=== PATIENT | female | born 1950 | race Caucasian/White ===

== ENCOUNTER 2023-09-30 16:32 | Inpatient (IN) ==
--- NOTE | 2023-09-30 16:43 | ED Triage Note ---
Date of Service September 30, 2023 Provider in Triage Author: Arthur Sidhu History of Present Illness This patient was briefly evaluated while in triage. An abbreviated physical exam was performed. This patient is a 72-year-old Female who presents to the ED for evaluation of abdominal pain and back pain x 4 hours, states believes is a kidney stone. Pt reports bilateral flank pain with radiation to abdomen, epigastric pain and cramping. Physical Exam CONSTITUTIONAL: in no acute pain or distress, resting comfortably SKIN: pink, warm, dry CARDIAC: regular rate and rhythm RESPIRATORY: in no respiratory distress, lungs clear to auscultation ABDOMEN: + epigastric TTP MSK: 5/5 strength throughout NEURO: no neuro deficits, alert and oriented x 3 Initial orders for labs and / or imaging were placed and patient was placed in the waiting area until a bed is available. Please see further documentation for the full ED course.
[2023-09-30 18:24] LABS: Hematocrit (blood only) 45.6 % (37.0-47.0); Hemoglobin 16.2 g/dl (12.0-16.0); Mean Corpuscular Hemoglobin 32.4 pg (25.0-34.0); Mean Corpuscular Hgb Conc 35.5 g/dL (32.0-36.0); Mean Corpuscular Volume 91.2 fL (80.0-100.0); Platelet Count 270 K/uL (130-400); RDW Coefficient of Variation 11.8 % (11.5-14.5); RDW Standard Deviation 39.5 fL (36.4-46.3)
[2023-09-30 18:48] LABS: Alanine Aminotransferase 243 U/L (7-52); Albumin Level 4.3 gm/dl (3.4-5.0); Alkaline Phosphatase 255 U/L (34-104); Anion Gap 14 (3-11); Aspartate Aminotransferase 166 U/L (13-39); BUN Creatinine Ratio 15.6 (10-20); Bilirubin,Total 4.8 mg/dl (0.2-1.0); Blood Urea Nitrogen 12 mg/dl (6-23); Calcium 10.2 mg/dl (8.6-10.3); Carbon Dioxide 24 mmol/L (21-32); Chloride 97 mmol/L (98-107); Est GFR (African American) 89.4 ml/min; Est GFR (Non-African American) 77.1 ml/min; Globulin 4.2 gm/dl (2.5-4.0); Glucose 345 mg/dl (70-99(Fasting)); Potassium 4.2 mmol/L (3.5-5.1); Sodium 135 mmol/L (136-145); Total Protein 8.5 gm/dl (6.0-8.3); Troponin I High Sensitivity 5.3 pg/ml (0-14)
[2023-09-30] MEDS ORDERED: SODIUM CHLORIDE 0.9% 1,000 ML IV ONE (18:48)
[2023-09-30 18:55] LABS: Basophils # (auto) 0.05 K/uL (0.00-0.20); Basophils % (auto) 0.3 %; Immature Granulocytes # (auto) 0.11 K/uL (0.01-0.20); Immature Granulocytes % (auto) 0.6 %; Lymphocytes # (auto) 0.36 K/uL (1.20-3.40); Lymphocytes % (auto) 2.1 %; Monocytes # (auto) 0.88 K/uL (0.11-0.59); Monocytes % (auto) 5.1 %; Neutrophils % (auto) 91.9 %
[2023-09-30 18:58] LABS: Lipase 8093 U/L (11-82)
--- NOTE | 2023-09-30 19:05 | Emergency Department Note ---
Impression & Plan Acute gallstone pancreatitis, Transaminitis, Abdominal pain ED Provider Note NAME: SHARI SUTTON AGE: 72 SEX: F : 1950 ARRIVES VIA: Ambulance INFORMANT: Patient ED PROVIDER(S): Arthur Sidhu DO CHIEF COMPLAINT: Abdominal pain HPI: Patient is a 72-year-old female who presents to the ER for epigastric abdominal pain which started earlier this morning. She notes over the weekend she did have some right sided back pain. She felt like that was consistent with her previous kidney stones. She denies any headache or change in vision. She does have some nausea and tried to vomit. No dysuria, urgency, or frequency. No other exacerbating or remitting factors. Denies any history of gallstones or cancer. ADDITIONAL HISTORY OBTAINED: Per HPI Chronic Medical/Social Conditions Affecting Care: Per HPI PAST MEDICAL HISTORY:See Below PAST SURGICAL HISTORY:See Below FAMILY HISTORY:See Below SOCIAL HISTORY:See Below HOME MEDICATIONS:See Below ALLERGIES:See Below VITALS:See Below PHYSICAL EXAMINATION: GENERAL: Sitting up in bed, alert, disheveled, mild distress EYE EXAM: normal conjunctiva. PERRL and EOM's grossly intact. OROPHARYNX: mucous membranes are moist NECK: supple, no nuchal rigidity, no adenopathy, non-tender LUNGS: Clear to auscultation. Normal chest wall mechanics HEART: no murmurs, S1 normal and S2 normal ABDOMEN: abdomen soft, non-tender, normo-active bowel sounds, no masses, no rebound or guarding. UPPER EXTREMITIES: upper extremities are grossly normal. LOWER EXTREMITIES: No pitting edema. NEURO EXAM: Normal sensorium, cranial nerves II-XII grossly intact, normal speech, no gross weakness of arms, no gross weakness of legs. MEDICAL DECISION MAKING: Patient is a 72-year-old female who presents ER for the above-stated complaint. IV was established blood work was obtained. Labs show leukocytosis 17,000. No significant anemia. BMP with a glucose of 340. Lactate was mildly elevated 2.4. Bilirubin was elevated at nearly 5 and and there was a transaminitis. Troponin was negative. Lipase elevated at 8000. There is a significant delay in care due to high volumes. UA was contaminated. CT abdomen pelvis shows gallstones and pancreatitis. Do favor this consistent with choledocholithiasis causing gallstone pancreatitis. Discussed with Dr. Lewis who agrees with admission here as GI can perform an ERCP. Patient was given IV fluids, morphine and Zosyn. Discussed with Dr. Ugalde approved for further evaluation management treatment. Consults/Care Managements Discussions: Per MDM Triage Nursing notes reviewed. Limited review of prior medical records performed Vital Signs: reviewed and remarkable for no significant abnormalities Differential diagnosis: Differential diagnoses includes but is not limited to gastritis, peptic ulcer disease, GERD, gallbladder disease, pancreatitis, small bowel obstruction, appendicitis, diverticulitis, hernia, urinary tract infection, torsion, perforation, trauma, infectious. ER treatment provided: See below Diagnostics interpreted by me include EKG and cardiac monitoring as listed below: -Cardiac Monitoring: An order was placed for continuous cardiac monitoring. The monitor shows a rate of 101 with sinus rhythm. -ECG: Sinus tachycardia rate of 122 Right bundle branch block T wave inversion in septal leads QTc 498 -Laboratory studies:Interpreted by me as stated above in MDM and shown below. Imaging studies: Xrays: As interpreted by me:none CTs show: CT abdomen pelvis per my preliminary interpretation shows dilated gallbladder with gallstones CT abdomen pelvis per radiology shows no acute pathology Procedures:none Critical Care: None Past Med/Surg History Social History Smoking Status: Never smoker Preferred Language: German Feels Safe at Home: Yes Allergies Allergies Allergy/AdvReac Type Severity Reaction Status Date / Time aspirin Allergy ringing Verified 09/30/23 22:08 ears,shakes,diarrhea,upset stomach Tetanus Vaccines and Toxoid Allergy convulsions Verified 09/30/23 22:09 coconut AdvReac Diarrhea Verified 09/30/23 22:13 diazepam [From Valium] AdvReac doesn't Verified 09/30/23 22:12 work procaine [From Novocain] 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 Allergy migraine Uncoded 09/30/23 22:10 headaches Home Meds Home Medications Medication Instructions Recorded Confirmed No Known Home Medications 09/30/23 09/30/23 Results & Data (ED) Vital Signs Vital Signs - 24 hr 09/30/23 16:41 09/30/23 21:29 09/30/23 21:33 Temperature 36.6 C Temperature Source Temporal Artery Scan Pulse Rate 101 H 120 H 107 H Pulse Rate [Apical] Respiratory Rate 18 22 Respiratory Effort / Characteristics Respiratory Depth Respiratory Pattern Blood Pressure 159/88 H Blood Pressure [Right Arm] Blood Pressure Mean 111 Blood Pressure Mean [Right Arm] Blood Pressure Position Sitting Pulse Oximetry 97 95 Oxygen Delivery Method Room Air Room Air Sepsis Recent Fever Within 48 Hours No Sepsis New/Unexplained Change in Mental Status N/A Sepsis Action Taken by Nursing No Action Required 09/30/23 22:17 09/30/23 23:49 Temperature Temperature Source Pulse Rate Pulse Rate [Apical] 92 H 84 Respiratory Rate 24 22 Respiratory Effort / Characteristics Non-Labored Spontaneous Non-Labored Spontaneous Respiratory Depth Normal Normal Respiratory Pattern Regular Regular Blood Pressure Blood Pressure [Right Arm] 143/74 H 129/64 Blood Pressure Mean Blood Pressure Mean [Right Arm] 97 85 Blood Pressure Position Pulse Oximetry 96 93 Oxygen Delivery Method Room Air Room Air Sepsis Recent Fever Within 48 Hours Sepsis New/Unexplained Change in Mental Status Sepsis Action Taken by Nursing Laboratory Data 09/30/23 18:05 09/30/23 18:05 Lab Results 09/30/23 09/30/23 09/30/23 Range/Units 18:05 19:04 20:17 WBC 17.20 H (4.8-10.8) K/ul RBC 5.00 (4.20-5.40) M/uL Hgb 16.2 H (12.0-16.0) g/dl Hct 45.6 (37.0-47.0) % MCV 91.2 (80.0-100.0) fL MCH 32.4 (25.0-34.0) pg MCHC 35.5 (32.0-36.0) g/dL RDW Std Deviation 39.5 (36.4-46.3) fL RDW Coeff of Laura 11.8 (11.5-14.5) % Plt Count 270 (130-400) K/uL MPV 10.0 (9.4-12.4) fL Immature Gran % (Auto) 0.6 % Neut % (Auto) 91.9 % Lymph % (Auto) 2.1 % Liberty % (Auto) 5.1 % Eos % (Auto) 0.0 % Baso % (Auto) 0.3 % Neut # (Auto) 15.80 H (1.40-6.50) K/uL Lymph # (Auto) 0.36 L (1.20-3.40) K/uL Liberty # (Auto) 0.88 H (0.11-0.59) K/uL Eos # (Auto) 0.00 (0.00-0.50) K/uL Baso # (Auto) 0.05 (0.00-0.20) K/uL Immature Gran # (Auto) 0.11 (0.01-0.20) K/uL Sodium 135 L (136-145) mmol/L Potassium 4.2 (3.5-5.1) mmol/L Chloride 97 L (98-107) mmol/L Carbon Dioxide 24 (21-32) mmol/L Anion Gap 14 H (3-11) BUN 12 (6-23) mg/dl Creatinine 0.77 (0.6-1.2) mg/dl Est Cr Clr Drug Dosing Not Reportable Est GFR ( Amer) 89.4 ml/min Est GFR (Non-Af Amer) 77.1 ml/min BUN/Creatinine Ratio 15.6 (10-20) Glucose 345 H* (70-99(Fasting)) mg/dl Lactate 2.4 H* (0.4-2.0) mmol/L Calcium 10.2 (8.6-10.3) mg/dl Total Bilirubin 4.8 H (0.2-1.0) mg/dl AST 166 H (13-39) U/L ALT 243 H (7-52) U/L Alkaline Phosphatase 255 H (34-104) U/L Troponin I High Sens 5.3 (0-14) pg/ml Total Protein 8.5 H (6.0-8.3) gm/dl Albumin 4.3 (3.4-5.0) gm/dl Globulin 4.2 H (2.5-4.0) gm/dl Albumin/Globulin Ratio 1.0 (0.9-2) Lipase 8093 H (11-82) U/L Urine Color Dark Yellow Urine Appearance Clear (Clear) Urine pH 5.0 (4.5-7.5) Ur Specific Hayti 1.029 (1.000-1.030) Urine Protein Trace H (Negative) Urine Glucose (UA) 3+ H (Negative) Urine Ketones 2+ H (Negative) Urine Blood Negative (Negative) Urine Nitrite Negative (Negative) Urine Bilirubin 1+ H (Negative) Urine Urobilinogen Negative (Negative) Ur Leukocyte Esterase Negative (Negative) Urine WBC (Auto) 5-10 H (0-5) /hpf Urine RBC (Auto) 0-4 (0-4) /hpf U Hyaline Cast (Auto) 1-5 (0-5) /lpf U Epithel Cells (Auto) >30 H (0-5) /lpf Urine Bacteria (Auto) 1+ H (Negative) 09/30/23 Range/Units 23:40 WBC (4.8-10.8) K/ul RBC (4.20-5.40) M/uL Hgb (12.0-16.0) g/dl Hct (37.0-47.0) % MCV (80.0-100.0) fL MCH (25.0-34.0) pg MCHC (32.0-36.0) g/dL RDW Std Deviation (36.4-46.3) fL RDW Coeff of Laura (11.5-14.5) % Plt Count (130-400) K/uL MPV (9.4-12.4) fL Immature Gran % (Auto) % Neut % (Auto) % Lymph % (Auto) % Liberty % (Auto) % Eos % (Auto) % Baso % (Auto) % Neut # (Auto) (1.40-6.50) K/uL Lymph # (Auto) (1.20-3.40) K/uL Liberty # (Auto) (0.11-0.59) K/uL Eos # (Auto) (0.00-0.50) K/uL Baso # (Auto) (0.00-0.20) K/uL Immature Gran # (Auto) (0.01-0.20) K/uL Sodium (136-145) mmol/L Potassium (3.5-5.1) mmol/L Chloride (98-107) mmol/L Carbon Dioxide (21-32) mmol/L Anion Gap (3-11) BUN (6-23) mg/dl Creatinine (0.6-1.2) mg/dl Est Cr Clr Drug Dosing Est GFR ( Amer) ml/min Est GFR (Non-Af Amer) ml/min BUN/Creatinine Ratio (10-20) Glucose (70-99(Fasting)) mg/dl Lactate 1.9 (0.4-2.0) mmol/L Calcium (8.6-10.3) mg/dl Total Bilirubin (0.2-1.0) mg/dl AST (13-39) U/L ALT (7-52) U/L Alkaline Phosphatase (34-104) U/L Troponin I High Sens (0-14) pg/ml Total Protein (6.0-8.3) gm/dl Albumin (3.4-5.0) gm/dl Globulin (2.5-4.0) gm/dl Albumin/Globulin Ratio (0.9-2) Lipase (11-82) U/L Urine Color Urine Appearance (Clear) Urine pH (4.5-7.5) Ur Specific Hayti (1.000-1.030) Urine Protein (Negative) Urine Glucose (UA) (Negative) Urine Ketones (Negative) Urine Blood (Negative) Urine Nitrite (Negative) Urine Bilirubin (Negative) Urine Urobilinogen (Negative) Ur Leukocyte Esterase (Negative) Urine WBC (Auto) (0-5) /hpf Urine RBC (Auto) (0-4) /hpf U Hyaline Cast (Auto) (0-5) /lpf U Epithel Cells (Auto) (0-5) /lpf Urine Bacteria (Auto) (Negative) Administered Medications Discontinued Medications Sodium Chloride (Nss) 1,000 mls @ 999 mls/hr IV .Q1H1M ONE Stop: 09/30/23 19:48 Last Infusion: 09/30/23 22:48 Dose: Infused Documented By: maintenance worker swimming pool: 09/30/23 21:10 Dose: 999 mls/hr Documented By: PRUDENCE Piperacillin Sod/Tazobactam Sod (Zosyn) 4.5 gm in 100 mls @ 200 mls/hr IV NOW ONE Stop: 09/30/23 21:13 Last Infusion: 09/30/23 22:48 Dose: Infused Documented By: maintenance worker swimming pool: 09/30/23 21:30 Dose: 200 mls/hr Documented By: PRUDENCE Insulin Human Regular (Novolin-R Insulin Per Unit Charge) 4 units IV NOW STA Stop: 09/30/23 23:13 Last Admin: 09/30/23 23:39 Dose: 4 units Documented By: MED Co-signed By: LEONELA Morphine Sulfate (Morphine Sulfate 10 Mg/Ml Carp/Vial) 6 mg IV NOW STA Stop: 09/30/23 20:45 Last Admin: 09/30/23 21:24 Dose: 6 mg Documented By: PRUDENCE Ondansetron HCl (Ondansetron Inj 2 Mg/Ml 2 Ml Vial) 4 mg IV NOW STA Stop: 09/30/23 20:45 Last Admin: 09/30/23 21:17 Dose: 4 mg Documented By: PRUDENEC Imaging Data Radiologist's Impression: Abdomen/Pelvis CT 09/30/23 16:43 Exam(s): CT ABDOMEN + PELVIS With Contrast IV Amt: 88ML OPTIRAY 320 EXAM: CT Abdomen and Pelvis With Intravenous Contrast CLINICAL HISTORY: Reason for exam: Epigastric/bilateral flank pain. TECHNIQUE: Axial computed tomography images of the abdomen and pelvis with intravenous contrast. CTDI is 25.04 mGy and DLP is 1134.28 mGy-cm. Automated exposure control was utilized for the study. A dose lowering technique was utilized adhering to the principles of ALARA. CONTRAST: Patient received 88ML OPTIRAY 320 of IV contrast COMPARISON: No relevant prior studies available. FINDINGS: Lung bases: Unremarkable. No mass. No consolidation. ABDOMEN: Liver: Hepatic steatosis. Gallbladder and bile ducts: Cholelithiasis. No ductal dilation. Pancreas: Unremarkable. No mass. No ductal dilation. Spleen: Unremarkable. No splenomegaly. Adrenals: Unremarkable. No mass. Kidneys and ureters: Unremarkable. No hydronephrosis or delayed nephrogram. Stomach and bowel: Unremarkable. No obstruction. No mucosal thickening. PELVIS: Appendix: No findings to suggest acute appendicitis. Bladder: Decompressed urinary bladder. Reproductive: Unremarkable as visualized. ABDOMEN and PELVIS: Intraperitoneal space: Unremarkable. No free air. No significant fluid collection. Bones/joints: No acute fracture. No dislocation. Soft tissues: Unremarkable. Vasculature: Unremarkable. No abdominal aortic aneurysm. Lymph nodes: Unremarkable. No enlarged lymph nodes. IMPRESSION: 1. No hydronephrosis or delayed nephrogram. 2. Hepatic steatosis. 3. Cholelithiasis. Electronically signed by: Tobias Metz MD 09/30/23 20:23 PM Gallbladder Ultrasound 09/30/23 21:31 Exam(s): US GALLBLADDER EXAM: US Abdomen Limited, Gallbladder CLINICAL HISTORY: Reason for exam: gallstones. TECHNIQUE: Real-time ultrasound of the right upper quadrant with image documentation. COMPARISON: No relevant prior studies available. FINDINGS: Gallbladder: Cholelithiasis. No gallbladder wall thickening. Negative Carson sign. Common bile duct: Unremarkable as visualized. No stones. No dilation. Normal, 5 mm common bile duct. Pancreas: Unremarkable as visualized. IMPRESSION: Cholelithiasis. No gallbladder wall thickening. Negative Carson sign. Electronically signed by: Tobias Metz MD 10/01/23 00:08 AM Discharge Plan Visit Data Chief Complaint: Kidney Stone Stated Complaint: ABDOMINAL/BACK PAIN, KIDNEY STONE ED Provider: Arthur Sidhu Discharge Problem: Acute gallstone pancreatitis, Transaminitis, Abdominal pain Forms Stand Alone Forms: Adlyfe Prescriptions Prescriptions: No Action No Known Home Medications Referrals Referrals: PCP,NO [Primary Care Provider] - Discharge Problem: Abdominal pain Qualifiers: Abdominal location: unspecified location Qualified Code(s): R10.9 - Unspecified abdominal pain
--- NOTE | 2023-09-30 20:23 | CT Scan Report ---
Exam(s): CT ABDOMEN + PELVIS With Contrast IV Amt: 88ML OPTIRAY 320 EXAM: CT Abdomen and Pelvis With Intravenous Contrast CLINICAL HISTORY: Reason for exam: Epigastric/bilateral flank pain. TECHNIQUE: Axial computed tomography images of the abdomen and pelvis with intravenous contrast. CTDI is 25.04 mGy and DLP is 1134.28 mGy-cm. Automated exposure control was utilized for the study. A dose lowering technique was utilized adhering to the principles of ALARA. CONTRAST: Patient received 88ML OPTIRAY 320 of IV contrast COMPARISON: No relevant prior studies available. FINDINGS: Lung bases: Unremarkable. No mass. No consolidation. ABDOMEN: Liver: Hepatic steatosis. Gallbladder and bile ducts: Cholelithiasis. No ductal dilation. Pancreas: Unremarkable. No mass. No ductal dilation. Spleen: Unremarkable. No splenomegaly. Adrenals: Unremarkable. No mass. Kidneys and ureters: Unremarkable. No hydronephrosis or delayed nephrogram. Stomach and bowel: Unremarkable. No obstruction. No mucosal thickening. PELVIS: Appendix: No findings to suggest acute appendicitis. Bladder: Decompressed urinary bladder. Reproductive: Unremarkable as visualized. ABDOMEN and PELVIS: Intraperitoneal space: Unremarkable. No free air. No significant fluid collection. Bones/joints: No acute fracture. No dislocation. Soft tissues: Unremarkable. Vasculature: Unremarkable. No abdominal aortic aneurysm. Lymph nodes: Unremarkable. No enlarged lymph nodes. IMPRESSION: 1. No hydronephrosis or delayed nephrogram. 2. Hepatic steatosis. 3. Cholelithiasis. Electronically signed by: Tobias Metz MD 09/30/23 20:23 PM
[2023-09-30] MEDS ORDERED: MoRPHine SULFATE 10 MG/ML CARP/VIAL IV STA (20:44)
[2023-09-30] MEDS ORDERED: PIPERACILLIN/TAZOBACTAM 4.5 GM/100 ML BAG IV ONE (20:44)
[2023-09-30] MEDS ORDERED: ONDANSETRON INJ 2 MG/ML 2 ML VIAL IV STA (20:44)
--- NOTE | 2023-09-30 21:30 | Surgery Consultation ---
Date of Consultation September 30, 2023 Assessment & Plan (1) Acute gallstone pancreatitis: I discussed with the treating emergency room physician and the patient is being admitted on the hospitalist service. We recommend proceeding as follows from a surgical perspective: It appears that the patient is suffering from gallstone pancreatitis Analgesics to be provided Antiemetics to be provided Patient was to be resuscitated aggressively with intravenous fluids N.p.o. status should be implemented Serial labs should be for May be beneficial to check a gallbladder ultrasound for further delineation of the patient's biliary anatomy I discussed with the treating emergency room physician and he has already discussed case with gastroenterology as I feel the patient will likely need an ERCP due to her elevated LFTs. We will leave the decision about ordering an MRCP to this service The patient may benefit from a cholecystectomy at some point to prevent recurrence of gallstone pancreatitis. I did discuss with the patient that prior to undergoing cholecystectomy she will need a gastroenterology evaluation to evaluate for the potential of choledocholithiasis and would also be preferable to have her pancreatitis resolved or improved prior to undergoing surgical intervention Will continue to follow along with the patient is hospitalized with further recommendations to follow Supervising Physician Co-Signing Physician Notes d/w HIRAL Novak, labs and imaging reviewed, agree with above. Cholelithiasis with pancreatitis and likely choledocholithiasis. Admission to medicine, iv abx, npo, GI consult for possible ERCP. Cholecystectomy at some point, either while inpatient or short interval follow up as outpatient. will follow. History of Present Illness Reason for Consultation: Gallstone pancreatitis History of Present Illness This is a 72-year-old female who presented to the emergency department secondary to development of bilateral flank pain at approximate 11:00 AM this morning. Patient does have a history of kidney stones and had pain similar to this when she was passing kidney stones and therefore thought that that was what the problem was. In addition to the bilateral flank pain she notes that the pain subsequently began to develop in the epigastric area. The patient self-induced vomiting as she thought that this would make her feel better but it provided no relief. She is otherwise not had any nausea or vomiting. She denies any other palliative or provocative factors and denies any other radiation to the pain. She denies any fevers, shakes, or chills. She has never had any prior surgical intervention before. She has never had either an upper or lower endoscopy before Since arrival to hospital the patient has had labs and imaging which independent reviewed. Patient had a CT scan of the abdomen and pelvis. This scan did not demonstrate any kidney stones or hydronephrosis. The patient was noted to have cholelithiasis. There is no biliary ductal dilatation. The pancreas was noted to be unremarkable on this study. Labs included a CBC were white blood cell count was elevated at 17.2. Her hemoglobin and hematocrit were 16.2 and 45.6. Platelet count was normal. Chemistry profile showed sodium was 135 with a normal potassium. Her BUN and creatinine were both normal. The patient was noted to have an elevated lactic acid level at 2.4. Her total bilirubin was elevated at 4.8. Her AST and ALT were both elevated at 166 and 243 r espectively. Her alkaline phosphatase was 255. The patient was noted to have an elevated lipase at 8093. At the time of my interview the patient was resting comfortably in bed and she was in no distress Concerning past medical history the patient only has a past medical history of kidney stones Concerning past surgical history she has never had surgery. Concerning allergies she is allergic to aspirin and tetanus shots. 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 Allergy migraine Uncoded 09/30/23 22:10 headaches Home Medications Medication Instructions Recorded Confirmed Type No Known Home Medications 09/30/23 09/30/23 History Patient History Social History Smoking Status: Never smoker Preferred Language: Swazi Feels Safe at Home: Yes Review of Systems Constitutional: no fever and no chills Eyes: + corrective lenses Ear, Nose, Mouth, Throat: no hearing loss Respiratory: no cough and no dyspnea Cardiovascular: no chest pain Gastrointestinal: as per Subjective / HPI Genitourinary: no dysuria Musculoskeletal: + back pain (Bilateral flank) Integumentary: no rash Neurologic: no localized weakness Physical Exam Constitutional: WD/WN, vitals as above Eyes: + anicteric sclerae ENMT: Ears: no hearing impairment and no external ear abnormality Sublingual jaundice is absent at the time of my Neck: trachea midline Respiratory: normal respiratory effort; no respiratory distress and no labored breathing Cardiovascular: Rate/Rhythm: regular rate and regular rhythm Gastrointestinal (Abdomen): Abdomen is soft and nondistended. Her abdomen is nonrigid. There is no rebound tenderness or guarding but patient had marked pain with palpation in the epigastric Musculoskeletal: No calf tenderness Skin: no rashes Neurologic: moves all extremities Psychiatric: A+Ox3, euthymic affect Results & Data Vital Signs (Past 12 Hours) Vital Signs Temp Pulse Resp BP Pulse Ox O2 Del Method 09/30/23 16:41 36.6 C 101 H 18 159/88 H 97 Room Air PG Care Time/CCT Total # of Minutes Spent Total Time Spent with Patient: Total time spent is greater than 50% in coordination of care (as documented) at patient's floor/unit and/or counseling patient: Coding Level of Care Code 96028 INT INP/OBS CARE 3/75MIN Diagnoses Acute gallstone pancreatitis K85.10
[2023-09-30 21:37] LABS: Appearance Urine Clear (Clear); Bacteria Urine Automated 1+ (Negative); Blood Urine Negative (Negative); Color Urine Dark Yellow; Epithelial Cell Urine Auto >30 /lpf (0-5); Glucose Urine UA 3+ (Negative); Ketones Urine 2+ (Negative); Leukocyte Esterase Urine Negative (Negative); Nitrite Urine Negative (Negative); Protein Urine Trace (Negative); RBC Urine Automated 0-4 /hpf (0-4); Specific Gravity Urine 1.029 (1.000-1.030); Urobilinogen Urine Negative (Negative)
[2023-09-30 21:43] LABS: Bilirubin Urine 1+ (Negative)
[2023-09-30] MEDS ORDERED: NovoLIN-R INSULIN PER UNIT CHARGE IV STA (23:12)
--- NOTE | 2023-09-30 23:22 | History & Physical Report ---
Date of Service September 30, 2023 Assessment & Plan (1) Acute gallstone pancreatitis: Plan: 72-year-old female with past med history significant for possible hiatal hernia and did not go to doctors for last 20 years comes because of abdominal pain radiating to the back started at 11 AM today. It was 8/10 in severity. Also with nausea. Denies any fevers. Had normal bowel movement today morning. Normal bladder movements. Denies any chest pain or shortness of breath. No cough. No headache. No runny nose or sore throat. Otherwise appetite is okay. Otherwise ambulating and climbing steps okay. Patient states last few months she is having on and off abdominal pain after eating food but it is to subside but today it was persistent so she came to the ER. Currently pain is 2/10 in severity. Resting comfortably. Acute gallstone pancreatitis Presents with abdominal pain Elevated lipase Elevated LFTs. Possible choledocholithiasis. Will follow gallbladder ultrasound and MRCP results Follow repeat LFTs Will check lipid profile Aggressive IV fluids, IV Dilaudid as needed, IV antiemetics as needed Consult GI and surgery Close monitor Possible cholecystitis/cholangitis Will follow gallbladder ultrasound and MRCP IV fluids and IV Zosyn GI and surgery consulted Close monitor. Hyperglycemia New onset diabetes Not been doctor for many years Will place on Lantus insulin sliding scale Follow blood sugars and HbA1c levels DVT prophylaxis SCDs for now Disposition Med/tele Full code History of Present Illness Chief Complaint: Abdominal pain Primary Care Provider: NO PCP 72-year-old female with past med history significant for possible hiatal hernia and did not go to doctors for last 20 years comes because of abdominal pain radiating to the back started at 11 AM today. It was 8/10 in severity. Also with nausea. Denies any fevers. Had normal bowel movement today morning. Normal bladder movements. Denies any chest pain or shortness of breath. No cough. No headache. No runny nose or sore throat. Otherwise appetite is okay. Otherwise ambulating and climbing steps okay. Patient states last few months she is having on and off abdominal pain after eating food but it is to subside but today it was persistent so she came to the ER. Currently pain is 2/10 in severity. Resting comfortably. Past medical history. As mentioned above Past surgical history. Denies any surgeries Social history. Social smoking. Alcohol occasional. No drug use. Family history. Mother had skin cancer. Brother had skin cancer. Allergies Allergy/AdvReac Type Severity Reaction Status Date / Time aspirin Allergy ringing Verified 09/30/23 22:08 ears,shakes,diarrhea,upset stomach Tetanus Vaccines and Toxoid Allergy convulsions Verified 09/30/23 22:09 coconut AdvReac Diarrhea Verified 09/30/23 22:13 diazepam [From Valium] AdvReac doesn't Verified 09/30/23 22:12 work procaine [From Novocain] AdvReac 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 Allergy migraine Uncoded 09/30/23 22:10 headaches Home Medications Medication Instructions Recorded Confirmed Type No Known Home Medications 09/30/23 09/30/23 History Past Med/Surg History Social History Smoking Status: Never smoker Hx Alcohol Use: Yes Hx Substance Use: No Preferred Language: Bahamian Beliefs That Will Affect Care: None Current Living Situation: Alone Other Information That Helps Us Care for You: No Feels Safe at Home: Yes Safety Concerns: Feels Safe At This Time Assistive Devices: Glasses Review of Systems Review of Systems: All systems reviewed & are unremarkable except as noted in HPI & below Physical Exam Physical Exam: General-Not in distress Head- atraumatic Eyes- PERRL. ENT- oropharynx clear Neck- supple, no JVD. Lungs- clear to auscultation no wheezing or crackles. Heart- regular rhythm; no murmur, no gallop. Abdomen- normal bowel sounds, soft, mild tenderness in RUQ and epigastric region Extremities- Trace pretibial edema, no erythema seen. Neuro- alert, oriented x 3; PERRL,; no facial palsy; no dysarthria; moves extremities. Skin- warm & dry Results & Data Results & Data Vital Signs (Past 12 Hours) Vital Signs Temp Pulse Pulse Resp BP BP Pulse Ox 09/30/23 22:17 92 H 24 143/74 H 96 09/30/23 21:33 107 H 22 95 09/30/23 21:29 120 H 09/30/23 16:41 36.6 C 101 H 18 159/88 H 97 O2 Del Method 09/30/23 22:17 Room Air 09/30/23 21:33 Room Air 09/30/23 21:29 09/30/23 16:41 Room Air Diagnostic Findings Laboratory Results WBC 17.20 K/ul (4.8-10.8) H 09/30/23 18:05 RBC 5.00 M/uL (4.20-5.40) 09/30/23 18:05 Hgb 16.2 g/dl (12.0-16.0) H 09/30/23 18:05 Hct 45.6 % (37.0-47.0) 09/30/23 18:05 MCV 91.2 fL (80.0-100.0) 09/30/23 18:05 MCH 32.4 pg (25.0-34.0) 09/30/23 18:05 MCHC 35.5 g/dL (32.0-36.0) 09/30/23 18:05 RDW Std Deviation 39.5 fL (36.4-46.3) 09/30/23 18:05 RDW Coeff of Laura 11.8 % (11.5-14.5) 09/30/23 18:05 Plt Count 270 K/uL (130-400) 09/30/23 18:05 MPV 10.0 fL (9.4-12.4) 09/30/23 18:05 Immature Gran % (Auto) 0.6 % 09/30/23 18:05 Neut % (Auto) 91.9 % 09/30/23 18:05 Lymph % (Auto) 2.1 % 09/30/23 18:05 [place] % (Auto) 5.1 % 09/30/23 18:05 Eos % (Auto) 0.0 % 09/30/23 18:05 Baso % (Auto) 0.3 % 09/30/23 18:05 Neut # (Auto) 15.80 K/uL (1.40-6.50) H 09/30/23 18:05 Lymph # (Auto) 0.36 K/uL (1.20-3.40) L 09/30/23 18:05 [place] # (Auto) 0.88 K/uL (0.11-0.59) H 09/30/23 18:05 Eos # (Auto) 0.00 K/uL (0.00-0.50) 09/30/23 18:05 Baso # (Auto) 0.05 K/uL (0.00-0.20) 09/30/23 18:05 Immature Gran # (Auto) 0.11 K/uL (0.01-0.20) 09/30/23 18:05 Sodium 135 mmol/L (136-145) L 09/30/23 18:05 Potassium 4.2 mmol/L (3.5-5.1) 09/30/23 18:05 Chloride 97 mmol/L (98-107) L 09/30/23 18:05 Carbon Dioxide 24 mmol/L (21-32) 09/30/23 18:05 Anion Gap 14 (3-11) H 09/30/23 18:05 BUN 12 mg/dl (6-23) 09/30/23 18:05 Creatinine 0.77 mg/dl (0.6-1.2) 09/30/23 18:05 Est Cr Clr Drug Dosing Not Reportable 09/30/23 18:05 Est GFR ( Amer) 89.4 ml/min 09/30/23 18:05 Est GFR (Non-Af Amer) 77.1 ml/min 09/30/23 18:05 BUN/Creatinine Ratio 15.6 (10-20) 09/30/23 18:05 Glucose 345 mg/dl (70-99(Fasting)) H* 09/30/23 18:05 Lactate 2.4 mmol/L (0.4-2.0) H* 09/30/23 20:17 Calcium 10.2 mg/dl (8.6-10.3) 09/30/23 18:05 Total Bilirubin 4.8 mg/dl (0.2-1.0) H 09/30/23 18:05 AST 166 U/L (13-39) H 09/30/23 18:05 ALT 243 U/L (7-52) H 09/30/23 18:05 Alkaline Phosphatase 255 U/L (34-104) H 09/30/23 18:05 Troponin I High Sens 5.3 pg/ml (0-14) 09/30/23 18:05 Total Protein 8.5 gm/dl (6.0-8.3) H 09/30/23 18:05 Albumin 4.3 gm/dl (3.4-5.0) 09/30/23 18:05 Globulin 4.2 gm/dl (2.5-4.0) H 09/30/23 18:05 Albumin/Globulin Ratio 1.0 (0.9-2) 09/30/23 18:05 Lipase 8093 U/L (11-82) H 09/30/23 18:05 Urine Color Dark Yellow 09/30/23 19:04 Urine Appearance Clear (Clear) 09/30/23 19:04 Urine pH 5.0 (4.5-7.5) 09/30/23 19:04 Ur Specific [place] 1.029 (1.000-1.030) 09/30/23 19:04 Urine Protein Trace (Negative) H 09/30/23 19:04 Urine Glucose (UA) 3+ (Negative) H 09/30/23 19:04 Urine Ketones 2+ (Negative) H 09/30/23 19:04 Urine Blood Negative (Negative) 09/30/23 19:04 Urine Nitrite Negative (Negative) 09/30/23 19:04 Urine Bilirubin 1+ (Negative) H 09/30/23 19:04 Urine Urobilinogen Negative (Negative) 09/30/23 19:04 Ur Leukocyte Esterase Negative (Negative) 09/30/23 19:04 Urine WBC (Auto) 5-10 /hpf (0-5) H 09/30/23 19:04 Urine RBC (Auto) 0-4 /hpf (0-4) 09/30/23 19:04 U Hyaline Cast (Auto) 1-5 /lpf (0-5) 09/30/23 19:04 U Epithel Cells (Auto) >30 /lpf (0-5) H 09/30/23 19:04 Urine Bacteria (Auto) 1+ (Negative) H 09/30/23 19:04 Impressions Abdomen/Pelvis CT 09/30/23 16:43 Exam(s): CT ABDOMEN + PELVIS With Contrast IV Amt: 88ML OPTIRAY 320 EXAM: CT Abdomen and Pelvis With Intravenous Contrast CLINICAL HISTORY: Reason for exam: Epigastric/bilateral flank pain. TECHNIQUE: Axial computed tomography images of the abdomen and pelvis with intravenous contrast. CTDI is 25.04 mGy and DLP is 1134.28 mGy-cm. Automated exposure control was utilized for the study. A dose lowering technique was utilized adhering to the principles of ALARA. CONTRAST: Patient received 88ML OPTIRAY 320 of IV contrast COMPARISON: No relevant prior studies available. FINDINGS: Lung bases: Unremarkable. No mass. No consolidation. ABDOMEN: Liver: Hepatic steatosis. Gallbladder and bile ducts: Cholelithiasis. No ductal dilation. Pancreas: Unremarkable. No mass. No ductal dilation. Spleen: Unremarkable. No splenomegaly. Adrenals: Unremarkable. No mass. Kidneys and ureters: Unremarkable. No hydronephrosis or delayed nephrogram. Stomach and bowel: Unremarkable. No obstruction. No mucosal thickening. PELVIS: Appendix: No findings to suggest acute appendicitis. Bladder: Decompressed urinary bladder. Reproductive: Unremarkable as visualized. ABDOMEN and PELVIS: Intraperitoneal space: Unremarkable. No free air. No significant fluid collection. Bones/joints: No acute fracture. No dislocation. Soft tissues: Unremarkable. Vasculature: Unremarkable. No abdominal aortic aneurysm. Lymph nodes: Unremarkable. No enlarged lymph nodes. IMPRESSION: 1. No hydronephrosis or delayed nephrogram. 2. Hepatic steatosis. 3. Cholelithiasis. Electronically signed by: Tobias Metz MD 09/30/23 20:23 PM ECG Additional Comments: ECG. Sinus tachycardia rate of PACs rate of 122. Possible left atrial enlargement. Incomplete right bundle branch block. Code Status & VTE Plan VTE Prophylaxis Plan VTE Prophylaxis will be ordered: Yes
--- NOTE | 2023-10-01 00:09 | Ultrasound Report ---
Exam(s): US GALLBLADDER EXAM: US Abdomen Limited, Gallbladder CLINICAL HISTORY: Reason for exam: gallstones. TECHNIQUE: Real-time ultrasound of the right upper quadrant with image documentation. COMPARISON: No relevant prior studies available. FINDINGS: Gallbladder: Cholelithiasis. No gallbladder wall thickening. Negative Carson sign. Common bile duct: Unremarkable as visualized. No stones. No dilation. Normal, 5 mm common bile duct. Pancreas: Unremarkable as visualized. IMPRESSION: Cholelithiasis. No gallbladder wall thickening. Negative Carson sign. Electronically signed by: Tobias Metz MD 10/01/23 00:08 AM
[2023-10-01] MEDS ORDERED: DEXTROSE 50% 50 ML SYRINGE IV PRN (01:01)
[2023-10-01] MEDS ORDERED: LANTUS PER UNIT CHARGE SQ SCH (01:01)
[2023-10-01] MEDS ORDERED: GLUCAGON FOR INJ 1 MG VIAL SQ PRN (01:01)
[2023-10-01] MEDS ORDERED: NITROGLYCERIN SL 0.4 MG/TAB TAB SL PRN (01:01)
[2023-10-01] MEDS ORDERED: CARBOHYDRATES FOR HYPOGLYCEMIA PO PRN (01:01)
[2023-10-01] MEDS ORDERED: PHARMACY GLYCEMIC MGMT CONSULT PRN (01:01)
[2023-10-01] MEDS ORDERED: GLUCOSE 10 TAB/TUBE PO PRN (01:01)
[2023-10-01] MEDS ORDERED: GLUCOSE 40% GEL 15 GM TUBE PO PRN (01:01)
[2023-10-01] MEDS ORDERED: ONDANSETRON INJ 2 MG/ML 2 ML VIAL IV PRN ×2 (01:01→10:56)
[2023-10-01] MEDS ORDERED: Patient's HEIGHT &/or WEIGHT Needed STA (01:11)
[2023-10-01] MEDS: LACTATED RINGER'S 1,000 ML IV SCH ×4 (01:25→16:14)
--- NOTE | 2023-10-01 03:03 | Magnetic Resonance Report ---
Exam(s): MRI MRCP EXAM: MR Abdomen Without Intravenous Contrast, MRCP Protocol CLINICAL HISTORY: Reason for exam: chledocholithiasis? elevated lft, abdominal pain. TECHNIQUE: Multiplanar magnetic resonance images of the abdomen without intravenous contrast using MRCP protocol. COMPARISON: CT abdomen and pelvis 09/30/2023. FINDINGS: Lower thorax: Mild to moderate hiatal hernia. Bile ducts: Unremarkable. Normal size of the common bile duct with no evidence of bile duct stones. There is smooth tapering of the common bile duct at the sphincter of [place]. Gallbladder: Multiple tiny gallstones along the dependent portion of the gallbladder neck. Liver: Unremarkable. Pancreas: Unremarkable. No ductal dilation. Spleen: Unremarkable. No splenomegaly. Adrenals: Unremarkable. No mass. Kidneys and ureters: Mild bilateral perinephric stranding, otherwise normal bilateral kidneys. No hydronephrosis. Stomach and bowel: Unremarkable. No obstruction. IMPRESSION: 1. Multiple tiny gallstones otherwise unremarkable gallbladder with no signs of acute cholecystitis. 2. No biliary distention or biliary duct stone seen. Electronically signed by: Savita Gardner MD 10/01/23 03:02 AM
[2023-10-01] MEDS: PIPERACILLIN/TAZOBACTAM 4.5 GM in DEXTROSE 5% MINI-B 100 ML IV SCH ×3 (03:48→21:02)
[2023-10-01] MEDS: INSULIN ASPART PER UNIT CHARGE SC SCH ×4 (03:57→17:42)
[2023-10-01 05:11] LABS: Basophils # (auto) 0.02 K/uL (0.00-0.20); Basophils % (auto) 0.2 %; Hematocrit (blood only) 40.7 % (37.0-47.0); Hemoglobin 13.6 g/dl (12.0-16.0); Immature Granulocytes # (auto) 0.07 K/uL (0.01-0.20); Immature Granulocytes % (auto) 0.6 %; Lymphocytes # (auto) 0.83 K/uL (1.20-3.40); Lymphocytes % (auto) 7.3 %; Mean Corpuscular Hemoglobin 31.5 pg (25.0-34.0); Mean Corpuscular Hgb Conc 33.4 g/dL (32.0-36.0); Mean Corpuscular Volume 94.2 fL (80.0-100.0); Mean Platelet Volume 9.8 fL (9.4-12.4); Monocytes # (auto) 0.34 K/uL (0.11-0.59); Neutrophils # (auto) 10.09 K/uL (1.40-6.50); Neutrophils % (auto) 88.9 %; Platelet Count 226 K/uL (130-400); RDW Coefficient of Variation 11.9 % (11.5-14.5); RDW Standard Deviation 41.6 fL (36.4-46.3); Red Blood Count 4.32 M/uL (4.20-5.40); White Blood Count 11.35 K/ul (4.8-10.8)
[2023-10-01 06:54] LABS: Albumin Level 3.6 gm/dl (3.4-5.0); BUN Creatinine Ratio 16.3 (10-20); Bilirubin Direct 4.1 mg/dl (0-0.2); Bilirubin,Total 6.2 mg/dl (0.2-1.0); Calcium 9.1 mg/dl (8.6-10.3); Chol HDL Ratio 7.1 (0-5); Creatinine Clr Calc Pharmacy 64.4 ml/min; Est GFR (African American) 85.4 ml/min; Est GFR (Non-African American) 73.7 ml/min; Magnesium 1.9 mg/dl (1.7-2.4); Potassium 4.3 mmol/L (3.5-5.1)
[2023-10-01 07:47] LABS: Estimated Average Glucose 229 mg/dl; Hemoglobin A1C 9.6 % (4.5-5.6)
[2023-10-01] MEDS ORDERED: LANTUS PER UNIT CHARGE SC SCH ×2 (08:00→09:00)
--- NOTE | 2023-10-01 08:15 | Hospitalist Progress Note ---
Date of Service October 01, 2023 Assessment & Plan (1) Acute gallstone pancreatitis: Plan: 72-year-old female with past med history significant for possible hiatal hernia and did not go to doctors for last 20 years comes because of abdominal pain radiating to the back started at 11 AM today. It was 8/10 in severity. Also with nausea. Denies any fevers. Had normal bowel movement today morning. Normal bladder movements. Denies any chest pain or shortness of breath. No cough. No headache. No runny nose or sore throat. Otherwise appetite is okay. Otherwise ambulating and climbing steps okay. Patient states last few months she is having on and off abdominal pain after eating food but it is to subside but today it was persistent so she came to the ER. Acute gallstone pancreatitis Choledocholithiasis. Presents with abdominal pain Elevated lipase Elevated LFTs. Gallbladder ultrasound and MRCP obtained - no acute cholecystitis, + cholelithiasis GI and gen. surgery consulted - no plan for surgery at this time GI - pt is s/p ERCP - + choledocholithiasis, stone removed and stent placed, placed to repeat ERCP in 3 months and remove the stone monitor LFTs checked lipid profile Aggressive IV fluids, IV Dilaudid as needed, IV antiemetics as needed Closely monitor Possible cholecystitis/cholangitis gallbladder ultrasound and MRCP obtained - no acute cholecystitis, + cholelithiasis IV fluids and IV Zosyn GI and surgery consulted - no plan for surgery at this time, underwent ERCP as above Closely monitor. Hyperglycemia New onset diabetes Not been doctor for many years HbA1c level 9.6% placed on Lantus insulin sliding scale Follow blood sugars glycemic pharmacy consulted hospital educator DVT prophylaxis SCDs for now Disposition Med/tele Full code Admission and Anticipated Discharge Date Admission Date: September 30, 2023 Subjective Pt seen in follow up of gallstone pancreatitis, choledocholithiasis Underwent ERCP earlier today Currently sitting up in bed in NAD, reports abd. pain has improved by a lot since she had the procedure No fever, chills, chest pain, shortness of breath, n/v Review of Systems Review of Systems: All systems reviewed & are unremarkable except as noted in Subjective Physical Exam Physical Exam: General- WD/WN F in NAD Head- atraumatic Eyes- PERRL. ENT- oropharynx clear Neck- supple, no JVD. Lungs- clear to auscultation no wheezing or crackles. Heart- regular rhythm; no murmur, no gallop. Abdomen- normal bowel sounds, soft, mild tenderness in RUQ and epigastric region Extremities- Trace pretibial edema, no erythema seen. Neuro- alert, oriented x 3; PERRL,; no facial palsy; no dysarthria; moves extremities. Skin- warm & dry Results & Data Results & Data Vital Signs (Past 12 Hours) Vital Signs Pulse Pulse Resp BP Pulse Ox Pulse Ox O2 Del Method 10/01/23 04:29 73 18 140/77 94 Room Air 10/01/23 02:52 94 10/01/23 02:18 77 10/01/23 01:19 85 22 147/79 H 95 Room Air 10/01/23 01:09 84 23 141/76 H 94 Room Air 10/01/23 00:59 84 20 141/76 H 93 Room Air 09/30/23 23:49 84 22 129/64 93 Room Air 09/30/23 22:17 92 H 24 143/74 H 96 Room Air 09/30/23 21:33 107 H 22 95 Room Air 09/30/23 21:29 120 H O2 Del Method 10/01/23 04:29 10/01/23 02:52 Room Air 10/01/23 02:18 10/01/23 01:19 10/01/23 01:09 10/01/23 00:59 09/30/23 23:49 09/30/23 22:17 09/30/23 21:33 09/30/23 21:29 Laboratory Results 10/01/23 10/01/23 10/01/23 Range/Units 07:58 04:45 03:46 WBC 11.35 H (4.8-10.8) K/ul RBC 4.32 (4.20-5.40) M/uL Hgb 13.6 (12.0-16.0) g/dl Hct 40.7 (37.0-47.0) % MCV 94.2 (80.0-100.0) fL MCH 31.5 (25.0-34.0) pg MCHC 33.4 (32.0-36.0) g/dL RDW Std Deviation 41.6 (36.4-46.3) fL RDW Coeff of Laura 11.9 (11.5-14.5) % Plt Count 226 (130-400) K/uL MPV 9.8 (9.4-12.4) fL Immature Gran % (Auto) 0.6 % Neut % (Auto) 88.9 % Lymph % (Auto) 7.3 % [place] % (Auto) 3.0 % Eos % (Auto) 0.0 % Baso % (Auto) 0.2 % Neut # (Auto) 10.09 H (1.40-6.50) K/uL Lymph # (Auto) 0.83 L (1.20-3.40) K/uL [place] # (Auto) 0.34 (0.11-0.59) K/uL Eos # (Auto) 0.00 (0.00-0.50) K/uL Baso # (Auto) 0.02 (0.00-0.20) K/uL Immature Gran # (Auto) 0.07 (0.01-0.20) K/uL Sodium 136 (136-145) mmol/L Potassium 4.3 (3.5-5.1) mmol/L Chloride 102 (98-107) mmol/L Carbon Dioxide 26 (21-32) mmol/L Anion Gap 8 (3-11) BUN 13 (6-23) mg/dl Creatinine 0.80 (0.6-1.2) mg/dl Est Cr Clr Drug Dosing 64.4 Est GFR ( Amer) 85.4 ml/min Est GFR (Non-Af Amer) 73.7 ml/min BUN/Creatinine Ratio 16.3 (10-20) Glucose 334 H* (70-99(Fasting)) mg/dl POC Glucose 246 H 341 H* (70-99) mg/dl Estimat Average Glucose 229 mg/dl Hemoglobin A1c 9.6 H (4.5-5.6) % Lactate (0.4-2.0) mmol/L Calcium 9.1 (8.6-10.3) mg/dl Magnesium 1.9 (1.7-2.4) mg/dl Total Bilirubin 6.2 H (0.2-1.0) mg/dl Direct Bilirubin 4.1 H (0-0.2) mg/dl AST 143 H (13-39) U/L ALT 201 H (7-52) U/L Alkaline Phosphatase 207 H (34-104) U/L Troponin I High Sens (0-14) pg/ml Total Protein 7.0 (6.0-8.3) gm/dl Albumin 3.6 (3.4-5.0) gm/dl Globulin (2.5-4.0) gm/dl Albumin/Globulin Ratio (0.9-2) Triglycerides 172 H (0-150) mg/dl Cholesterol 192 (0-200) mg/dl LDL Cholesterol, Calc 131 mg/dl VLDL Cholesterol, Calc 34 H (0-30) mg/dl HDL Cholesterol 27 mg/dl Cholesterol/HDL Ratio 7.1 H (0-5) Lipase (11-82) U/L Urine Color Urine Appearance (Clear) Urine pH (4.5-7.5) Ur Specific [place] (1.000-1.030) Urine Protein (Negative) Urine Glucose (UA) (Negative) Urine Ketones (Negative) Urine Blood (Negative) Urine Nitrite (Negative) Urine Bilirubin (Negative) Urine Urobilinogen (Negative) Ur Leukocyte Esterase (Negative) Urine WBC (Auto) (0-5) /hpf Urine RBC (Auto) (0-4) /hpf U Hyaline Cast (Auto) (0-5) /lpf U Epithel Cells (Auto) (0-5) /lpf Urine Bacteria (Auto) (Negative) 10/01/23 09/30/23 09/30/23 Range/Units 01:07 23:40 20:17 WBC (4.8-10.8) K/ul RBC (4.20-5.40) M/uL Hgb (12.0-16.0) g/dl Hct (37.0-47.0) % MCV (80.0-100.0) fL MCH (25.0-34.0) pg MCHC (32.0-36.0) g/dL RDW Std Deviation (36.4-46.3) fL RDW Coeff of Laura (11.5-14.5) % Plt Count (130-400) K/uL MPV (9.4-12.4) fL Immature Gran % (Auto) % Neut % (Auto) % Lymph % (Auto) % [place] % (Auto) % Eos % (Auto) % Baso % (Auto) % Neut # (Auto) (1.40-6.50) K/uL Lymph # (Auto) (1.20-3.40) K/uL [place] # (Auto) (0.11-0.59) K/uL Eos # (Auto) (0.00-0.50) K/uL Baso # (Auto) (0.00-0.20) K/uL Immature Gran # (Auto) (0.01-0.20) K/uL Sodium (136-145) mmol/L Potassium (3.5-5.1) mmol/L Chloride (98-107) mmol/L Carbon Dioxide (21-32) mmol/L Anion Gap (3-11) BUN (6-23) mg/dl Creatinine (0.6-1.2) mg/dl Est Cr Clr Drug Dosing Est GFR ( Amer) ml/min Est GFR (Non-Af Amer) ml/min BUN/Creatinine Ratio (10-20) Glucose (70-99(Fasting)) mg/dl POC Glucose 355 H* (70-99) mg/dl Estimat Average Glucose mg/dl Hemoglobin A1c (4.5-5.6) % Lactate 1.9 2.4 H* (0.4-2.0) mmol/L Calcium (8.6-10.3) mg/dl Magnesium (1.7-2.4) mg/dl Total Bilirubin (0.2-1.0) mg/dl Direct Bilirubin (0-0.2) mg/dl AST (13-39) U/L ALT (7-52) U/L Alkaline Phosphatase (34-104) U/L Troponin I High Sens (0-14) pg/ml Total Protein (6.0-8.3) gm/dl Albumin (3.4-5.0) gm/dl Globulin (2.5-4.0) gm/dl Albumin/Globulin Ratio (0.9-2) Triglycerides (0-150) mg/dl Cholesterol (0-200) mg/dl LDL Cholesterol, Calc mg/dl VLDL Cholesterol, Calc (0-30) mg/dl HDL Cholesterol mg/dl Cholesterol/HDL Ratio (0-5) Lipase (11-82) U/L Urine Color Urine Appearance (Clear) Urine pH (4.5-7.5) Ur Specific [place] (1.000-1.030) Urine Protein (Negative) Urine Glucose (UA) (Negative) Urine Ketones (Negative) Urine Blood (Negative) Urine Nitrite (Negative) Urine Bilirubin (Negative) Urine Urobilinogen (Negative) Ur Leukocyte Esterase (Negative) Urine WBC (Auto) (0-5) /hpf Urine RBC (Auto) (0-4) /hpf U Hyaline Cast (Auto) (0-5) /lpf U Epithel Cells (Auto) (0-5) /lpf Urine Bacteria (Auto) (Negative) 09/30/23 09/30/23 Range/Units 19:04 18:05 WBC 17.20 H (4.8-10.8) K/ul RBC 5.00 (4.20-5.40) M/uL Hgb 16.2 H (12.0-16.0) g/dl Hct 45.6 (37.0-47.0) % MCV 91.2 (80.0-100.0) fL MCH 32.4 (25.0-34.0) pg MCHC 35.5 (32.0-36.0) g/dL RDW Std Deviation 39.5 (36.4-46.3) fL RDW Coeff of Laura 11.8 (11.5-14.5) % Plt Count 270 (130-400) K/uL MPV 10.0 (9.4-12.4) fL Immature Gran % (Auto) 0.6 % Neut % (Auto) 91.9 % Lymph % (Auto) 2.1 % [place] % (Auto) 5.1 % Eos % (Auto) 0.0 % Baso % (Auto) 0.3 % Neut # (Auto) 15.80 H (1.40-6.50) K/uL Lymph # (Auto) 0.36 L (1.20-3.40) K/uL [place] # (Auto) 0.88 H (0.11-0.59) K/uL Eos # (Auto) 0.00 (0.00-0.50) K/uL Baso # (Auto) 0.05 (0.00-0.20) K/uL Immature Gran # (Auto) 0.11 (0.01-0.20) K/uL Sodium 135 L (136-145) mmol/L Potassium 4.2 (3.5-5.1) mmol/L Chloride 97 L (98-107) mmol/L Carbon Dioxide 24 (21-32) mmol/L Anion Gap 14 H (3-11) BUN 12 (6-23) mg/dl Creatinine 0.77 (0.6-1.2) mg/dl Est Cr Clr Drug Dosing Not Reportable Est GFR ( Amer) 89.4 ml/min Est GFR (Non-Af Amer) 77.1 ml/min BUN/Creatinine Ratio 15.6 (10-20) Glucose 345 H* (70-99(Fasting)) mg/dl POC Glucose (70-99) mg/dl Estimat Average Glucose mg/dl Hemoglobin A1c (4.5-5.6) % Lactate (0.4-2.0) mmol/L Calcium 10.2 (8.6-10.3) mg/dl Magnesium (1.7-2.4) mg/dl Total Bilirubin 4.8 H (0.2-1.0) mg/dl Direct Bilirubin (0-0.2) mg/dl AST 166 H (13-39) U/L ALT 243 H (7-52) U/L Alkaline Phosphatase 255 H (34-104) U/L Troponin I High Sens 5.3 (0-14) pg/ml Total Protein 8.5 H (6.0-8.3) gm/dl Albumin 4.3 (3.4-5.0) gm/dl Globulin 4.2 H (2.5-4.0) gm/dl Albumin/Globulin Ratio 1.0 (0.9-2) Triglycerides (0-150) mg/dl Cholesterol (0-200) mg/dl LDL Cholesterol, Calc mg/dl VLDL Cholesterol, Calc (0-30) mg/dl HDL Cholesterol mg/dl Cholesterol/HDL Ratio (0-5) Lipase 8093 H (11-82) U/L Urine Color Dark Yellow Urine Appearance Clear (Clear) Urine pH 5.0 (4.5-7.5) Ur Specific [place] 1.029 (1.000-1.030) Urine Protein Trace H (Negative) Urine Glucose (UA) 3+ H (Negative) Urine Ketones 2+ H (Negative) Urine Blood Negative (Negative) Urine Nitrite Negative (Negative) Urine Bilirubin 1+ H (Negative) Urine Urobilinogen Negative (Negative) Ur Leukocyte Esterase Negative (Negative) Urine WBC (Auto) 5-10 H (0-5) /hpf Urine RBC (Auto) 0-4 (0-4) /hpf U Hyaline Cast (Auto) 1-5 (0-5) /lpf U Epithel Cells (Auto) >30 H (0-5) /lpf Urine Bacteria (Auto) 1+ H (Negative) Medications Administered Current Inpatient Medications Dextrose (Dextrose 50% 50 Ml Syringe) 25 - 50 ml IV UD PRN; Protocol PRN Reason: Hypoglycemia Protocol Stop: 10/31/23 01:00 Glucagon (Glucagon For Inj 1 Mg Vial) 1 mg SQ UD PRN; Protocol PRN Reason: Hypoglycemia Protocol Stop: 10/31/23 01:00 Glucose (Glucose 10 Tab/Tube) 4 - 8 tab PO UD PRN; Protocol PRN Reason: Hypoglycemia Treatment Stop: 10/31/23 01:00 Glucose (Glucose 40% Gel 15 Gm Tube) 15 - 30 gm PO UD PRN; Protocol PRN Reason: Hypoglycemia Protocol Stop: 10/31/23 01:00 Hydromorphone HCl (Hydromorphone Inj 0.5 Mg/0.5 Ml Syr) 0.5 mg IV Q3H PRN PRN Reason: Pain Stop: 10/15/23 01:00 Lactated Ringer's (Lr) 1,000 mls @ 200 mls/hr IV .Q5H [facility] Stop: 10/31/23 01:00 Last Infusion: 10/01/23 04:05 Dose: 0 mls/hr Piperacillin Sod/Tazobactam (Sod 4.5 gm/ Dextrose) 100 mls @ 25 mls/hr IV Q8H [facility]; Protocol Stop: 10/11/23 03:59 Last Admin: 10/01/23 03:48 Dose: 25 mls/hr Insulin Aspart (Insulin Aspart Per Unit Charge) 0 units SC Q6 [facility] Stop: 10/31/23 03:29 Last Admin: 10/01/23 03:57 Dose: 11 units Insulin Glargine (Lantus Per Unit Charge) 18 units SC 0800 [facility] Stop: 10/01/23 10:00 Miscellaneous (Carbohydrates For Hypoglycemia ) 15 - 30 gm PO UD PRN PRN Reason: Hypoglycemia Protocol Stop: 10/31/23 01:00 Miscellaneous Information (Pharmacy Glycemic Mgmt Consult) 1 each N/A UD PRN PRN Reason: Consult Stop: 10/31/23 01:00 Nitroglycerin (Nitroglycerin Sl 0.4 Mg/Tab Tab) 0.4 mg SL Q5M PRN PRN Reason: Chest Pain Stop: 10/31/23 01:00 Ondansetron HCl (Ondansetron Inj 2 Mg/Ml 2 Ml Vial) 4 mg IV Q6H PRN PRN Reason: Nausea Stop: 10/31/23 01:00
--- NOTE | 2023-10-01 08:30 | Gastrointestinal Consultation ---
Date of Consultation October 01, 2023 Assessment & Plan (1) Transaminitis: Plan 72 year old female presenting with RUQ abd pain, nausea admitted w/ elevated lipase, elevated LFTs and imaging with gallstones, concerning for CBD obstruction NPO Plan EUS/ERCP Antiemetics PRN Analgesia PRN Treat the pancreatitis w/ bowel rest, LR and antiemetics We appreciate assistance in the management of any serological abnormality and corrections to include: hemoglobin >7, INR <2, platelets >50,000, potassium levels >3.5 but <5.3, and sodium levels within 5 points of the reference range prior to endoscopic evaluation. Thank you for allowing us to participate in the care of this patient. Please call with any acute changes, questions or concerns. Please see addendum below with additional recommendation from my supervising physician. Supervising Physician Co-Signing Physician Notes I performed a history and physical examination of the patient today, including specifically on physical exam - soft abdomen. I have discussed the patient's management with the advanced practitioner. Please refer to the nurse practitioner's note for the documented findings and plan of care. Likely has choledocholithiasis. Plan for EUS/ERCP today History of Present Illness Reason for Consultation: ERCP Requesting Physician: Nancy Attending Physician: Tim Cruz MD History of Present Illness 72 year old female who presents with epigastric abd pain, nausea - GI asked to evaluate for elevated LFTs in the setting of suspected gallstone pancreatitis. Pt was seen and evaluated, chart reviewed. Notes she is slightly more comfortable today. No vomiting. No fever, chills, CP, SOB. Denies ETOH Denies blood thinners WBC 17 --> 11 Tbili 6.2 AST 143 ALT 201 ALKP 207 Lipase 8093 MRI 2022: Bile ducts: Unremarkable. Normal size of the common bile duct with no evidence of bile duct stones. There is smooth tapering of the common bile duct at the sphincter of [place]. Gallbladder: Multiple tiny gallstones along the dependent portion of the gallbladder neck. Liver: Unremarkable. Pancreas: Unremarkable. No ductal dilation. ABD US 2022: Cholelithiasis. No gallbladder wall thickening. Negative Carson sign. CTAP 2022: . No hydronephrosis or delayed nephrogram. Hepatic steatosis. Cholelithiasis. Allergies Allergy/AdvReac Type Severity Reaction Status Date / Time aspirin Allergy ringing Verified 09/30/23 22:08 ears,shakes,diarrhea,upset stomach Tetanus Vaccines and Toxoid Allergy convulsions Verified 09/30/23 22:09 acesulfame AdvReac Migraine Verified 10/01/23 09:59 aspartame AdvReac Migraine Verified 10/01/23 09:59 coconut AdvReac Diarrhea Verified 09/30/23 22:13 diazepam [From Valium] AdvReac doesn't Verified 09/30/23 22:12 work Neotame AdvReac Migraine Verified 10/01/23 09:59 procaine [From Novocain] AdvReac lucero't Verified 09/30/23 22:12 work saccharin AdvReac Migraine Verified 10/01/23 09:59 sucralose AdvReac Migraine Verified 10/01/23 09:59 Home Medications Medication Instructions Recorded Confirmed Type No Known Home Medications 09/30/23 09/30/23 History Patient History Social History Smoking Status: Never smoker Hx Alcohol Use: Yes Hx Substance Use: No Preferred Language: Urdu Beliefs That Will Affect Care: None Current Living Situation: Alone Other Information That Helps Us Care for You: No Feels Safe at Home: Yes Safety Concerns: Feels Safe At This Time Assistive Devices: Glasses Review of Systems Review of Systems: All systems reviewed & are unremarkable except as noted in HPI & below Physical Exam Constitutional: WD/WN, vitals as above Respiratory: normal respiratory effort Cardiovascular: Rate/Rhythm: regular rate Gastrointestinal (Abdomen): Percussion/Palpation: + abdomen tender and abdomen soft; no guarding, abdomen not rigid and no ascites Skin: no rashes, warm and dry Results & Data Vital Signs (Past 12 Hours) Vital Signs Pulse Pulse Resp BP Pulse Ox Pulse Ox O2 Del Method 10/01/23 08:24 110 H 10/01/23 04:29 73 18 140/77 94 Room Air 10/01/23 02:52 94 10/01/23 02:18 77 10/01/23 01:19 85 22 147/79 H 95 Room Air 10/01/23 01:09 84 23 141/76 H 94 Room Air 10/01/23 00:59 84 20 141/76 H 93 Room Air 09/30/23 23:49 84 22 129/64 93 Room Air 09/30/23 22:17 92 H 24 143/74 H 96 Room Air 09/30/23 21:33 107 H 22 95 Room Air 09/30/23 21:29 120 H O2 Del Method 10/01/23 08:24 10/01/23 04:29 10/01/23 02:52 Room Air 10/01/23 02:18 10/01/23 01:19 10/01/23 01:09 10/01/23 00:59 09/30/23 23:49 09/30/23 22:17 09/30/23 21:33 09/30/23 21:29 Laboratory Results 10/01/23 10/01/23 10/01/23 Range/Units 07:58 04:45 03:46 WBC 11.35 H (4.8-10.8) K/ul RBC 4.32 (4.20-5.40) M/uL Hgb 13.6 (12.0-16.0) g/dl Hct 40.7 (37.0-47.0) % MCV 94.2 (80.0-100.0) fL MCH 31.5 (25.0-34.0) pg MCHC 33.4 (32.0-36.0) g/dL RDW Std Deviation 41.6 (36.4-46.3) fL RDW Coeff of Laura 11.9 (11.5-14.5) % Plt Count 226 (130-400) K/uL MPV 9.8 (9.4-12.4) fL Immature Gran % (Auto) 0.6 % Neut % (Auto) 88.9 % Lymph % (Auto) 7.3 % [place] % (Auto) 3.0 % Eos % (Auto) 0.0 % Baso % (Auto) 0.2 % Neut # (Auto) 10.09 H (1.40-6.50) K/uL Lymph # (Auto) 0.83 L (1.20-3.40) K/uL [place] # (Auto) 0.34 (0.11-0.59) K/uL Eos # (Auto) 0.00 (0.00-0.50) K/uL Baso # (Auto) 0.02 (0.00-0.20) K/uL Immature Gran # (Auto) 0.07 (0.01-0.20) K/uL Sodium 136 (136-145) mmol/L Potassium 4.3 (3.5-5.1) mmol/L Chloride 102 (98-107) mmol/L Carbon Dioxide 26 (21-32) mmol/L Anion Gap 8 (3-11) BUN 13 (6-23) mg/dl Creatinine 0.80 (0.6-1.2) mg/dl Est Cr Clr Drug Dosing 64.4 Est GFR ( Amer) 85.4 ml/min Est GFR (Non-Af Amer) 73.7 ml/min BUN/Creatinine Ratio 16.3 (10-20) Glucose 334 H* (70-99(Fasting)) mg/dl POC Glucose 246 H 341 H* (70-99) mg/dl Estimat Average Glucose 229 mg/dl Hemoglobin A1c 9.6 H (4.5-5.6) % Lactate (0.4-2.0) mmol/L Calcium 9.1 (8.6-10.3) mg/dl Magnesium 1.9 (1.7-2.4) mg/dl Total Bilirubin 6.2 H (0.2-1.0) mg/dl Direct Bilirubin 4.1 H (0-0.2) mg/dl AST 143 H (13-39) U/L ALT 201 H (7-52) U/L Alkaline Phosphatase 207 H (34-104) U/L Troponin I High Sens (0-14) pg/ml Total Protein 7.0 (6.0-8.3) gm/dl Albumin 3.6 (3.4-5.0) gm/dl Globulin (2.5-4.0) gm/dl Albumin/Globulin Ratio (0.9-2) Triglycerides 172 H (0-150) mg/dl Cholesterol 192 (0-200) mg/dl LDL Cholesterol, Calc 131 mg/dl VLDL Cholesterol, Calc 34 H (0-30) mg/dl HDL Cholesterol 27 mg/dl Cholesterol/HDL Ratio 7.1 H (0-5) Lipase (11-82) U/L Urine Color Urine Appearance (Clear) Urine pH (4.5-7.5) Ur Specific [place] (1.000-1.030) Urine Protein (Negative) Urine Glucose (UA) (Negative) Urine Ketones (Negative) Urine Blood (Negative) Urine Nitrite (Negative) Urine Bilirubin (Negative) Urine Urobilinogen (Negative) Ur Leukocyte Esterase (Negative) Urine WBC (Auto) (0-5) /hpf Urine RBC (Auto) (0-4) /hpf U Hyaline Cast (Auto) (0-5) /lpf U Epithel Cells (Auto) (0-5) /lpf Urine Bacteria (Auto) (Negative) 10/01/23 09/30/23 09/30/23 Range/Units 01:07 23:40 20:17 WBC (4.8-10.8) K/ul RBC (4.20-5.40) M/uL Hgb (12.0-16.0) g/dl Hct (37.0-47.0) % MCV (80.0-100.0) fL MCH (25.0-34.0) pg MCHC (32.0-36.0) g/dL RDW Std Deviation (36.4-46.3) fL RDW Coeff of Laura (11.5-14.5) % Plt Count (130-400) K/uL MPV (9.4-12.4) fL Immature Gran % (Auto) % Neut % (Auto) % Lymph % (Auto) % [place] % (Auto) % Eos % (Auto) % Baso % (Auto) % Neut # (Auto) (1.40-6.50) K/uL Lymph # (Auto) (1.20-3.40) K/uL [place] # (Auto) (0.11-0.59) K/uL Eos # (Auto) (0.00-0.50) K/uL Baso # (Auto) (0.00-0.20) K/uL Immature Gran # (Auto) (0.01-0.20) K/uL Sodium (136-145) mmol/L Potassium (3.5-5.1) mmol/L Chloride (98-107) mmol/L Carbon Dioxide (21-32) mmol/L Anion Gap (3-11) BUN (6-23) mg/dl Creatinine (0.6-1.2) mg/dl Est Cr Clr Drug Dosing Est GFR ( Amer) ml/min Est GFR (Non-Af Amer) ml/min BUN/Creatinine Ratio (10-20) Glucose (70-99(Fasting)) mg/dl POC Glucose 355 H* (70-99) mg/dl Estimat Average Glucose mg/dl Hemoglobin A1c (4.5-5.6) % Lactate 1.9 2.4 H* (0.4-2.0) mmol/L Calcium (8.6-10.3) mg/dl Magnesium (1.7-2.4) mg/dl Total Bilirubin (0.2-1.0) mg/dl Direct Bilirubin (0-0.2) mg/dl AST (13-39) U/L ALT (7-52) U/L Alkaline Phosphatase (34-104) U/L Troponin I High Sens (0-14) pg/ml Total Protein (6.0-8.3) gm/dl Albumin (3.4-5.0) gm/dl Globulin (2.5-4.0) gm/dl Albumin/Globulin Ratio (0.9-2) Triglycerides (0-150) mg/dl Cholesterol (0-200) mg/dl LDL Cholesterol, Calc mg/dl VLDL Cholesterol, Calc (0-30) mg/dl HDL Cholesterol mg/dl Cholesterol/HDL Ratio (0-5) Lipase (11-82) U/L Urine Color Urine Appearance (Clear) Urine pH (4.5-7.5) Ur Specific [place] (1.000-1.030) Urine Protein (Negative) Urine Glucose (UA) (Negative) Urine Ketones (Negative) Urine Blood (Negative) Urine Nitrite (Negative) Urine Bilirubin (Negative) Urine Urobilinogen (Negative) Ur Leukocyte Esterase (Negative) Urine WBC (Auto) (0-5) /hpf Urine RBC (Auto) (0-4) /hpf U Hyaline Cast (Auto) (0-5) /lpf U Epithel Cells (Auto) (0-5) /lpf Urine Bacteria (Auto) (Negative) 09/30/23 09/30/23 Range/Units 19:04 18:05 WBC 17.20 H (4.8-10.8) K/ul RBC 5.00 (4.20-5.40) M/uL Hgb 16.2 H (12.0-16.0) g/dl Hct 45.6 (37.0-47.0) % MCV 91.2 (80.0-100.0) fL MCH 32.4 (25.0-34.0) pg MCHC 35.5 (32.0-36.0) g/dL RDW Std Deviation 39.5 (36.4-46.3) fL RDW Coeff of Laura 11.8 (11.5-14.5) % Plt Count 270 (130-400) K/uL MPV 10.0 (9.4-12.4) fL Immature Gran % (Auto) 0.6 % Neut % (Auto) 91.9 % Lymph % (Auto) 2.1 % [place] % (Auto) 5.1 % Eos % (Auto) 0.0 % Baso % (Auto) 0.3 % Neut # (Auto) 15.80 H (1.40-6.50) K/uL Lymph # (Auto) 0.36 L (1.20-3.40) K/uL [place] # (Auto) 0.88 H (0.11-0.59) K/uL Eos # (Auto) 0.00 (0.00-0.50) K/uL Baso # (Auto) 0.05 (0.00-0.20) K/uL Immature Gran # (Auto) 0.11 (0.01-0.20) K/uL Sodium 135 L (136-145) mmol/L Potassium 4.2 (3.5-5.1) mmol/L Chloride 97 L (98-107) mmol/L Carbon Dioxide 24 (21-32) mmol/L Anion Gap 14 H (3-11) BUN 12 (6-23) mg/dl Creatinine 0.77 (0.6-1.2) mg/dl Est Cr Clr Drug Dosing Not Reportable Est GFR ( Amer) 89.4 ml/min Est GFR (Non-Af Amer) 77.1 ml/min BUN/Creatinine Ratio 15.6 (10-20) Glucose 345 H* (70-99(Fasting)) mg/dl POC Glucose (70-99) mg/dl Estimat Average Glucose mg/dl Hemoglobin A1c (4.5-5.6) % Lactate (0.4-2.0) mmol/L Calcium 10.2 (8.6-10.3) mg/dl Magnesium (1.7-2.4) mg/dl Total Bilirubin 4.8 H (0.2-1.0) mg/dl Direct Bilirubin (0-0.2) mg/dl AST 166 H (13-39) U/L ALT 243 H (7-52) U/L Alkaline Phosphatase 255 H (34-104) U/L Troponin I High Sens 5.3 (0-14) pg/ml Total Protein 8.5 H (6.0-8.3) gm/dl Albumin 4.3 (3.4-5.0) gm/dl Globulin 4.2 H (2.5-4.0) gm/dl Albumin/Globulin Ratio 1.0 (0.9-2) Triglycerides (0-150) mg/dl Cholesterol (0-200) mg/dl LDL Cholesterol, Calc mg/dl VLDL Cholesterol, Calc (0-30) mg/dl HDL Cholesterol mg/dl Cholesterol/HDL Ratio (0-5) Lipase 8093 H (11-82) U/L Urine Color Dark Yellow Urine Appearance Clear (Clear) Urine pH 5.0 (4.5-7.5) Ur Specific [place] 1.029 (1.000-1.030) Urine Protein Trace H (Negative) Urine Glucose (UA) 3+ H (Negative) Urine Ketones 2+ H (Negative) Urine Blood Negative (Negative) Urine Nitrite Negative (Negative) Urine Bilirubin 1+ H (Negative) Urine Urobilinogen Negative (Negative) Ur Leukocyte Esterase Negative (Negative) Urine WBC (Auto) 5-10 H (0-5) /hpf Urine RBC (Auto) 0-4 (0-4) /hpf U Hyaline Cast (Auto) 1-5 (0-5) /lpf U Epithel Cells (Auto) >30 H (0-5) /lpf Urine Bacteria (Auto) 1+ H (Negative)
[2023-10-01] MEDS ORDERED: LACTATED RINGER'S 1,000 ML IV SCH (10:15)
--- NOTE | 2023-10-01 10:31 | Surgery Progress Note ---
Date of Service October 01, 2023 Assessment & Plan (1) Acute gallstone pancreatitis: Plan: patient up walking in ER room reports epigastric abdominal pain Patient scheduled for a EUS/ERCP this AM Wishes to wait a week after GI procedure to proceed with a Lap [place] so she can have some family at her house, Will continue to follow Admission and Anticipated Discharge Date Admission Date: September 30, 2023 Subjective patient up walking in ER room reports epigastric abdominal pain Review of Systems Constitutional: no fever and no chills Respiratory: no dyspnea Cardiovascular: no chest pain Gastrointestinal: + abdominal pain Genitourinary: no problem reported Musculoskeletal: no muscle weakness Integumentary: no problem reported Psychiatric: no problem reported Physical Exam Physical Exam: alert oriented pleasant Constitutional: well developed, well nourished, cooperative and comfortable; no acute distress Eyes: PERRL, conjunctivae normal, anicteric sclerae ENMT: external ear and nose normal, oropharynx normal Respiratory: normal respiratory effort and able to speak in complete sentences; no respiratory distress Cardiovascular: Rate/Rhythm: + tachycardic (110) Gastrointestinal (Abdomen): Percussion/Palpation: + abdomen tender Musculoskeletal: no cyanosis or clubbing, extremities motor strength 5/5 Psychiatric: A+Ox3, euthymic affect Results & Data Vital Signs (Past 12 Hours) Vital Signs Pulse Pulse Resp BP Pulse Ox Pulse Ox O2 Del Method 10/01/23 08:24 110 H 10/01/23 04:29 73 18 140/77 94 Room Air 10/01/23 02:52 94 10/01/23 02:18 77 10/01/23 01:19 85 22 147/79 H 95 Room Air 10/01/23 01:09 84 23 141/76 H 94 Room Air 10/01/23 00:59 84 20 141/76 H 93 Room Air 09/30/23 23:49 84 22 129/64 93 Room Air O2 Del Method 10/01/23 08:24 10/01/23 04:29 10/01/23 02:52 Room Air 10/01/23 02:18 10/01/23 01:19 10/01/23 01:09 10/01/23 00:59 09/30/23 23:49 PG Care Time/CCT Total # of Minutes Spent Total Time Spent with Patient: Total time spent is greater than 50% in coordination of care (as documented) at patient's floor/unit and/or counseling patient: Coding Diagnoses Acute gallstone pancreatitis K85.10
[2023-10-01] MEDS ORDERED: PROPOFOL IV EMULSION 10 MG/ML 20 ML VIAL IV ONE ×2 (10:33→10:34)
[2023-10-01] MEDS ORDERED: LIDOCAINE 2% 2 ML VIAL/AMP(20MG/ML) INFIL ONE (10:33)
[2023-10-01] MEDS ORDERED: MIDAZOLAM HCL 1 MG/ML 2ML VIAL ONE (10:34)
[2023-10-01] MEDS ORDERED: fentaNYL citrate PF 100 MCG/2 ML VIAL ONE ×2 (10:34→11:38)
--- NOTE | 2023-10-01 10:47 | Anesthesiology Consultation ---
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 initiated History Surgery Operation Date: 10/01/23 08:50 Proposed Procedures p Endoscopic Ultrasonography Upper - Juan Craig MD s Endoscopic Retrograde Cholangiopancreatogram - Juan Craig MD Height/Weight Height: 5 ft 6 in Weight: 71.5 kg Allergies Allergy/AdvReac Type Severity Reaction Status Date / Time aspirin Allergy ringing Verified 09/30/23 22:08 ears,shakes,diarrhea,upset stomach Tetanus Vaccines and Toxoid Allergy convulsions Verified 09/30/23 22:09 acesulfame AdvReac Migraine Verified 10/01/23 09:59 aspartame AdvReac Migraine Verified 10/01/23 09:59 coconut AdvReac Diarrhea Verified 09/30/23 22:13 diazepam [From Valium] AdvReac doesn't Verified 09/30/23 22:12 work Neotame AdvReac Migraine Verified 10/01/23 09:59 procaine [From Novocain] AdvReac lucero't Verified 09/30/23 22:12 work saccharin AdvReac Migraine Verified 10/01/23 09:59 sucralose AdvReac Migraine Verified 10/01/23 09:59 Medications Home Medications Medication Instructions Recorded Confirmed Last Taken No Known Home Medications 09/30/23 09/30/23 Unknown Active Medications Generic Name Dose Route Start Last Admin Trade Name Freq PRN Reason Stop Dose Admin Lactated Ringer's 1,000 mls @ 200 mls/hr 10/01/23 01:01 10/01/23 08:59 Lr IV 10/31/23 01:00 200 mls/hr .Q5H BJORN Administration Piperacillin Sod/Tazobactam 100 mls @ 25 mls/hr 10/01/23 04:00 10/01/23 03:48 Sod 4.5 gm/ Dextrose IV 10/11/23 03:59 25 mls/hr Q8H BJORN Administration Protocol Lactated Ringer's 1,000 mls @ 15 mls/hr 10/01/23 10:15 10/01/23 10:34 Lr IV 10/31/23 10:14 15 mls/hr .Q24H BJORN Administration Insulin Aspart 0 units 10/01/23 03:30 10/01/23 09:00 Insulin Aspart Per Unit Charge SC 10/31/23 03:29 8 units Q6 BJORN Administration NPO Date Last Intake of Fluids: 09/30/23 Time Last Intake of Fluids: 08:00 Date Last Intake of Solids: 09/30/23 Time Last Intake of Solids: 08:00 Social History Smoking Status: Never smoker Hx Alcohol Use: Yes alcohol intake frequency: a few times a month Hx Substance Use: No Physical Exam Vital Signs Last Vital Signs Temp 98.8 F 10/01/23 10:28 Pulse 117 H 10/01/23 10:28 Resp 20 10/01/23 10:28 BP 168/101 H 10/01/23 10:28 Pulse Ox 94 10/01/23 10:28 O2 Del Method Room Air 10/01/23 10:28 Testing Laboratory Results 10/01/23 04:45 10/01/23 04:45 Hemoglobin A1c 9.6 % (4.5-5.6) H 10/01/23 04:45 Urine Color Dark Yellow 09/30/23 19:04 Urine Appearance Clear (Clear) 09/30/23 19:04 Urine pH 5.0 (4.5-7.5) 09/30/23 19:04 Ur Specific [place] 1.029 (1.000-1.030) 09/30/23 19:04 Urine Protein Trace (Negative) H 09/30/23 19:04 Urine Glucose (UA) 3+ (Negative) H 09/30/23 19:04 Urine Ketones 2+ (Negative) H 09/30/23 19:04 Urine Nitrite Negative (Negative) 09/30/23 19:04 Ur Leukocyte Esterase Negative (Negative) 09/30/23 19:04 Urine WBC (Auto) 5-10 /hpf (0-5) H 09/30/23 19:04 Urine RBC (Auto) 0-4 /hpf (0-4) 09/30/23 19:04 U Hyaline Cast (Auto) 1-5 /lpf (0-5) 09/30/23 19:04 U Epithel Cells (Auto) >30 /lpf (0-5) H 09/30/23 19:04 Urine Bacteria (Auto) 1+ (Negative) H 09/30/23 19:04 10/01/23 10/01/23 10/01/23 10:26 07:58 03:46 POC Glucose 183 H 246 H 341 H* 10/01/23 01:07 POC Glucose 355 H* Electrocardiogram Date: 09/30/23 Sinus tachycardia with Premature atrial complexes, rate 122 bpm Possible Left atrial enlargement Incomplete right bundle branch block T wave abnormality, consider anterior ischemia Abnormal ECG No previous ECGs available
[2023-10-01] MEDS ORDERED: ePHEDrine sulfate 50 MG/ML AMP IV PRN (10:56)
[2023-10-01] MEDS ORDERED: ATROPINE SULFATE 0.1 MG/ML 10ML SYR IV PRN (10:56)
--- NOTE | 2023-10-01 11:20 | Surgery Progress Note ---
Date of Service October 01, 2023 Assessment & Plan (1) Choledocholithiasis: Plan: suspected choledocholithiasis despite neg MRCP, gallstone pancreatitis. ERCP today. Doesn't want cholecystectomy until she can coordinate help ERCP today close interval follow up for outpatient robotic cholecystectomy surgery will follow, call w/ questions or concerns (2) Acute gallstone pancreatitis: (3) Cholelithiasis: Admission and Anticipated Discharge Date Admission Date: September 30, 2023 Subjective choledocholithiasis and gallstone pancreatitis, still with some epigastric pain but improving. Physical Exam Constitutional: WD/WN, vitals as above Gastrointestinal (Abdomen): Percussion/Palpation: + abdomen tender (mild epigastric ttp); no guarding and abdomen not rigid Results & Data Vital Signs (Past 12 Hours) Vital Signs Temp Pulse Pulse Resp BP Pulse Ox Pulse Ox 10/01/23 10:28 37.1 C 117 H 20 168/101 H 94 10/01/23 08:24 110 H 10/01/23 04:29 73 18 140/77 94 10/01/23 02:52 94 10/01/23 02:18 77 10/01/23 01:19 85 22 147/79 H 95 10/01/23 01:09 84 23 141/76 H 94 10/01/23 00:59 84 20 141/76 H 93 09/30/23 23:49 84 22 129/64 93 O2 Del Method O2 Del Method 10/01/23 10:28 Room Air 10/01/23 08:24 10/01/23 04:29 Room Air 10/01/23 02:52 Room Air 10/01/23 02:18 10/01/23 01:19 Room Air 10/01/23 01:09 Room Air 10/01/23 00:59 Room Air 09/30/23 23:49 Room Air Laboratory Results Laboratory Results - last 24 hr 09/30/23 09/30/23 09/30/23 18:05 19:04 20:17 WBC 17.20 H RBC 5.00 Hgb 16.2 H Hct 45.6 MCV 91.2 MCH 32.4 MCHC 35.5 RDW Std Deviation 39.5 RDW Coeff of [place] 11.8 Plt Count 270 MPV 10.0 Immature Gran % (Auto) 0.6 Neut % (Auto) 91.9 Lymph % (Auto) 2.1 [place] % (Auto) 5.1 Eos % (Auto) 0.0 Baso % (Auto) 0.3 Neut # (Auto) 15.80 H Lymph # (Auto) 0.36 L [place] # (Auto) 0.88 H Eos # (Auto) 0.00 Baso # (Auto) 0.05 Immature Gran # (Auto) 0.11 Sodium 135 L Potassium 4.2 Chloride 97 L Carbon Dioxide 24 Anion Gap 14 H BUN 12 Creatinine 0.77 Est Cr Clr Drug Dosing Not Reportable Est GFR ( Amer) 89.4 Est GFR (Non-Af Amer) 77.1 BUN/Creatinine Ratio 15.6 Glucose 345 H* POC Glucose Estimat Average Glucose Hemoglobin A1c Lactate 2.4 H* Calcium 10.2 Magnesium Total Bilirubin 4.8 H Direct Bilirubin AST 166 H ALT 243 H Alkaline Phosphatase 255 H Troponin I High Sens 5.3 Total Protein 8.5 H Albumin 4.3 Globulin 4.2 H Albumin/Globulin Ratio 1.0 Triglycerides Cholesterol LDL Cholesterol, Calc VLDL Cholesterol, Calc HDL Cholesterol Cholesterol/HDL Ratio Lipase 8093 H Urine Color Dark Yellow Urine Appearance Clear Urine pH 5.0 Ur Specific [place] 1.029 Urine Protein Trace H Urine Glucose (UA) 3+ H Urine Ketones 2+ H Urine Blood Negative Urine Nitrite Negative Urine Bilirubin 1+ H Urine Urobilinogen Negative Ur Leukocyte Esterase Negative Urine WBC (Auto) 5-10 H Urine RBC (Auto) 0-4 U Hyaline Cast (Auto) 1-5 U Epithel Cells (Auto) >30 H Urine Bacteria (Auto) 1+ H 09/30/23 10/01/23 10/01/23 23:40 01:07 03:46 WBC RBC Hgb Hct MCV MCH MCHC RDW Std Deviation RDW Coeff of [place] Plt Count MPV Immature Gran % (Auto) Neut % (Auto) Lymph % (Auto) [place] % (Auto) Eos % (Auto) Baso % (Auto) Neut # (Auto) Lymph # (Auto) [place] # (Auto) Eos # (Auto) Baso # (Auto) Immature Gran # (Auto) Sodium Potassium Chloride Carbon Dioxide Anion Gap BUN Creatinine Est Cr Clr Drug Dosing Est GFR ( Amer) Est GFR (Non-Af Amer) BUN/Creatinine Ratio Glucose POC Glucose 355 H* 341 H* Estimat Average Glucose Hemoglobin A1c Lactate 1.9 Calcium Magnesium Total Bilirubin Direct Bilirubin AST ALT Alkaline Phosphatase Troponin I High Sens Total Protein Albumin Globulin Albumin/Globulin Ratio Triglycerides Cholesterol LDL Cholesterol, Calc VLDL Cholesterol, Calc HDL Cholesterol Cholesterol/HDL Ratio Lipase Urine Color Urine Appearance Urine pH Ur Specific [place] Urine Protein Urine Glucose (UA) Urine Ketones Urine Blood Urine Nitrite Urine Bilirubin Urine Urobilinogen Ur Leukocyte Esterase Urine WBC (Auto) Urine RBC (Auto) U Hyaline Cast (Auto) U Epithel Cells (Auto) Urine Bacteria (Auto) 10/01/23 10/01/23 10/01/23 04:45 07:58 10:26 WBC 11.35 H RBC 4.32 Hgb 13.6 Hct 40.7 MCV 94.2 MCH 31.5 MCHC 33.4 RDW Std Deviation 41.6 RDW Coeff of [place] 11.9 Plt Count 226 MPV 9.8 Immature Gran % (Auto) 0.6 Neut % (Auto) 88.9 Lymph % (Auto) 7.3 [place] % (Auto) 3.0 Eos % (Auto) 0.0 Baso % (Auto) 0.2 Neut # (Auto) 10.09 H Lymph # (Auto) 0.83 L [place] # (Auto) 0.34 Eos # (Auto) 0.00 Baso # (Auto) 0.02 Immature Gran # (Auto) 0.07 Sodium 136 Potassium 4.3 Chloride 102 Carbon Dioxide 26 Anion Gap 8 BUN 13 Creatinine 0.80 Est Cr Clr Drug Dosing 64.4 Est GFR ( Amer) 85.4 Est GFR (Non-Af Amer) 73.7 BUN/Creatinine Ratio 16.3 Glucose 334 H* POC Glucose 246 H 183 H Estimat Average Glucose 229 Hemoglobin A1c 9.6 H Lactate Calcium 9.1 Magnesium 1.9 Total Bilirubin 6.2 H Direct Bilirubin 4.1 H AST 143 H ALT 201 H Alkaline Phosphatase 207 H Troponin I High Sens Total Protein 7.0 Albumin 3.6 Globulin Albumin/Globulin Ratio Triglycerides 172 H Cholesterol 192 LDL Cholesterol, Calc 131 VLDL Cholesterol, Calc 34 H HDL Cholesterol 27 Cholesterol/HDL Ratio 7.1 H Lipase Urine Color Urine Appearance Urine pH Ur Specific [place] Urine Protein Urine Glucose (UA) Urine Ketones Urine Blood Urine Nitrite Urine Bilirubin Urine Urobilinogen Ur Leukocyte Esterase Urine WBC (Auto) Urine RBC (Auto) U Hyaline Cast (Auto) U Epithel Cells (Auto) Urine Bacteria (Auto) Diagnostic Findings mrcp negative for choledocholithiasis, but CT reviewed and showed CBD ductal dilatation PG Care Time/CCT Total # of Minutes Spent Total Time Spent with Patient: Total time spent is greater than 50% in coordination of care (as documented) at patient's floor/unit and/or counseling patient: Coding Level of Care Code 03938 SUB INP/OBS CARE 2/35MIN Diagnoses Choledocholithiasis K80.50 Acute gallstone pancreatitis K85.10 Cholelithiasis K80.20
[2023-10-01] MEDS ORDERED: ROCURONIUM BROMIDE 10 MG/ML 5 ML VIAL IV ONE (11:37)
--- NOTE | 2023-10-01 11:52 | Operative Report ---
Post Operative Report Pre & Post Diagnosis Operation Date: 10/01/23 08:50 Pre-Op Diagnosis: ABDOMINAL PAIN,CHOLECYSTITIS,ELEVATED LFT,SEPSIS Post-Op Diagnosis: EGD: esophagitis EUS: Gallstone ERCP: Gallstone I identified the patient and participated in the time-out.: Yes Procedure Operation Date: 10/01/23 08:50 Actual Procedures p Esophagogastroduodenoscopy - Juan Craig MD s Endoscopic Ultrasonography Lower - Juan Craig MD Surgeon Juan Craig MD Park Guide None Estimated Blood Loss 0 Findings See Below (CBD stone removed, stent placed) Specimens None Description of Procedure EUS/ERCP I attest to the content of the Intraoperative Record and any orders documented therein. Any exceptions are noted below.
[2023-10-01] MEDS ORDERED: SUGAMMADEX SODIUM 200 MG/2 ML VIAL IV ONE (11:53)
[2023-10-01] MEDS ORDERED: ONDANSETRON INJ 2 MG/ML 2 ML VIAL ONE (11:57)
--- NOTE | 2023-10-01 11:57 | GI REPORT ---
Patient Name: Tricia Rodriguez Procedure Date: 10/01/2023 11:10 AM Date of : 1950 Admit Type: Inpatient Age: 72 Gender: Female Attending MD: Juan Craig MD, Procedure: Upper GI endoscopy Providers: Juan Craig MD Referring MD: Tim Cruz Md Indications: Abdominal pain Medicines: General Anesthesia Complications: No immediate complications. Estimated Blood Loss: Estimated blood loss: none. Procedure: Pre-Anesthesia Assessment: - Prior to the procedure, a History and Physical was performed, and patient medications, allergies and sensitivities were reviewed. The patient's tolerance of previous anesthesia was reviewed. - The risks and benefits of the procedure and the sedation options and risks were discussed with the patient. All questions were answered and informed consent was obtained. - Patient identification and proposed procedure were verified prior to the procedure by the physician and the nurse. The procedure was verified in the procedure room. - Pre-procedure physical examination revealed no contraindications to sedation. After obtaining informed consent, the endoscope was passed under direct vision. Throughout the procedure, the patient's blood pressure, pulse, and oxygen saturations were monitored continuously. The Endoscope was introduced through the mouth, and advanced to the second part of duodenum. The upper GI endoscopy was accomplished without difficulty. The patient tolerated the procedure well. Findings: Esophagitis with no bleeding was found in the lower third of the esophagus. The entire examined stomach was normal. The duodenal bulb and second portion of the duodenum were normal. Impression: - Reflux esophagitis. - Normal stomach. - Normal duodenal bulb and second portion of the duodenum. - No specimens collected. Recommendation: - Perform an upper endoscopic ultrasound (UEUS) today. - PO PPI for 3 months. Juan Craig MD 10/01/2023 11:57:20 AM This report has been signed electronically. Note Initiated On: 10/01/2023 11:10 AM Number of Addenda: 0 I attest to the content of the Intraoperative Record and orders documented therein, exceptions below {[id number]}
--- NOTE | 2023-10-01 12:06 | GI REPORT ---
Patient Name: Tricia Rodriguez Procedure Date: 10/01/2023 11:09 AM Date of : 1950 Admit Type: Inpatient Age: 72 Gender: Female Attending MD: Juan Craig MD, Procedure: Upper EUS Providers: Juan Craig MD Referring MD: Tim Cruz Md Indications: Elevated liver enzymes Medicines: General Anesthesia Complications: No immediate complications. Estimated Blood Loss: Estimated blood loss: none. Procedure: Pre-Anesthesia Assessment: - Prior to the procedure, a History and Physical was performed, and patient medications, allergies and sensitivities were reviewed. The patient's tolerance of previous anesthesia was reviewed. - The risks and benefits of the procedure and the sedation options and risks were discussed with the patient. All questions were answered and informed consent was obtained. - Patient identification and proposed procedure were verified prior to the procedure by the physician and the nurse. The procedure was verified in the procedure room. - Pre-procedure physical examination revealed no contraindications to sedation. After obtaining informed consent, the endoscope was passed under direct vision. Throughout the procedure, the patient's blood pressure, pulse, and oxygen saturations were monitored continuously. The Endosonoscope was introduced through the mouth, and advanced to the second part of duodenum. The upper EUS was accomplished without difficulty. The patient tolerated the procedure well. Findings: ENDOSONOGRAPHIC FINDING: : There was no sign of significant endosonographic abnormality in the ampulla. No masses were identified. One stone was visualized endosonographically in the common bile duct. It was hyperechoic and characterized by shadowing. The duct diameter measured 6 mm. There was thickening of the wall suggestive of inflammation. Multiple stones were visualized endosonographically in the gallbladder. They were hyperechoic and characterized by shadowing. There was no sign of significant endosonographic abnormality in the visualized portion of the liver. Homogeneous parenchyma was identified. There was no sign of significant endosonographic abnormality in the entire pancreas. The pancreatic duct measured up to 2 mm in diameter. Impression: - There was no sign of significant pathology in the ampulla. - One stone was visualized endosonographically in the common bile duct. - Multiple stones were visualized endosonographically in the gallbladder. - There was no evidence of significant pathology in the visualized portion of the liver. - There was no sign of significant pathology in the entire pancreas. - No specimens collected. Recommendation: - Perform an ERCP today. Juan Craig MD 10/01/2023 12:05:58 PM This report has been signed electronically. Note Initiated On: 10/01/2023 11:09 AM Number of Addenda: 0 I attest to the content of the Intraoperative Record and orders documented therein, exceptions below {[id number]}
--- NOTE | 2023-10-01 12:09 | GI REPORT ---
Patient Name: Tricia Rodriguez Procedure Date: 10/01/2023 11:08 AM Date of : 1950 Admit Type: Inpatient Age: 72 Gender: Female Attending MD: Juan Craig MD, Procedure: ERCP Providers: Juan Craig MD Referring MD: Tim Cruz Md Indications: For therapy of bile duct stone(s) Medicines: General Anesthesia Complications: No immediate complications. Estimated Blood Loss: Estimated blood loss: none. Procedure: Pre-Anesthesia Assessment: - Prior to the procedure, a History and Physical was performed, and patient medications, allergies and sensitivities were reviewed. The patient's tolerance of previous anesthesia was reviewed. - The risks and benefits of the procedure and the sedation options and risks were discussed with the patient. All questions were answered and informed consent was obtained. - Patient identification and proposed procedure were verified prior to the procedure by the physician and the nurse. The procedure was verified in the procedure room. - Pre-procedure physical examination revealed no contraindications to sedation. After obtaining informed consent, the scope was passed under direct vision. Throughout the procedure, the patient's blood pressure, pulse, and oxygen saturations were monitored continuously. The Duodenoscope was introduced through the mouth, and advanced to the duodenum and used to inject contrast into the bile duct. The ERCP was accomplished without difficulty. The patient tolerated the procedure well. Findings: The track repair supervisor film was normal. The esophagus was successfully intubated under direct vision. The scope was advanced to a normal major papilla in the descending duodenum without detailed examination of the pharynx, larynx and associated structures, and upper GI tract. The upper GI tract was grossly normal. The major papilla was on the rim of a diverticulum. A 0.025 inch x 270 cm angled Visiglide wire was passed into the biliary tree. The short-nosed traction sphincterotome was passed over the guidewire and the bile duct was then deeply cannulated. Contrast was injected. I personally interpreted the bile duct images. Ductal flow of contrast was adequate. Image quality was adequate. Contrast extended to the main bile duct. Opacification of the entire biliary tree was successful. The maximum diameter of the ducts was 8 mm. Biliary sphincterotomy was made with a monofilament traction (standard) sphincterotome using ERBE electrocautery. There was self limited oozing from the sphincterotomy which did not require treatment. The biliary tree was swept with a 12 mm balloon starting at the bifurcation. One stone was removed. No stones remained. One 10 mm by 6 cm covered metal biliary stent was placed into the common bile duct. Bile flowed through the stent. The stent was in good position. Impression: - Choledocholithiasis was found. Complete removal was accomplished by biliary sphincterotomy and balloon extraction. - One covered metal biliary stent was placed into the common bile duct. Recommendation: - Return patient [facility] for [facility] care. - Repeat ERCP in 3 months to remove stent. - Follow up with surgery for cholecystectomy. Juan Craig MD 10/01/2023 12:08:21 PM This report has been signed electronically. Note Initiated On: 10/01/2023 11:08 AM Number of Addenda: 0 I attest to the content of the Intraoperative Record and orders documented therein, exceptions below {[id number]}
--- NOTE | 2023-10-01 12:13 | Fluoroscopy Report ---
INTRAOPERATIVE RADIOGRAPHS CLINICAL HISTORY: ERCP. Fluoro time: 23 seconds Ka,r: 10.05 mGy FINDINGS: 6 spot fluoroscopic views of the right upper quadrant from an ERCP procedure were correlate d with MRCP dated 10/01/[address] dated 09/30/2023. A catheter was advanced into the common b ile duct. A balloon sweep of the duct is performed. The final image shows a common bile duct stent in place. There is no intrahepatic biliary ductal dilatation. IMPRESSION: Intraoperative ERCP images as above. See operative report for detailed findings. Electronically signed by: Nick Cotton M.D. 10/01/2023 12:11 PM
--- NOTE | 2023-10-01 12:50 | Anesthesiology Progress Note ---
Date of Service October 01, 2023 Anesthesia Post Procedure Vital Signs Vital Signs: Temp Pulse Pulse Resp BP BP Pulse Ox 10/01/23 12:40 85 21 153/79 H 95 10/01/23 12:30 87 22 159/81 H 98 10/01/23 12:20 102 H 21 136/73 99 10/01/23 12:13 97.0 F L 97 H 20 132/73 95 10/01/23 10:28 98.8 F 117 H 20 168/101 H 94 10/01/23 08:24 110 H 10/01/23 04:29 73 18 140/77 94 10/01/23 02:52 10/01/23 02:18 77 10/01/23 01:19 85 22 147/79 H 95 10/01/23 01:09 84 23 141/76 H 94 10/01/23 00:59 84 20 141/76 H 93 09/30/23 23:49 84 22 129/64 93 09/30/23 22:17 92 H 24 143/74 H 96 09/30/23 21:33 107 H 22 95 09/30/23 21:29 120 H 09/30/23 16:41 97.9 F 101 H 18 159/88 H 97 Pulse Ox O2 Del Method O2 Del Method O2 Flow Rate 10/01/23 12:40 Oxymask 3 10/01/23 12:30 Oxymask 3 10/01/23 12:20 Oxymask 6 10/01/23 12:13 Oxymask 6 10/01/23 10:28 Room Air 10/01/23 08:24 10/01/23 04:29 Room Air 10/01/23 02:52 94 Room Air 10/01/23 02:18 10/01/23 01:19 Room Air 10/01/23 01:09 Room Air 10/01/23 00:59 Room Air 09/30/23 23:49 Room Air 09/30/23 22:17 Room Air 09/30/23 21:33 Room Air 09/30/23 21:29 09/30/23 16:41 Room Air Pain Intensity Abdomen: Pain Intensity: 2 Throat: Pain Intensity: 4 Transfer of Care Handoff Completed per policy Notes Mental Status: alert / awake / arousable and participated in evaluation Patient Amnestic to Procedure: Yes Nausea / Vomiting: adequately controlled Pain: adequately controlled Airway Patency, RR, SpO2: stable & adequate BP & HR: stable & adequate Hydration State: stable & adequate Anesthetic Complications: no major complications apparent and Pt Satisfied with anesthetic care
[2023-10-01] MEDS: fentaNYL citrate PF 100 MCG/2 ML VIAL IV PRN ×2 (13:05→14:13)
[2023-10-01 13:10] LABS: Toxic Vacuolation 2+
--- NOTE | 2023-10-01 13:55 | Electrocardiogram Report ---
Test Reason : Blood Pressure : / mmHG Vent. Rate : 122 BPM Atrial Rate : 122 BPM P-R Int : 158 ms QRS Dur : 112 ms QT Int : 350 ms P-R-T Axes : 025 -09 -02 degrees QTc Int : 498 ms Sinus tachycardia with Premature atrial complexes Possible Left atrial enlargement Incomplete right bundle branch block T wave abnormality, consider anterior ischemia Abnormal ECG No previous ECGs available Confirmed by Anders Mcginnis ([id number]) on 10/01/2023 1:55:21 PM Referred By: REFERRED SELF Confirmed By:Anders Mcginnis
--- NOTE | 2023-10-01 14:37 | Pharmacy Report ---
Pharmacy Glycemic Short Note 2 - Date of Service October 01, 2023 - Glycemic Short BSG Results (Last 24 hours): 09/30/23 10/01/23 10/01/23 18:05 01:07 03:46 Glucose 345 H* POC Glucose 355 H* 341 H* 10/01/23 10/01/23 10/01/23 04:45 07:58 10:26 Glucose 334 H* POC Glucose 246 H 183 H 10/01/23 12:15 Glucose POC Glucose 134 H OUTPATIENT ANTIDIABETIC REGIMEN: * N/A HbA1c = 9.6% ASSESSMENT: * 72 y/o F admitted with sepsis and cholecystitis. She seems to be a diabetic based on her A1c but was not on any anti-diabetic meds at home. * Patient came in was high BSG > 300 mg/dl. Basal and bolus insulins started last night. * Basal 5 units given last night but BSGs were elevated. Fasting = 246 mg/dl this morning. 12 units of basal dose given this morning which is based on a s tress of 2. * Novolog parameters tightened to stress of 3 this morning. BSG at noon trended down to 134 mg/dl. * Will continue with basal dose once daily in the AM- dosing between stress of 2 and 3. PLAN FOR INPATIENT GLYCEMIC CONTROL: * Basal insulin * Lantus 5 units SQ last night; 12 units today AM * Lantus 15 mg SQ QAM starting tomorrow. * Bolus insulin * NovoLog per scale ACHS or Q6hrs while NPO * Goal Range: Low 110 mg/dL - High 140 mg/dL * Correction Factor: 15 mg/dL/unit * Nutritional / Prandial insulin per carb ratio of 1 unit per 7 grams CHO consumed
[2023-10-01] MEDS: PANTOprazole 40 MG TAB PO SCH ×2 (15:43→21:02)
[2023-10-01] MEDS: SODIUM CHLORIDE 0.9% 1,000 ML IV SCH (21:02)
[2023-10-02] MEDS: INSULIN ASPART PER UNIT CHARGE SC SCH ×6 (00:56→20:18)
[2023-10-02] MEDS: SODIUM CHLORIDE 0.9% 1,000 ML IV SCH ×5 (02:10→23:22)
[2023-10-02] MEDS ORDERED: KETOROLAC TROMETHAMINE 15 MG/ML VIAL IV ONE (03:50)
[2023-10-02] MEDS ORDERED: ACETAMINOPHEN 325 MG TAB PO STA (04:27)
[2023-10-02] MEDS: PIPERACILLIN/TAZOBACTAM 4.5 GM in DEXTROSE 5% MINI-B 100 ML IV SCH ×3 (04:27→20:18)
[2023-10-02 06:17] LABS: Hematocrit (blood only) 35.2 % (37.0-47.0); Hemoglobin 11.9 g/dl (12.0-16.0); Mean Corpuscular Hemoglobin 31.8 pg (25.0-34.0); Mean Corpuscular Hgb Conc 33.8 g/dL (32.0-36.0); Mean Corpuscular Volume 94.1 fL (80.0-100.0); Mean Platelet Volume 9.9 fL (9.4-12.4); Platelet Count 191 K/uL (130-400); RDW Coefficient of Variation 12.2 % (11.5-14.5); RDW Standard Deviation 42.6 fL (36.4-46.3); Red Blood Count 3.74 M/uL (4.20-5.40); White Blood Count 9.08 K/ul (4.8-10.8)
[2023-10-02 06:43] LABS: Albumin Level 2.9 gm/dl (3.4-5.0); BUN Creatinine Ratio 14.5 (10-20); Bilirubin,Total 8.2 mg/dl (0.2-1.0); Calcium 7.5 mg/dl (8.6-10.3); Creatinine Clr Calc Pharmacy 83.1 ml/min; Est GFR (African American) 104.4 ml/min; Est GFR (Non-African American) 90.1 ml/min; Globulin 2.9 gm/dl (2.5-4.0); Magnesium 1.5 mg/dl (1.7-2.4); Phosphorus 1.6 mg/dl (2.5-4.9); Potassium 3.3 mmol/L (3.5-5.1); Total Protein 5.8 gm/dl (6.0-8.3)
[2023-10-02] MEDS: PANTOprazole 40 MG TAB PO SCH ×2 (08:21→20:18)
[2023-10-02] MEDS ORDERED: LANTUS PER UNIT CHARGE SC SCH ×2 (09:00)
--- NOTE | 2023-10-02 09:00 | Gastroenterology Progress Note ---
Date of Service October 02, 2023 Assessment & Plan (1) Choledocholithiasis: Plan: 72 year old female presenting with RUQ abd pain, nausea admitted w/ elevated lipase, elevated LFTs and imaging with gallstones, concerning for CBD obstruction s/p ERCP - Continue ABX - Antiemeics PRN - Analgesia PRN - May continue clears today, if no plan for surgery, may advance to low fat as tolerated - Continue to trend LFTs (Tbili/AST remain elevated, ALT/ALKP starting to d owntrend) - PO PPI for 3 months. - Repeat ERCP in 3 months to remove stent. - Follow up with surgery for cholecystectomy. Thank you for allowing us to participate in the care of this patient. Please call with any acute changes, questions or concerns. Please see addendum below with additional recommendation from my supervising physician. Admission and Anticipated Discharge Date Admission Date: September 30, 2023 Supervising Physician Co-Signing Physician Notes I personally saw and evaluated the patinet on 10/02/2023 with CELENA Lowe and agree with her findings and plan of care. Abdomen soft and non-tender. Notable scleral icterus. Patient is s/p ERCP yesterday with removal of CBD stone and stent placement. She is doing well today other than some back pain that she reports. No abdominal pain, fevers, or chills. Bilirubin actually went up by 2 points today remainder of LFTs overall stable. General surgery is planning for cholecystectomy on Thursday. Would recommend to continue to trend LFTs to ensure they begin decreasing. Ok to advance diet as tolerated. CCY per general surgery. if LFTs do not improve please let GI know. Will need repeat ERCP in 3 months for stent exchange which we will arrange. Continue abx for a total of 5 days. Carolina Hubbard, Gastroenterology and Hepatology Subjective Pt was seen & evaluated, chart reviewed. Feeling well - tolerating clears. No abd pain. No nausea, vomiting. Has some back pain which she feels like is related to her sleeping position overnight. WBC improved Tbili/AST elevated ALT/ALKP downtrending EGD: Esophagitis with no bleeding was found in the lower third of the esophagus. The entire examined stomach was normal. The duodenal bulb and second portion of the duodenum were normal. ERCP: - Choledocholithiasis was found. Complete removal was accomplished by biliary sphincterotomy and balloon extraction. - One covered metal biliary stent was placed into the common bile duct. Review of Systems Review of Systems: All systems reviewed & are unremarkable except as noted in HPI & below Physical Exam Constitutional: WD/WN, vitals as above Respiratory: normal respiratory effort, lungs clear to auscultation Cardiovascular: Rate/Rhythm: regular rate Gastrointestinal (Abdomen): normal bowel sounds, soft, nontender, no hepatosplenomegaly Skin: no rashes, warm and dry Results & Data Vital Signs (Past 12 Hours) Vital Signs Temp Pulse Pulse Resp BP Pulse Ox O2 Del Method 10/02/23 07:47 37.1 C 73 18 143/74 H 93 Room Air 10/02/23 07:28 73 10/02/23 03:30 37.2 C 86 18 136/71 93 Room Air 10/01/23 22:00 37.8 C H 91 H 20 134/81 94 Room Air 10/01/23 21:58 107 H Laboratory Results 10/02/23 10/02/23 10/02/23 Range/Units 08:11 06:04 05:37 WBC 9.08 (4.8-10.8) K/ul RBC 3.74 L (4.20-5.40) M/uL Hgb 11.9 L (12.0-16.0) g/dl Hct 35.2 L (37.0-47.0) % MCV 94.1 (80.0-100.0) fL MCH 31.8 (25.0-34.0) pg MCHC 33.8 (32.0-36.0) g/dL RDW Std Deviation 42.6 (36.4-46.3) fL RDW Coeff of Laura 12.2 (11.5-14.5) % Plt Count 191 (130-400) K/uL MPV 9.9 (9.4-12.4) fL Toxic Vacuolation Sodium 135 L (136-145) mmol/L Potassium 3.3 L D (3.5-5.1) mmol/L Chloride 104 (98-107) mmol/L Carbon Dioxide 24 (21-32) mmol/L Anion Gap 7 (3-11) BUN 9 (6-23) mg/dl Creatinine 0.62 (0.6-1.2) mg/dl Est Cr Clr Drug Dosing 83.1 ml/min Est GFR ( Amer) 104.4 ml/min Est GFR (Non-Af Amer) 90.1 ml/min BUN/Creatinine Ratio 14.5 (10-20) Glucose 172 H (70-99(Fasting)) mg/dl POC Glucose 148 H 174 H (70-99) mg/dl Calcium 7.5 L (8.6-10.3) mg/dl Phosphorus 1.6 L (2.5-4.9) mg/dl Magnesium 1.5 L (1.7-2.4) mg/dl Total Bilirubin 8.2 H (0.2-1.0) mg/dl AST 157 H (13-39) U/L ALT 174 H (7-52) U/L Alkaline Phosphatase 168 H (34-104) U/L Total Protein 5.8 L (6.0-8.3) gm/dl Albumin 2.9 L (3.4-5.0) gm/dl Globulin 2.9 (2.5-4.0) gm/dl Albumin/Globulin Ratio 1.0 (0.9-2) Lipase 1437 H (11-82) U/L 10/02/23 10/01/23 10/01/23 Range/Units 00:50 20:08 16:39 WBC (4.8-10.8) K/ul RBC (4.20-5.40) M/uL Hgb (12.0-16.0) g/dl Hct (37.0-47.0) % MCV (80.0-100.0) fL MCH (25.0-34.0) pg MCHC (32.0-36.0) g/dL RDW Std Deviation (36.4-46.3) fL RDW Coeff of Laura (11.5-14.5) % Plt Count (130-400) K/uL MPV (9.4-12.4) fL Toxic Vacuolation Sodium (136-145) mmol/L Potassium (3.5-5.1) mmol/L Chloride (98-107) mmol/L Carbon Dioxide (21-32) mmol/L Anion Gap (3-11) BUN (6-23) mg/dl Creatinine (0.6-1.2) mg/dl Est Cr Clr Drug Dosing ml/min Est GFR ( Amer) ml/min Est GFR (Non-Af Amer) ml/min BUN/Creatinine Ratio (10-20) Glucose (70-99(Fasting)) mg/dl POC Glucose 160 H 219 H 162 H (70-99) mg/dl Calcium (8.6-10.3) mg/dl Phosphorus (2.5-4.9) mg/dl Magnesium (1.7-2.4) mg/dl Total Bilirubin (0.2-1.0) mg/dl AST (13-39) U/L ALT (7-52) U/L Alkaline Phosphatase (34-104) U/L Total Protein (6.0-8.3) gm/dl Albumin (3.4-5.0) gm/dl Globulin (2.5-4.0) gm/dl Albumin/Globulin Ratio (0.9-2) Lipase (11-82) U/L 10/01/23 10/01/23 09/30/23 Range/Units 12:15 10:26 18:05 WBC (4.8-10.8) K/ul RBC (4.20-5.40) M/uL Hgb (12.0-16.0) g/dl Hct (37.0-47.0) % MCV (80.0-100.0) fL MCH (25.0-34.0) pg MCHC (32.0-36.0) g/dL RDW Std Deviation (36.4-46.3) fL RDW Coeff of Laura (11.5-14.5) % Plt Count (130-400) K/uL MPV (9.4-12.4) fL Toxic Vacuolation 2+ Sodium (136-145) mmol/L Potassium (3.5-5.1) mmol/L Chloride (98-107) mmol/L Carbon Dioxide (21-32) mmol/L Anion Gap (3-11) BUN (6-23) mg/dl Creatinine (0.6-1.2) mg/dl Est Cr Clr Drug Dosing ml/min Est GFR ( Amer) ml/min Est GFR (Non-Af Amer) ml/min BUN/Creatinine Ratio (10-20) Glucose (70-99(Fasting)) mg/dl POC Glucose 134 H 183 H (70-99) mg/dl Calcium (8.6-10.3) mg/dl Phosphorus (2.5-4.9) mg/dl Magnesium (1.7-2.4) mg/dl Total Bilirubin (0.2-1.0) mg/dl AST (13-39) U/L ALT (7-52) U/L Alkaline Phosphatase (34-104) U/L Total Protein (6.0-8.3) gm/dl Albumin (3.4-5.0) gm/dl Globulin (2.5-4.0) gm/dl Albumin/Globulin Ratio (0.9-2) Lipase (11-82) U/L
[2023-10-02] MEDS: HYDROmorphone INJ 0.5 MG/0.5 ML SYR IV PRN ×4 (09:27→23:22)
[2023-10-02] MEDS ORDERED: MAGNESIUM SULFATE / D5W 1 GM/100 ML BAG IV ONE (09:33)
[2023-10-02] MEDS ORDERED: POTASSIUM CHLORIDE CRTAB 20 MEQ TABCR PO STA (09:34)
--- NOTE | 2023-10-02 09:37 | Hospitalist Progress Note ---
Date of Service October 02, 2023 Assessment & Plan (1) Acute gallstone pancreatitis: Plan: 72-year-old female with past med history significant for possible hiatal hernia and did not go to doctors for last 20 years comes because of abdominal pain radiating to the back started at 11 AM today. It was 8/10 in severity. Also with nausea. Denies any fevers. Had normal bowel movement today morning. Normal bladder movements. Denies any chest pain or shortness of breath. No cough. No headache. No runny nose or sore throat. Otherwise appetite is okay. Otherwise ambulating and climbing steps okay. Patient states last few months she is having on and off abdominal pain after eating food but it is to subside but today it was persistent so she came to the ER. Acute gallstone pancreatitis Choledocholithiasis. Esophagitis (reflux) Presents with abdominal pain Elevated lipase Elevated LFTs. Gallbladder ultrasound and MRCP obtained - no acute cholecystitis, + cholelithiasis GI and gen. surgery consulted GI - pt is s/p EGD/ERCP - esophagitis, + choledocholithiasis, stone removed and stent placed, plan to repeat ERCP in 3 months and remove the stent, cont. PO PPI bid for 3 months monitor LFTs checked lipid profile Cont. IV fluids, IV Dilaudid as needed, IV antiemetics as needed Closely monitor 1/5 bilirubin elevated today, after ERCP yesterday Seen by gen. surgery - plan for cholecystectomy on Thursday Cont. to monitor LFTs Hyperglycemia New onset diabetes Not been doctor for many years HbA1c level 9.6% placed on Lantus insulin sliding scale Follow blood sugars glycemic pharmacy consulted adult educator DVT prophylaxis SCDs for now Disposition Med/tele Full code Admission and Anticipated Discharge Date Admission Date: September 30, 2023 Subjective Pt seen in follow up of gallstone pancreatitis, choledocholithiasis Underwent ERCP yesterday Currently sitting up in chair in NAD, reports abd. pain has resolved and she reports some back pain No fever, chills, chest pain, shortness of breath, n/v Tolerating clear liquid diet Bilirubin increased today, pt jaundiced. Seen by surgery and plan for cholecystectomy on Thursday. Review of Systems Review of Systems: All systems reviewed & are unremarkable except as noted in Subjective Physical Exam Physical Exam: General- WD/WN F in NAD Head- atraumatic Eyes- PERRL. +scleral icterus ENT- oropharynx clear Neck- supple, no JVD. Lungs- clear to auscultation no wheezing or crackles. Heart- regular rhythm; no murmur, no gallop. Abdomen- normal bowel sounds, soft, minimal tenderness in RUQ and epigastric region (improved) Extremities- Trace pretibial edema, no erythema seen. Neuro- alert, oriented x 3; PERRL,; no facial palsy; no dysarthria; moves extremities. Skin- warm & dry, + jaundiced Results & Data Results & Data Vital Signs (Past 12 Hours) Vital Signs Temp Pulse Pulse Resp BP Pulse Ox O2 Del Method 10/02/23 07:47 37.1 C 73 18 143/74 H 93 Room Air 10/02/23 07:28 73 10/02/23 03:30 37.2 C 86 18 136/71 93 Room Air 10/01/23 22:00 37.8 C H 91 H 20 134/81 94 Room Air 10/01/23 21:58 107 H Laboratory Results 10/02/23 10/02/23 10/02/23 Range/Units 08:11 06:04 05:37 WBC 9.08 (4.8-10.8) K/ul RBC 3.74 L (4.20-5.40) M/uL Hgb 11.9 L (12.0-16.0) g/dl Hct 35.2 L (37.0-47.0) % MCV 94.1 (80.0-100.0) fL MCH 31.8 (25.0-34.0) pg MCHC 33.8 (32.0-36.0) g/dL RDW Std Deviation 42.6 (36.4-46.3) fL RDW Coeff of Laura 12.2 (11.5-14.5) % Plt Count 191 (130-400) K/uL MPV 9.9 (9.4-12.4) fL Toxic Vacuolation Sodium 135 L (136-145) mmol/L Potassium 3.3 L D (3.5-5.1) mmol/L Chloride 104 (98-107) mmol/L Carbon Dioxide 24 (21-32) mmol/L Anion Gap 7 (3-11) BUN 9 (6-23) mg/dl Creatinine 0.62 (0.6-1.2) mg/dl Est Cr Clr Drug Dosing 83.1 ml/min Est GFR ( Amer) 104.4 ml/min Est GFR (Non-Af Amer) 90.1 ml/min BUN/Creatinine Ratio 14.5 (10-20) Glucose 172 H (70-99(Fasting)) mg/dl POC Glucose 148 H 174 H (70-99) mg/dl Calcium 7.5 L (8.6-10.3) mg/dl Phosphorus 1.6 L (2.5-4.9) mg/dl Magnesium 1.5 L (1.7-2.4) mg/dl Total Bilirubin 8.2 H (0.2-1.0) mg/dl AST 157 H (13-39) U/L ALT 174 H (7-52) U/L Alkaline Phosphatase 168 H (34-104) U/L Total Protein 5.8 L (6.0-8.3) gm/dl Albumin 2.9 L (3.4-5.0) gm/dl Globulin 2.9 (2.5-4.0) gm/dl Albumin/Globulin Ratio 1.0 (0.9-2) Lipase 1437 H (11-82) U/L 10/02/23 10/01/23 10/01/23 Range/Units 00:50 20:08 16:39 WBC (4.8-10.8) K/ul RBC (4.20-5.40) M/uL Hgb (12.0-16.0) g/dl Hct (37.0-47.0) % MCV (80.0-100.0) fL MCH (25.0-34.0) pg MCHC (32.0-36.0) g/dL RDW Std Deviation (36.4-46.3) fL RDW Coeff of Laura (11.5-14.5) % Plt Count (130-400) K/uL MPV (9.4-12.4) fL Toxic Vacuolation Sodium (136-145) mmol/L Potassium (3.5-5.1) mmol/L Chloride (98-107) mmol/L Carbon Dioxide (21-32) mmol/L Anion Gap (3-11) BUN (6-23) mg/dl Creatinine (0.6-1.2) mg/dl Est Cr Clr Drug Dosing ml/min Est GFR ( Amer) ml/min Est GFR (Non-Af Amer) ml/min BUN/Creatinine Ratio (10-20) Glucose (70-99(Fasting)) mg/dl POC Glucose 160 H 219 H 162 H (70-99) mg/dl Calcium (8.6-10.3) mg/dl Phosphorus (2.5-4.9) mg/dl Magnesium (1.7-2.4) mg/dl Total Bilirubin (0.2-1.0) mg/dl AST (13-39) U/L ALT (7-52) U/L Alkaline Phosphatase (34-104) U/L Total Protein (6.0-8.3) gm/dl Albumin (3.4-5.0) gm/dl Globulin (2.5-4.0) gm/dl Albumin/Globulin Ratio (0.9-2) Lipase (11-82) U/L 10/01/23 10/01/23 09/30/23 Range/Units 12:15 10:26 18:05 WBC (4.8-10.8) K/ul RBC (4.20-5.40) M/uL Hgb (12.0-16.0) g/dl Hct (37.0-47.0) % MCV (80.0-100.0) fL MCH (25.0-34.0) pg MCHC (32.0-36.0) g/dL RDW Std Deviation (36.4-46.3) fL RDW Coeff of Laura (11.5-14.5) % Plt Count (130-400) K/uL MPV (9.4-12.4) fL Toxic Vacuolation 2+ Sodium (136-145) mmol/L Potassium (3.5-5.1) mmol/L Chloride (98-107) mmol/L Carbon Dioxide (21-32) mmol/L Anion Gap (3-11) BUN (6-23) mg/dl Creatinine (0.6-1.2) mg/dl Est Cr Clr Drug Dosing ml/min Est GFR ( Amer) ml/min Est GFR (Non-Af Amer) ml/min BUN/Creatinine Ratio (10-20) Glucose (70-99(Fasting)) mg/dl POC Glucose 134 H 183 H (70-99) mg/dl Calcium (8.6-10.3) mg/dl Phosphorus (2.5-4.9) mg/dl Magnesium (1.7-2.4) mg/dl Total Bilirubin (0.2-1.0) mg/dl AST (13-39) U/L ALT (7-52) U/L Alkaline Phosphatase (34-104) U/L Total Protein (6.0-8.3) gm/dl Albumin (3.4-5.0) gm/dl Globulin (2.5-4.0) gm/dl Albumin/Globulin Ratio (0.9-2) Lipase (11-82) U/L Medications Administered Current Inpatient Medications Dextrose (Dextrose 50% 50 Ml Syringe) 25 - 50 ml IV UD PRN; Protocol PRN Reason: Hypoglycemia Protocol Stop: 10/31/23 01:00 Glucagon (Glucagon For Inj 1 Mg Vial) 1 mg SQ UD PRN; Protocol PRN Reason: Hypoglycemia Protocol Stop: 10/31/23 01:00 Glucose (Glucose 10 Tab/Tube) 4 - 8 tab PO UD PRN; Protocol PRN Reason: Hypoglycemia Treatment Stop: 10/31/23 01:00 Glucose (Glucose 40% Gel 15 Gm Tube) 15 - 30 gm PO UD PRN; Protocol PRN Reason: Hypoglycemia Protocol Stop: 10/31/23 01:00 Hydromorphone HCl (Hydromorphone Inj 0.5 Mg/0.5 Ml Syr) 0.5 mg IV Q3H PRN PRN Reason: Pain Stop: 10/15/23 01:00 Last Admin: 10/02/23 09:27 Dose: 0.5 mg Piperacillin Sod/Tazobactam (Sod 4.5 gm/ Dextrose) 100 mls @ 25 mls/hr IV Q8H [facility]; Protocol Stop: 10/11/23 03:59 Last Infusion: 10/02/23 08:27 Dose: Infused Sodium Chloride (Nss) 1,000 mls @ 200 mls/hr IV .Q5H [facility] Stop: 10/31/23 20:44 Last Admin: 10/02/23 07:10 Dose: 200 mls/hr Magnesium Sulfate/Dextrose (Magnesium Sulfate / D5w) 1 gm in 100 mls @ 50 mls/hr IV ONE ONE Stop: 10/02/23 11:32 Insulin Aspart (Insulin Aspart Per Unit Charge) 0 units SC ACHS [facility] Stop: 10/31/23 03:29 Last Admin: 10/02/23 09:20 Dose: 5 units Insulin Glargine (Lantus Per Unit Charge) 12 units SC QAM [facility] Stop: 11/01/23 08:59 Last Admin: 10/02/23 09:21 Dose: 12 units Miscellaneous (Carbohydrates For Hypoglycemia ) 15 - 30 gm PO UD PRN PRN Reason: Hypoglycemia Protocol Stop: 10/31/23 01:00 Miscellaneous Information (Pharmacy Glycemic Mgmt Consult) 1 each N/A UD PRN PRN Reason: Consult Stop: 10/31/23 01:00 Pantoprazole Sodium (Pantoprazole 40 Mg Tab) 40 mg PO BID [facility] Stop: 10/31/23 12:14 Last Admin: 10/02/23 08:21 Dose: 40 mg Potassium Chloride (Potassium Chloride Crtab 20 Meq Tabcr) 40 meq PO NOW STA Stop: 10/02/23 09:35
--- NOTE | 2023-10-02 12:35 | Surgery Progress Note ---
Date of Service October 02, 2023 Assessment & Plan (1) Choledocholithiasis: Plan: POD 1 ERCP/EUS stent placement patient sitting in chair Denies abdominal pain complaints of back pain from bed ordered po Tylenol VSS T. bili up to 8.2 today Jaundice skin and eyes Would like to wait until Thursday for laparoscopic cholecystectomy Will continue to montior. (2) Acute gallstone pancreatitis: (3) Cholelithiasis: Admission and Anticipated Discharge Date Admission Date: September 30, 2023 Supervising Physician Co-Signing Physician Notes choledocholithiasis s/p ercp. she desires to stay and have cholecystectomy thursday. diet as tolerated cont abx plan for robotic assisted laparoscopic cholecystectomy with possible cholangiogram on Thursday risks discussed to include but not limited to bleeding, infection, retained stone, bile leak, open surgery, damage to surrounding structures including bile duct, need for future or more extensive surgery, failure to treat symptoms, and risks of anesthesia. npo after midnight Subjective patient sitting in chair Denies abdominal pain complaints of back pain from bed Review of Systems Constitutional: no fever and no chills Ear, Nose, Mouth, Throat: no problem reported Respiratory: no cough and no dyspnea Cardiovascular: no chest pain Gastrointestinal: no abdominal pain, no bloating, no nausea and no vomiting Genitourinary: no dysuria Musculoskeletal: no muscle weakness Integumentary: + yellowing of the skin Neurologic: no confusion and no memory loss Physical Exam Physical Exam: alert oriented Constitutional: well developed, cooperative and comfortable; no acute distress ENMT: external ear and nose normal, oropharynx normal Neck: trachea midline, no thyromegaly Respiratory: normal respiratory effort and able to speak in complete sentences; no respiratory distress Cardiovascular: Rate/Rhythm: regular rate Gastrointestinal (Abdomen): Inspection/Auscultation: abdomen not distended Percussion/Palpation: abdomen soft; abdomen nontender, no guarding and abdomen not rigid Musculoskeletal: no cyanosis or clubbing, extremities motor strength 5/5 Skin: + jaundice Neurologic: awake; not confused Psychiatric: Orientation: alert and oriented x 3 Results & Data Vital Signs (Past 12 Hours) Vital Signs Temp Pulse Pulse Resp BP BP Pulse Ox 10/02/23 11:23 98.8 F 69 18 115/67 94 10/02/23 07:47 98.8 F 73 18 143/74 H 93 10/02/23 07:28 73 10/02/23 03:30 99.0 F 86 18 136/71 93 O2 Del Method 10/02/23 11:23 Room Air 10/02/23 07:47 Room Air 10/02/23 07:28 10/02/23 03:30 Room Air PG Care Time/CCT Total # of Minutes Spent Total Time Spent with Patient: Total time spent is greater than 50% in coordination of care (as documented) at patient's floor/unit and/or counseling patient: Coding Level of Care Code 21212 SUB INP/OBS CARE 10/22MIN Diagnoses Choledocholithiasis K80.50 Acute gallstone pancreatitis K85.10 Cholelithiasis K80.20
--- NOTE | 2023-10-02 13:02 | Pharmacy Report ---
Pharmacy Glycemic Short Note 2 - Date of Service October 02, 2023 - Glycemic Short BSG Results (Last 24 hours): 10/01/23 10/01/23 10/02/23 16:39 20:08 00:50 Glucose POC Glucose 162 H 219 H 160 H 10/02/23 10/02/23 10/02/23 05:37 06:04 08:11 Glucose 172 H POC Glucose 174 H 148 H 10/02/23 12:06 Glucose POC Glucose 149 H OUTPATIENT ANTIDIABETIC REGIMEN: * N/A HbA1c = 9.6% ASSESSMENT: 10/02/23: * BSGs reasonably controlled yesterday w/ improved fasting BSG this morning of 148 mg/dL * Diet advanced to clears following EGD yesterday. Tentative plan for laparoscopic cholecystectomy next week. * Will do one more day of current basal dosing and increase tomorrow morning if needed 10/01/23: * 72 y/o F admitted with sepsis and cholecystitis. She seems to be a diabetic based on her A1c but was not on any anti-diabetic meds at home. * Patient came in was high BSG > 300 mg/dl. Basal and bolus insulins started last night. * Basal 5 units given last night but BSGs were elevated. Fasting = 246 mg/dl this morning. 12 units of basal dose given this morning which is based on a stress of 2. * Novolog parameters tightened to stress of 3 this morning. BSG at noon trended down to 134 mg/dl. * Will continue with basal dose once daily in the AM- dosing between stress of 2 and 3. PLAN FOR INPATIENT GLYCEMIC CONTROL: * Basal insulin * Lantus 12-15 units SC daily (see EHR for details) * Bolus insulin * NovoLog per scale ACHS or Q6hrs while NPO * Goal Range: Low 110 mg/dL - High 140 mg/dL * Correction Factor: 20 mg/dL/unit * Nutritional / Prandial insulin per carb ratio of 1 unit per 7 grams CHO consumed
[2023-10-03] MEDS: PIPERACILLIN/TAZOBACTAM 4.5 GM in DEXTROSE 5% MINI-B 100 ML IV SCH ×3 (02:57→19:54)
[2023-10-03] MEDS: HYDROmorphone INJ 0.5 MG/0.5 ML SYR IV PRN ×6 (02:57→23:35)
[2023-10-03] MEDS: SODIUM CHLORIDE 0.9% 1,000 ML IV SCH ×3 (04:51→18:44)
[2023-10-03 06:51] LABS: Hematocrit (blood only) 33.9 % (37.0-47.0); Hemoglobin 11.8 g/dl (12.0-16.0); Mean Corpuscular Hemoglobin 32.6 pg (25.0-34.0); Mean Corpuscular Hgb Conc 34.8 g/dL (32.0-36.0); Mean Corpuscular Volume 93.6 fL (80.0-100.0); Mean Platelet Volume 9.9 fL (9.4-12.4); Platelet Count 226 K/uL (130-400); RDW Coefficient of Variation 12.4 % (11.5-14.5); RDW Standard Deviation 42.8 fL (36.4-46.3); Red Blood Count 3.62 M/uL (4.20-5.40); White Blood Count 11.71 K/ul (4.8-10.8)
[2023-10-03 07:04] LABS: Albumin Globulin Ratio 0.9 (0.9-2); Albumin Level 2.9 gm/dl (3.4-5.0); BUN Creatinine Ratio 8.9 (10-20); Bilirubin,Total 5.6 mg/dl (0.2-1.0); Calcium 7.4 mg/dl (8.6-10.3); Est GFR (Non-African American) 93.2 ml/min; Globulin 3.1 gm/dl (2.5-4.0); Magnesium 1.8 mg/dl (1.7-2.4); Phosphorus 1.6 mg/dl (2.5-4.9); Potassium 3.4 mmol/L (3.5-5.1)
[2023-10-03] MEDS: LANTUS PER UNIT CHARGE SC SCH ×2 (08:56→15:22)
[2023-10-03] MEDS: PANTOprazole 40 MG TAB PO SCH ×2 (08:56→20:46)
[2023-10-03] MEDS: INSULIN ASPART PER UNIT CHARGE SC SCH ×4 (08:58→20:45)
--- NOTE | 2023-10-03 09:16 | Hospitalist Progress Note ---
Date of Service October 03, 2023 Assessment & Plan (1) Acute gallstone pancreatitis: Plan: 72-year-old female with past med history significant for possible hiatal hernia and did not go to doctors for last 20 years comes because of abdominal pain radiating to the back started at 11 AM today. It was 8/10 in severity. Also with nausea. Denies any fevers. Had normal bowel movement prior to admission. Denies any chest pain or shortness of breath. No cough. No headache. No runny nose or sore throat. Otherwise appetite is okay. Otherwise ambulating and climbing steps okay. Patient states last few months she is having on and off abdominal pain after eating food but it is to subside but today it was persistent so she came to the ER. Acute gallstone pancreatitis Choledocholithiasis. Esophagitis (reflux) Presents with abdominal pain Elevated lipase Elevated LFTs. Gallbladder ultrasound and MRCP obtained - no acute cholecystitis, + cholelithiasis GI and gen. surgery consulted GI - pt is s/p EGD/ERCP - + esophagitis, + choledocholithiasis, stone removed and stent placed, plan to repeat ERCP in 3 months and remove the stent, cont. PO PPI bid for 3 months monitor LFTs checked lipid profile Cont. IV fluids, IV Dilaudid as needed, IV antiemetics as needed Closely monitor 1/5 bilirubin elevated today, after ERCP yesterday Seen by gen. surgery - plan for cholecystectomy on Thursday Cont. to monitor LFTs 1/6 Bilirubin improved today, cont. to monitor -abd. pain seemed resolved until pt ate breakfast then w/ some discomfort, cont. to monitor Hyperglycemia New onset diabetes Not been doctor for many years HbA1c level 9.6% placed on Lantus insulin sliding scale Follow blood sugars glycemic pharmacy consulted machine captain DVT prophylaxis SCDs for now Disposition Med/tele Full code Admission and Anticipated Discharge Date Admission Date: September 30, 2023 Subjective Pt seen in follow up of gallstone pancreatitis, choledocholithiasis Underwent ERCP, plan for cholecystectomy on Thursday Currently sitting up in bed in NAD, reports abd. pain has mostly resolved and she felt well until she ate breakfast, then felt more bloated and with more discomfort No fever, chills, chest pain, shortness of breath, n/v Bilirubin improved from yesterday Review of Systems Review of Systems: All systems reviewed & are unremarkable except as noted in Subjective Physical Exam Physical Exam: General- WD/WN F in NAD Head- atraumatic Eyes- PERRL. +scleral icterus ENT- oropharynx clear Neck- supple, no JVD. Lungs- clear to auscultation no wheezing or crackles. Heart- regular rhythm; no murmur, no gallop. Abdomen- normal bowel sounds, soft, minimal tenderness in RUQ and epigastric region (improved) Extremities- Trace pretibial edema, no erythema seen. Neuro- alert, oriented x 3; PERRL,; no facial palsy; no dysarthria; moves extremities. Skin- warm & dry, + jaundiced (improved) Results & Data Results & Data Vital Signs (Past 12 Hours) Vital Signs Temp Pulse Pulse Resp BP Pulse Ox O2 Del Method 10/03/23 07:50 36.9 C 88 16 163/81 H 93 Room Air 10/03/23 03:00 37.1 C 84 18 143/74 H 92 Room Air 10/03/23 00:09 87 10/02/23 23:00 37.6 C H 87 20 157/81 H 93 Room Air Laboratory Results 10/03/23 10/03/23 10/02/23 Range/Units 08:23 06:03 20:09 WBC 11.71 H (4.8-10.8) K/ul RBC 3.62 L (4.20-5.40) M/uL Hgb 11.8 L (12.0-16.0) g/dl Hct 33.9 L (37.0-47.0) % MCV 93.6 (80.0-100.0) fL MCH 32.6 (25.0-34.0) pg MCHC 34.8 (32.0-36.0) g/dL RDW Std Deviation 42.8 (36.4-46.3) fL RDW Coeff of Laura 12.4 (11.5-14.5) % Plt Count 226 (130-400) K/uL MPV 9.9 (9.4-12.4) fL Sodium 135 L (136-145) mmol/L Potassium 3.4 L (3.5-5.1) mmol/L Chloride 105 (98-107) mmol/L Carbon Dioxide 22 (21-32) mmol/L Anion Gap 8 (3-11) BUN 5 L (6-23) mg/dl Creatinine 0.56 L (0.6-1.2) mg/dl Est Cr Clr Drug Dosing 92.0 ml/min Est GFR ( Amer) 108.0 ml/min Est GFR (Non-Af Amer) 93.2 ml/min BUN/Creatinine Ratio 8.9 L (10-20) Glucose 113 H (70-99(Fasting)) mg/dl POC Glucose 94 156 H (70-99) mg/dl Calcium 7.4 L (8.6-10.3) mg/dl Phosphorus 1.6 L (2.5-4.9) mg/dl Magnesium 1.8 (1.7-2.4) mg/dl Total Bilirubin 5.6 H (0.2-1.0) mg/dl AST 126 H (13-39) U/L ALT 160 H (7-52) U/L Alkaline Phosphatase 181 H (34-104) U/L Total Protein 6.0 (6.0-8.3) gm/dl Albumin 2.9 L (3.4-5.0) gm/dl Globulin 3.1 (2.5-4.0) gm/dl Albumin/Globulin Ratio 0.9 (0.9-2) Lipase 310 H (11-82) U/L 10/02/23 10/02/23 Range/Units 17:16 12:06 WBC (4.8-10.8) K/ul RBC (4.20-5.40) M/uL Hgb (12.0-16.0) g/dl Hct (37.0-47.0) % MCV (80.0-100.0) fL MCH (25.0-34.0) pg MCHC (32.0-36.0) g/dL RDW Std Deviation (36.4-46.3) fL RDW Coeff of Laura (11.5-14.5) % Plt Count (130-400) K/uL MPV (9.4-12.4) fL Sodium (136-145) mmol/L Potassium (3.5-5.1) mmol/L Chloride (98-107) mmol/L Carbon Dioxide (21-32) mmol/L Anion Gap (3-11) BUN (6-23) mg/dl Creatinine (0.6-1.2) mg/dl Est Cr Clr Drug Dosing ml/min Est GFR ( Amer) ml/min Est GFR (Non-Af Amer) ml/min BUN/Creatinine Ratio (10-20) Glucose (70-99(Fasting)) mg/dl POC Glucose 109 H 149 H (70-99) mg/dl Calcium (8.6-10.3) mg/dl Phosphorus (2.5-4.9) mg/dl Magnesium (1.7-2.4) mg/dl Total Bilirubin (0.2-1.0) mg/dl AST (13-39) U/L ALT (7-52) U/L Alkaline Phosphatase (34-104) U/L Total Protein (6.0-8.3) gm/dl Albumin (3.4-5.0) gm/dl Globulin (2.5-4.0) gm/dl Albumin/Globulin Ratio (0.9-2) Lipase (11-82) U/L Medications Administered Current Inpatient Medications Acetaminophen (Acetaminophen 325 Mg Tab) 650 mg PO Q6H PRN PRN Reason: Pain Stop: 11/01/23 12:34 Dextrose (Dextrose 50% 50 Ml Syringe) 25 - 50 ml IV UD PRN; Protocol PRN Reason: Hypoglycemia Protocol Stop: 10/31/23 01:00 Glucagon (Glucagon For Inj 1 Mg Vial) 1 mg SQ UD PRN; Protocol PRN Reason: Hypoglycemia Protocol Stop: 10/31/23 01:00 Glucose (Glucose 10 Tab/Tube) 4 - 8 tab PO UD PRN; Protocol PRN Reason: Hypoglycemia Treatment Stop: 10/31/23 01:00 Glucose (Glucose 40% Gel 15 Gm Tube) 15 - 30 gm PO UD PRN; Protocol PRN Reason: Hypoglycemia Protocol Stop: 10/31/23 01:00 Hydromorphone HCl (Hydromorphone Inj 0.5 Mg/0.5 Ml Syr) 0.5 mg IV Q3H PRN PRN Reason: Pain Stop: 10/15/23 01:00 Last Admin: 10/03/23 07:32 Dose: 0.5 mg Piperacillin Sod/Tazobactam (Sod 4.5 gm/ Dextrose) 100 mls @ 25 mls/hr IV Q8H [facility]; Protocol Stop: 10/11/23 03:59 Last Infusion: 10/03/23 07:14 Dose: Infused Sodium Chloride (Nss) 1,000 mls @ 100 mls/hr IV .Q10H [facility] Stop: 10/31/23 20:44 Last Admin: 10/03/23 04:51 Dose: 200 mls/hr Insulin Aspart (Insulin Aspart Per Unit Charge) 0 units SC ACHS [facility] Stop: 10/31/23 03:29 Last Admin: 10/03/23 08:58 Dose: 2 units Insulin Glargine (Lantus Per Unit Charge) 0 units SC QAM [facility]; Protocol Stop: 11/01/23 08:59 Last Admin: 10/03/23 08:56 Dose: Not Given Miscellaneous (Carbohydrates For Hypoglycemia ) 15 - 30 gm PO UD PRN PRN Reason: Hypoglycemia Protocol Stop: 10/31/23 01:00 Miscellaneous Information (Pharmacy Glycemic Mgmt Consult) 1 each N/A UD PRN PRN Reason: Consult Stop: 10/31/23 01:00 Pantoprazole Sodium (Pantoprazole 40 Mg Tab) 40 mg PO BID [facility] Stop: 10/31/23 12:14 Last Admin: 10/03/23 08:56 Dose: 40 mg
[2023-10-03] MEDS: ACETAMINOPHEN 325 MG TAB PO PRN (17:19)
[2023-10-04] MEDS: HYDROmorphone INJ 0.5 MG/0.5 ML SYR IV PRN ×6 (03:11→21:14)
[2023-10-04] MEDS: SODIUM CHLORIDE 0.9% 1,000 ML IV SCH ×2 (05:06→15:05)
[2023-10-04] MEDS: PIPERACILLIN/TAZOBACTAM 4.5 GM in DEXTROSE 5% MINI-B 100 ML IV SCH ×3 (05:07→20:09)
[2023-10-04] MEDS: ACETAMINOPHEN 325 MG TAB PO PRN (07:23)
[2023-10-04] MEDS: PANTOprazole 40 MG TAB PO SCH ×2 (08:57→20:09)
[2023-10-04] MEDS ORDERED: LANTUS PER UNIT CHARGE SC SCH (09:00)
[2023-10-04 09:03] LABS: Hematocrit (blood only) 35.6 % (37.0-47.0); Hemoglobin 12.1 g/dl (12.0-16.0); Mean Corpuscular Hemoglobin 31.9 pg (25.0-34.0); Mean Corpuscular Volume 93.9 fL (80.0-100.0); Mean Platelet Volume 9.6 fL (9.4-12.4); Platelet Count 284 K/uL (130-400); RDW Coefficient of Variation 12.7 % (11.5-14.5); RDW Standard Deviation 43.9 fL (36.4-46.3); Red Blood Count 3.79 M/uL (4.20-5.40)
[2023-10-04] MEDS: INSULIN ASPART PER UNIT CHARGE SC SCH ×4 (09:03→20:06)
[2023-10-04 09:14] LABS: Albumin Globulin Ratio 0.9 (0.9-2); BUN Creatinine Ratio 8.2 (10-20); Bilirubin,Total 3.5 mg/dl (0.2-1.0); Creatinine Clr Calc Pharmacy 105.1 ml/min; Est GFR (African American) 112.8 ml/min; Est GFR (Non-African American) 97.3 ml/min; Globulin 3.5 gm/dl (2.5-4.0); Magnesium 1.8 mg/dl (1.7-2.4); Phosphorus 1.7 mg/dl (2.5-4.9); Potassium 3.1 mmol/L (3.5-5.1); Total Protein 6.5 gm/dl (6.0-8.3)
[2023-10-04] MEDS ORDERED: POTASSIUM CHLORIDE CRTAB 20 MEQ TABCR PO STA (10:17)
[2023-10-04] MEDS ORDERED: POTASSIUM PHOS 3 MMOL/1 ML INFUSION IV STA (10:17)
--- NOTE | 2023-10-04 10:23 | Hospitalist Progress Note ---
Date of Service October 04, 2023 Assessment & Plan (1) Acute gallstone pancreatitis: Plan: 72 yo F with past med history significant for possible hiatal hernia and did not go to doctors for last 20 years comes because of abdominal pain radiating to the back started at 11 AM today. It was 8/10 in severity. Also with nausea. Denies any fevers. Had normal bowel movement prior to admission. Denies any chest pain or shortness of breath. No cough. No headache. No runny nose or sore throat. Otherwise appetite is okay. Otherwise ambulating and climbing steps okay. Patient states last few months she is having on and off abdominal pain after eating food but it is to subside but today it was persistent so she came to the ER. Acute gallstone pancreatitis Choledocholithiasis. Esophagitis (reflux) Presents with abdominal pain Elevated lipase Elevated LFTs. Gallbladder ultrasound and MRCP obtained - no acute cholecystitis, + cholelithiasis GI and gen. surgery consulted GI - pt is s/p EGD/ERCP - + esophagitis, + choledocholithiasis, stone removed and stent placed, plan to repeat ERCP in 3 months and remove the stent, cont. PO PPI bid for 3 months monitor LFTs checked lipid profile Cont. IV fluids, IV Dilaudid as needed, IV antiemetics as needed Closely monitor 1/5 bilirubin elevated today, after ERCP yesterday Seen by gen. surgery - plan for cholecystectomy on Thursday Cont. to monitor LFTs 1/6 Bilirubin improved today, cont. to monitor -abd. pain seemed resolved until pt ate breakfast then w/ some discomfort, cont. to monitor 1/7 Bilirubin continues to trend down. lipase down. WBC slightly up. Cont. zosyn, plan for cholecystectomy tmrw Hyperglycemia New onset diabetes Not been doctor for many years HbA1c level 9.6% placed on Lantus insulin sliding scale Follow blood sugars glycemic pharmacy consulted pile trimmer DVT prophylaxis SCDs for now Disposition Med/tele Full code Admission and Anticipated Discharge Date Admission Date: September 30, 2023 Subjective Pt seen in follow up of gallstone pancreatitis, choledocholithiasis Underwent ERCP, plan for cholecystectomy on Thursday Currently sitting up in bed in chair in NAD, reports abd. pain has mostly resolved No fever, chills, chest pain, shortness of breath, n/v Bilirubin improved from yesterday Sister in law present at the bedside and updated (she will be helping pt after discharge) Review of Systems Review of Systems: All systems reviewed & are unremarkable except as noted in Subjective Physical Exam Physical Exam: General- WD/WN F in NAD Head- atraumatic Eyes- PERRL. no scleral icterus (resolved) ENT- oropharynx clear Neck- supple, no JVD. Lungs- clear to auscultation no wheezing or crackles. Heart- regular rhythm; no murmur, no gallop. Abdomen- normal bowel sounds, soft, minimal tenderness in RUQ and epigastric region (improved) Extremities- Trace pretibial edema, no erythema seen. Neuro- alert, oriented x 3; PERRL,; no facial palsy; no dysarthria; moves extremities. Skin- warm & dry, no jaundice (resolved) Results & Data Results & Data Vital Signs (Past 12 Hours) Vital Signs Temp Pulse Pulse Resp BP Pulse Ox O2 Del Method 10/04/23 07:43 36.9 C 74 18 151/70 H 95 Room Air 10/04/23 06:53 72 10/04/23 03:10 36.7 C 81 17 157/85 H 96 Room Air 10/03/23 23:18 36.9 C 75 16 129/77 94 Room Air 10/03/23 22:45 67 Laboratory Results 10/04/23 10/04/23 10/03/23 Range/Units 08:33 08:02 20:26 WBC 13.10 H (4.8-10.8) K/ul RBC 3.79 L (4.20-5.40) M/uL Hgb 12.1 (12.0-16.0) g/dl Hct 35.6 L (37.0-47.0) % MCV 93.9 (80.0-100.0) fL MCH 31.9 (25.0-34.0) pg MCHC 34.0 (32.0-36.0) g/dL RDW Std Deviation 43.9 (36.4-46.3) fL RDW Coeff of Laura 12.7 (11.5-14.5) % Plt Count 284 (130-400) K/uL MPV 9.6 (9.4-12.4) fL Sodium 137 (136-145) mmol/L Potassium 3.1 L (3.5-5.1) mmol/L Chloride 105 (98-107) mmol/L Carbon Dioxide 25 (21-32) mmol/L Anion Gap 7 (3-11) BUN 4 L (6-23) mg/dl Creatinine 0.49 L (0.6-1.2) mg/dl Est Cr Clr Drug Dosing 105.1 ml/min Est GFR ( Amer) 112.8 ml/min Est GFR (Non-Af Amer) 97.3 ml/min BUN/Creatinine Ratio 8.2 L (10-20) Glucose 98 (70-99(Fasting)) mg/dl POC Glucose 98 120 H (70-99) mg/dl Calcium 8.0 L (8.6-10.3) mg/dl Phosphorus 1.7 L (2.5-4.9) mg/dl Magnesium 1.8 (1.7-2.4) mg/dl Total Bilirubin 3.5 H (0.2-1.0) mg/dl AST 71 H (13-39) U/L ALT 120 H (7-52) U/L Alkaline Phosphatase 187 H (34-104) U/L Total Protein 6.5 (6.0-8.3) gm/dl Albumin 3.0 L (3.4-5.0) gm/dl Globulin 3.5 (2.5-4.0) gm/dl Albumin/Globulin Ratio 0.9 (0.9-2) 10/03/23 10/03/23 10/03/23 Range/Units 19:11 17:18 12:24 WBC (4.8-10.8) K/ul RBC (4.20-5.40) M/uL Hgb (12.0-16.0) g/dl Hct (37.0-47.0) % MCV (80.0-100.0) fL MCH (25.0-34.0) pg MCHC (32.0-36.0) g/dL RDW Std Deviation (36.4-46.3) fL RDW Coeff of Laura (11.5-14.5) % Plt Count (130-400) K/uL MPV (9.4-12.4) fL Sodium (136-145) mmol/L Potassium (3.5-5.1) mmol/L Chloride (98-107) mmol/L Carbon Dioxide (21-32) mmol/L Anion Gap (3-11) BUN (6-23) mg/dl Creatinine (0.6-1.2) mg/dl Est Cr Clr Drug Dosing ml/min Est GFR ( Amer) ml/min Est GFR (Non-Af Amer) ml/min BUN/Creatinine Ratio (10-20) Glucose (70-99(Fasting)) mg/dl POC Glucose 176 H 109 H 108 H (70-99) mg/dl Calcium (8.6-10.3) mg/dl Phosphorus (2.5-4.9) mg/dl Magnesium (1.7-2.4) mg/dl Total Bilirubin (0.2-1.0) mg/dl AST (13-39) U/L ALT (7-52) U/L Alkaline Phosphatase (34-104) U/L Total Protein (6.0-8.3) gm/dl Albumin (3.4-5.0) gm/dl Globulin (2.5-4.0) gm/dl Albumin/Globulin Ratio (0.9-2) Medications Administered Current Inpatient Medications Acetaminophen (Acetaminophen 325 Mg Tab) 650 mg PO Q6H PRN PRN Reason: Pain Stop: 11/01/23 12:34 Last Admin: 10/04/23 07:23 Dose: 650 mg Dextrose (Dextrose 50% 50 Ml Syringe) 25 - 50 ml IV UD PRN; Protocol PRN Reason: Hypoglycemia Protocol Stop: 10/31/23 01:00 Glucagon (Glucagon For Inj 1 Mg Vial) 1 mg SQ UD PRN; Protocol PRN Reason: Hypoglycemia Protocol Stop: 10/31/23 01:00 Glucose (Glucose 10 Tab/Tube) 4 - 8 tab PO UD PRN; Protocol PRN Reason: Hypoglycemia Treatment Stop: 10/31/23 01:00 Glucose (Glucose 40% Gel 15 Gm Tube) 15 - 30 gm PO UD PRN; Protocol PRN Reason: Hypoglycemia Protocol Stop: 10/31/23 01:00 Hydromorphone HCl (Hydromorphone Inj 0.5 Mg/0.5 Ml Syr) 0.5 mg IV Q3H PRN PRN Reason: Pain Stop: 10/15/23 01:00 Last Admin: 10/04/23 09:39 Dose: 0.5 mg Piperacillin Sod/Tazobactam (Sod 4.5 gm/ Dextrose) 100 mls @ 25 mls/hr IV Q8H [facility]; Protocol Stop: 10/11/23 03:59 Last Infusion: 10/04/23 09:10 Dose: Infused Sodium Chloride (Nss) 1,000 mls @ 100 mls/hr IV .Q10H [facility] Stop: 10/31/23 20:44 Last Admin: 10/04/23 05:06 Dose: 100 mls/hr Insulin Aspart (Insulin Aspart Per Unit Charge) 0 units SC ACHS [facility] Stop: 10/31/23 03:29 Last Admin: 10/04/23 09:03 Dose: 4 units Insulin Glargine (Lantus Per Unit Charge) 12 units SC QAM [facility] Stop: 11/03/23 08:59 Last Admin: 10/04/23 09:02 Dose: 12 units Miscellaneous (Carbohydrates For Hypoglycemia ) 15 - 30 gm PO UD PRN PRN Reason: Hypoglycemia Protocol Stop: 10/31/23 01:00 Miscellaneous Information (Pharmacy Glycemic Mgmt Consult) 1 each N/A UD PRN PRN Reason: Consult Stop: 10/31/23 01:00 Pantoprazole Sodium (Pantoprazole 40 Mg Tab) 40 mg PO BID [facility] Stop: 10/31/23 12:14 Last Admin: 10/04/23 08:57 Dose: 40 mg Potassium Chloride (Potassium Chloride Crtab 20 Meq Tabcr) 40 meq PO NOW STA Stop: 10/04/23 10:18 Potassium Phosphate (Potassium Phos 3 Mmol/1 Ml Infusion) 15 mmol IV NOW STA Stop: 10/04/23 10:18 Potassium Phosphate (Pot Phosphate Monobasic W/ Sod Tab) 1 tab PO QID [facility] Stop: 11/03/23 12:59
[2023-10-04] MEDS ORDERED: POTASSIUM PHOSPHATE 15 MMOL in SODIUM CHLORIDE 0.9% 250 ML IV ONE (10:45)
[2023-10-04] MEDS ORDERED: Nursing to Pharmacy Communication SCH (11:15)
[2023-10-04] MEDS: POT PHOSPHATE MONOBASIC W/ SOD TAB PO SCH ×3 (12:51→20:09)
--- NOTE | 2023-10-04 17:14 | Anesthesiology Consultation ---
Date of Service October 04, 2023 Assessment & Plan Chart Review Chart Review: Acceptable Risk for Surgery and Patient NOT seen in Pre Admission Testing Consults Requested none ASA ASA3 Proposed Anesthesia Anesthesia Type: General History Surgery Operation Date: 10/01/23 08:50 Proposed Procedures p Endoscopic Ultrasonography Upper - Juan Craig MD s Endoscopic Retrograde Cholangiopancreatogram - Juan Craig MD Operation Date: 10/05/23 07:00 Proposed Procedures p Robotic Cholecystectomy - Valentin Ro DO, FACS Height/Weight Height: 5 ft 6 in Weight: 71.5 kg Allergies Allergy/AdvReac Type Severity Reaction Status Date / Time aspirin Allergy ringing Verified 09/30/23 22:08 ears,shakes,diarrhea,upset stomach Tetanus Vaccines and Toxoid Allergy convulsions Verified 09/30/23 22:09 acesulfame AdvReac Migraine Verified 10/01/23 09:59 aspartame AdvReac Migraine Verified 10/01/23 09:59 coconut AdvReac Diarrhea Verified 09/30/23 22:13 diazepam [From Valium] AdvReac doesn't Verified 09/30/23 22:12 work Neotame AdvReac Migraine Verified 10/01/23 09:59 procaine [From Novocain] AdvReac lucero't Verified 09/30/23 22:12 work saccharin AdvReac Migraine Verified 10/01/23 09:59 sucralose AdvReac Migraine Verified 10/01/23 09:59 Medications Home Medications Medication Instructions Recorded Confirmed Last Taken No Known Home Medications 09/30/23 09/30/23 Unknown Active Medications Generic Name Dose Route Start Last Admin Trade Name Dajuan PRN Reason Stop Dose Admin Acetaminophen 650 mg 10/02/23 12:35 10/04/23 07:23 Acetaminophen 325 Mg Tab PO 11/01/23 12:34 650 mg Q6H PRN Administration Pain Hydromorphone HCl 0.5 mg 10/01/23 01:01 10/04/23 16:55 Hydromorphone Inj 0.5 Mg/0.5 Ml Syr IV 10/15/23 01:00 0.5 mg Q3H PRN Administration Pain Piperacillin Sod/Tazobactam 100 mls @ 25 mls/hr 10/01/23 04:00 10/04/23 16:51 Sod 4.5 gm/ Dextrose IV 10/11/23 03:59 Infused Q8H [facility] Infusion Protocol Sodium Chloride 1,000 mls @ 100 mls/hr 10/01/23 20:45 10/04/23 15:05 Nss IV 10/31/23 20:44 100 mls/hr .Q10H [facility] Administration Insulin Aspart 0 units 10/02/23 07:30 10/04/23 12:43 Insulin Aspart Per Unit Charge SC 10/31/23 03:29 Not Given ACHS [facility] Miscellaneous 15 - 30 gm 10/01/23 01:01 10/04/23 12:33 Carbohydrates For Hypoglycemia PO 10/31/23 01:00 15 gm UD PRN Administration Hypoglycemia Protocol Pantoprazole Sodium 40 mg 10/01/23 12:15 10/04/23 08:57 Pantoprazole 40 Mg Tab PO 10/31/23 12:14 40 mg BID [facility] Administration Potassium Phosphate 1 tab 10/04/23 13:00 10/04/23 16:56 Pot Phosphate Monobasic W/ Sod Tab PO 11/03/23 12:59 1 tab QID [facility] Administration Past Medical History Medical History Cholelithiasis Choledocholithiasis gallstone pancreatitis IRBBB Hypokalemia Exercise / Class Metabolic Activity II 4-5 Yardwork/Stairs/Walk up hill Past Anesthesia History No Hx of Anesthesia Complications and No Family Hx of Anesthesia Complications History of PONV No Hx of PONV and No Hx of Motion Sickness Social History Smoking Status: Never smoker Hx Alcohol Use: Yes alcohol intake frequency: a few times a month Hx Substance Use: No Physical Exam Vital Signs Last Vital Signs Temp 36.9 C 10/04/23 16:18 Pulse 77 10/04/23 16:18 Resp 18 10/04/23 16:18 BP 169/90 H 10/04/23 16:18 Pulse Ox 97 10/04/23 16:18 O2 Del Method Room Air 10/04/23 16:18 O2 Flow Rate 2 10/01/23 15:00 Testing Laboratory Results 10/04/23 08:33 10/04/23 08:33 Hemoglobin A1c 9.6 % (4.5-5.6) H 10/01/23 04:45 Urine Color Dark Yellow 09/30/23 19:04 Urine Appearance Clear (Clear) 09/30/23 19:04 Urine pH 5.0 (4.5-7.5) 09/30/23 19:04 Ur Specific Mcdavid 1.029 (1.000-1.030) 09/30/23 19:04 Urine Protein Trace (Negative) H 09/30/23 19:04 Urine Glucose (UA) 3+ (Negative) H 09/30/23 19:04 Urine Ketones 2+ (Negative) H 09/30/23 19:04 Urine Nitrite Negative (Negative) 09/30/23 19:04 Ur Leukocyte Esterase Negative (Negative) 09/30/23 19:04 Urine WBC (Auto) 5-10 /hpf (0-5) H 09/30/23 19:04 Urine RBC (Auto) 0-4 /hpf (0-4) 09/30/23 19:04 U Hyaline Cast (Auto) 1-5 /lpf (0-5) 09/30/23 19:04 U Epithel Cells (Auto) >30 /lpf (0-5) H 09/30/23 19:04 Urine Bacteria (Auto) 1+ (Negative) H 09/30/23 19:04 09/30/23 20:17 Aerobic Blood Culture - Preliminary Blood No growth in Aerobic bottle after 48 hours. Anaerobic Blood Culture - Preliminary No growth in Anaerobic bottle after 48 hours. 09/30/23 20:17 Aerobic Blood Culture - Preliminary Blood No growth in Aerobic bottle after 48 hours. Anaerobic Blood Culture - Preliminary No growth in Anaerobic bottle after 48 hours. 09/30/23 19:04 Urine Culture - Final Urine,Clean Catch Group B Beta Strep 10/04/23 10/04/23 10/04/23 16:26 12:49 12:21 POC Glucose 91 91 69 L* 10/04/23 10/04/23 12:20 08:02 POC Glucose 69 L* 98 Electrocardiogram Date: 09/30/23 Findings: + ST @ (@ 122 w/ PAC's;LAE;IRBBB;T wave abnormality)
[2023-10-05] MEDS: HYDROmorphone INJ 0.5 MG/0.5 ML SYR IV PRN ×4 (00:14→19:31)
[2023-10-05] MEDS: SODIUM CHLORIDE 0.9% 1,000 ML IV SCH ×3 (01:59→19:31)
[2023-10-05] MEDS: PIPERACILLIN/TAZOBACTAM 4.5 GM in DEXTROSE 5% MINI-B 100 ML IV SCH ×3 (03:36→19:32)
[2023-10-05] MEDS: INSULIN ASPART PER UNIT CHARGE SC SCH ×3 (07:30→21:28)
[2023-10-05 07:31] LABS: Hematocrit (blood only) 30.2 % (37.0-47.0); Hemoglobin 10.7 g/dl (12.0-16.0); Mean Corpuscular Hemoglobin 32.3 pg (25.0-34.0); Mean Corpuscular Hgb Conc 35.4 g/dL (32.0-36.0); Mean Corpuscular Volume 91.2 fL (80.0-100.0); Mean Platelet Volume 9.8 fL (9.4-12.4); Platelet Count 298 K/uL (130-400); RDW Coefficient of Variation 12.7 % (11.5-14.5); RDW Standard Deviation 42.4 fL (36.4-46.3); Red Blood Count 3.31 M/uL (4.20-5.40); White Blood Count 12.27 K/ul (4.8-10.8)
[2023-10-05 07:54] LABS: Albumin Globulin Ratio 0.9 (0.9-2); Albumin Level 2.7 gm/dl (3.4-5.0); BUN Creatinine Ratio 8.2 (10-20); Bilirubin,Total 2.4 mg/dl (0.2-1.0); Calcium 7.5 mg/dl (8.6-10.3); Creatinine Clr Calc Pharmacy 105.1 ml/min; Est GFR (African American) 112.8 ml/min; Est GFR (Non-African American) 97.3 ml/min; Magnesium 1.7 mg/dl (1.7-2.4); Phosphorus 2.2 mg/dl (2.5-4.9); Potassium 2.9 mmol/L (3.5-5.1); Total Protein 5.7 gm/dl (6.0-8.3)
[2023-10-05 07:59] LABS: INR 1.1 (0.9-1.1); Prothrombin Time 11.9 Seconds (9.0-12.0)
[2023-10-05] MEDS ORDERED: POTASSIUM CHLORIDE CRTAB 20 MEQ TABCR PO STA (08:20)
[2023-10-05] MEDS ORDERED: POTASSIUM PHOS 3 MMOL/1 ML INFUSION IV STA (08:20)
[2023-10-05] MEDS ORDERED: POTASSIUM PHOSPHATE 21 MMOL in SODIUM CHLORIDE 0.9% 500 ML IV ONE (08:30)
[2023-10-05] MEDS: POT PHOSPHATE MONOBASIC W/ SOD TAB PO SCH ×4 (08:32→21:27)
[2023-10-05] MEDS: PANTOprazole 40 MG TAB PO SCH ×2 (08:32→21:27)
--- NOTE | 2023-10-05 08:41 | Hospitalist Progress Note ---
Date of Service October 05, 2023 Assessment & Plan (1) Acute gallstone pancreatitis: Plan: 72 yo F with past med history significant for possible hiatal hernia and did not go to doctors for last 20 years comes because of abdominal pain radiating to the back started at 11 AM today. It was 8/10 in severity. Also with nausea. Denies any fevers. Had normal bowel movement prior to admission. Denies any chest pain or shortness of breath. No cough. No headache. No runny nose or sore throat. Otherwise appetite is okay. Otherwise ambulating and climbing steps okay. Patient states last few months she is having on and off abdominal pain after eating food but it is to subside but today it was persistent so she came to the ER. Acute gallstone pancreatitis Choledocholithiasis. Esophagitis (reflux) Presents with abdominal pain Elevated lipase Elevated LFTs. Gallbladder ultrasound and MRCP obtained - no acute cholecystitis, + cholelithiasis GI and gen. surgery consulted GI - pt is s/p EGD/ERCP - + esophagitis, + choledocholithiasis, stone removed and stent placed, plan to repeat ERCP in 3 months and remove the stent, cont. PO PPI bid for 3 months monitor LFTs checked lipid profile Cont. IV fluids, IV Dilaudid as needed, IV antiemetics as needed Closely monitor 1/5 bilirubin elevated today, after ERCP yesterday Seen by gen. surgery - plan for cholecystectomy on Thursday Cont. to monitor LFTs 1/ Bilirubin improved today, cont. to monitor -abd. pain seemed resolved until pt ate breakfast then w/ some discomfort, cont. to monitor 1/ Bilirubin continues to trend down. lipase down. WBC slightly up. Cont. zosyn, plan for cholecystectomy tmrw 10/05 Bilirubin cont. to trend down, LFTs trended down. Cont. zosyn, plan for surgery today Hyperglycemia New onset diabetes Not been doctor for many years HbA1c level 9.6% placed on Lantus insulin sliding scale Follow blood sugars glycemic pharmacy consulted perinatal educator - 1.) Lifestyle changes. 2.) SMBG 1x/day, change the time checking from day today. 3.) Add Metformin ER 500mg daily x 1 week --> Metformin ER 500mg BID. 4.) New dx/A1c > 9%- follow-up with new primary provider for further discussion and monitoring. Hypokalemia, hypophosphatemia d/t being npo, diet restriction replace and monitor DVT prophylaxis SCDs for now, ambulation encouraged Disposition Med/tele Full code Admission and Anticipated Discharge Date Admission Date: September 30, 2023 Subjective Pt seen in follow up of gallstone pancreatitis, choledocholithiasis Underwent ERCP, plan for cholecystectomy today Currently sitting up in bed in bed in NAD, reports abd. pain is much improved No fever, chills, chest pain, shortness of breath, n/v Bilirubin keeps trending down Sister in law present at the bedside and updated yesterday (she will be helping pt after discharge). Review of Systems Review of Systems: All systems reviewed & are unremarkable except as noted in Subjective Physical Exam Physical Exam: General- WD/WN F in NAD Head- atraumatic Eyes- PERRL. no scleral icterus (resolved) ENT- oropharynx clear Neck- supple, no JVD. Lungs- clear to auscultation no wheezing or crackles. Heart- regular rhythm; no murmur, no gallop. Abdomen- normal bowel sounds, soft, minimal tenderness in RUQ and epigastric region (improved) Extremities- Trace pretibial edema, no erythema seen. Neuro- alert, oriented x 3; PERRL,; no facial palsy; no dysarthria; moves extremities. Skin- warm & dry, no jaundice (resolved) Results & Data Results & Data Vital Signs (Past 12 Hours) Vital Signs Temp Pulse Pulse Resp BP Pulse Ox O2 Del Method 10/05/23 07:42 36.8 C 73 18 152/81 H 97 Room Air 10/05/23 07:00 70 10/05/23 03:13 37 C 74 16 161/94 H 95 Room Air 10/05/23 00:34 72 10/04/23 23:15 37 C 84 18 171/90 H 96 Room Air Laboratory Results 10/05/23 10/05/23 10/04/23 Range/Units 08:16 06:37 20:35 WBC 12.27 H (4.8-10.8) K/ul RBC 3.31 L (4.20-5.40) M/uL Hgb 10.7 L (12.0-16.0) g/dl Hct 30.2 L (37.0-47.0) % MCV 91.2 (80.0-100.0) fL MCH 32.3 (25.0-34.0) pg MCHC 35.4 (32.0-36.0) g/dL RDW Std Deviation 42.4 (36.4-46.3) fL RDW Coeff of Laura 12.7 (11.5-14.5) % Plt Count 298 (130-400) K/uL MPV 9.8 (9.4-12.4) fL PT 11.9 (9.0-12.0) Seconds INR 1.1 (0.9-1.1) Sodium 139 (136-145) mmol/L Potassium 2.9 L (3.5-5.1) mmol/L Chloride 107 (98-107) mmol/L Carbon Dioxide 25 (21-32) mmol/L Anion Gap 7 (3-11) BUN 4 L (6-23) mg/dl Creatinine 0.49 L (0.6-1.2) mg/dl Est Cr Clr Drug Dosing 105.1 ml/min Est GFR ( Amer) 112.8 ml/min Est GFR (Non-Af Amer) 97.3 ml/min BUN/Creatinine Ratio 8.2 L (10-20) Glucose 70 (70-99(Fasting)) mg/dl POC Glucose 71 81 (70-99) mg/dl Calcium 7.5 L (8.6-10.3) mg/dl Phosphorus 2.2 L (2.5-4.9) mg/dl Magnesium 1.7 (1.7-2.4) mg/dl Total Bilirubin 2.4 H (0.2-1.0) mg/dl AST 44 H (13-39) U/L ALT 79 H (7-52) U/L Alkaline Phosphatase 164 H (34-104) U/L Total Protein 5.7 L (6.0-8.3) gm/dl Albumin 2.7 L (3.4-5.0) gm/dl Globulin 3.0 (2.5-4.0) gm/dl Albumin/Globulin Ratio 0.9 (0.9-2) 10/04/23 10/04/23 10/04/23 Range/Units 16:26 12:49 12:21 WBC (4.8-10.8) K/ul RBC (4.20-5.40) M/uL Hgb (12.0-16.0) g/dl Hct (37.0-47.0) % MCV (80.0-100.0) fL MCH (25.0-34.0) pg MCHC (32.0-36.0) g/dL RDW Std Deviation (36.4-46.3) fL RDW Coeff of Laura (11.5-14.5) % Plt Count (130-400) K/uL MPV (9.4-12.4) fL PT (9.0-12.0) Seconds INR (0.9-1.1) Sodium (136-145) mmol/L Potassium (3.5-5.1) mmol/L Chloride (98-107) mmol/L Carbon Dioxide (21-32) mmol/L Anion Gap (3-11) BUN (6-23) mg/dl Creatinine (0.6-1.2) mg/dl Est Cr Clr Drug Dosing ml/min Est GFR ( Amer) ml/min Est GFR (Non-Af Amer) ml/min BUN/Creatinine Ratio (10-20) Glucose (70-99(Fasting)) mg/dl POC Glucose 91 91 69 L* (70-99) mg/dl Calcium (8.6-10.3) mg/dl Phosphorus (2.5-4.9) mg/dl Magnesium (1.7-2.4) mg/dl Total Bilirubin (0.2-1.0) mg/dl AST (13-39) U/L ALT (7-52) U/L Alkaline Phosphatase (34-104) U/L Total Protein (6.0-8.3) gm/dl Albumin (3.4-5.0) gm/dl Globulin (2.5-4.0) gm/dl Albumin/Globulin Ratio (0.9-2) 10/04/23 10/04/23 Range/Units 12:20 08:33 WBC 13.10 H (4.8-10.8) K/ul RBC 3.79 L (4.20-5.40) M/uL Hgb 12.1 (12.0-16.0) g/dl Hct 35.6 L (37.0-47.0) % MCV 93.9 (80.0-100.0) fL MCH 31.9 (25.0-34.0) pg MCHC 34.0 (32.0-36.0) g/dL RDW Std Deviation 43.9 (36.4-46.3) fL RDW Coeff of Laura 12.7 (11.5-14.5) % Plt Count 284 (130-400) K/uL MPV 9.6 (9.4-12.4) fL PT (9.0-12.0) Seconds INR (0.9-1.1) Sodium 137 (136-145) mmol/L Potassium 3.1 L (3.5-5.1) mmol/L Chloride 105 (98-107) mmol/L Carbon Dioxide 25 (21-32) mmol/L Anion Gap 7 (3-11) BUN 4 L (6-23) mg/dl Creatinine 0.49 L (0.6-1.2) mg/dl Est Cr Clr Drug Dosing 105.1 ml/min Est GFR ( Amer) 112.8 ml/min Est GFR (Non-Af Amer) 97.3 ml/min BUN/Creatinine Ratio 8.2 L (10-20) Glucose 98 (70-99(Fasting)) mg/dl POC Glucose 69 L* (70-99) mg/dl Calcium 8.0 L (8.6-10.3) mg/dl Phosphorus 1.7 L (2.5-4.9) mg/dl Magnesium 1.8 (1.7-2.4) mg/dl Total Bilirubin 3.5 H (0.2-1.0) mg/dl AST 71 H (13-39) U/L ALT 120 H (7-52) U/L Alkaline Phosphatase 187 H (34-104) U/L Total Protein 6.5 (6.0-8.3) gm/dl Albumin 3.0 L (3.4-5.0) gm/dl Globulin 3.5 (2.5-4.0) gm/dl Albumin/Globulin Ratio 0.9 (0.9-2) Medications Administered Current Inpatient Medications Acetaminophen (Acetaminophen 325 Mg Tab) 650 mg PO Q6H PRN PRN Reason: Pain Stop: 11/01/23 12:34 Last Admin: 10/04/23 07:23 Dose: 650 mg Dextrose (Dextrose 50% 50 Ml Syringe) 25 - 50 ml IV UD PRN; Protocol PRN Reason: Hypoglycemia Protocol Stop: 10/31/23 01:00 Glucagon (Glucagon For Inj 1 Mg Vial) 1 mg SQ UD PRN; Protocol PRN Reason: Hypoglycemia Protocol Stop: 10/31/23 01:00 Glucose (Glucose 10 Tab/Tube) 4 - 8 tab PO UD PRN; Protocol PRN Reason: Hypoglycemia Treatment Stop: 10/31/23 01:00 Glucose (Glucose 40% Gel 15 Gm Tube) 15 - 30 gm PO UD PRN; Protocol PRN Reason: Hypoglycemia Protocol Stop: 10/31/23 01:00 Hydromorphone HCl (Hydromorphone Inj 0.5 Mg/0.5 Ml Syr) 0.5 mg IV Q3H PRN PRN Reason: Pain Stop: 10/15/23 01:00 Last Admin: 10/05/23 05:52 Dose: 0.5 mg Piperacillin Sod/Tazobactam (Sod 4.5 gm/ Dextrose) 100 mls @ 25 mls/hr IV Q8H [facility]; Protocol Stop: 10/11/23 03:59 Last Infusion: 10/05/23 07:36 Dose: Infused Sodium Chloride (Nss) 1,000 mls @ 100 mls/hr IV .Q10H [facility] Stop: 10/31/23 20:44 Last Admin: 10/05/23 01:59 Dose: 100 mls/hr Potassium Phosphate 21 mmol/ (Sodium Chloride) 507 mls @ 88 mls/hr IV ONE ONE Stop: 10/05/23 14:15 Insulin Aspart (Insulin Aspart Per Unit Charge) 0 units SC Q6 [facility] Stop: 11/01/23 07:29 Insulin Glargine (Lantus Per Unit Charge) 8 units SC QAM [facility] Stop: 11/04/23 08:59 Miscellaneous (Carbohydrates For Hypoglycemia ) 15 - 30 gm PO UD PRN PRN Reason: Hypoglycemia Protocol Stop: 10/31/23 01:00 Last Admin: 10/04/23 12:33 Dose: 15 gm Miscellaneous Information (Pharmacy Glycemic Mgmt Consult) 1 each N/A UD PRN PRN Reason: Consult Stop: 10/31/23 01:00 Pantoprazole Sodium (Pantoprazole 40 Mg Tab) 40 mg PO BID [facility] Stop: 10/31/23 12:14 Last Admin: 10/05/23 08:32 Dose: 40 mg Potassium Chloride (Potassium Chloride Crtab 20 Meq Tabcr) 20 meq PO NOW STA Stop: 10/05/23 08:21 Last Admin: 10/05/23 08:34 Dose: 20 meq Potassium Phosphate (Pot Phosphate Monobasic W/ Sod Tab) 1 tab PO QID [facility] Stop: 11/03/23 12:59 Last Admin: 10/05/23 08:32 Dose: 1 tab
--- NOTE | 2023-10-05 08:48 | Pharmacy Report ---
Pharmacy Glycemic Short Note 2 - Date of Service October 05, 2023 - Glycemic Short BSG Results (Last 24 hours): 10/04/23 10/04/23 10/04/23 08:33 12:20 12:21 Glucose 98 POC Glucose 69 L* 69 L* 10/04/23 10/04/23 10/04/23 12:49 16:26 20:35 Glucose POC Glucose 91 91 81 10/05/23 10/05/23 06:37 08:16 Glucose 70 POC Glucose 71 OUTPATIENT ANTIDIABETIC REGIMEN: * N/A HbA1c = 9.6% ASSESSMENT: 10/05/23: * BSGs tightly controlled over the weekend, ranging 69-120 mg/dL * Patient is now POD #0 s/p robotic cholecystectomy * Will significantly loosen insulin today and hold basal until postoperative period 10/02/23: * BSGs reasonably controlled yesterday w/ improved fasting BSG this morning of 148 mg/dL * Diet advanced to clears following EGD yesterday. Tentative plan for laparosc opic cholecystectomy next week. * Will do one more day of current basal dosing and increase tomorrow morning if needed 10/01/23: * 72 y/o F admitted with sepsis and cholecystitis. She seems to be a diabetic based on her A1c but was not on any anti-diabetic meds at home. * Patient came in was high BSG > 300 mg/dl. Basal and bolus insulins started last night. * Basal 5 units given last night but BSGs were elevated. Fasting = 246 mg/dl this morning. 12 units of basal dose given this morning which is based on a stress of 2. * Novolog parameters tightened to stress of 3 this morning. BSG at noon trended down to 134 mg/dl. * Will continue with basal dose once daily in the AM- dosing between stress of 2 and 3. PLAN FOR INPATIENT GLYCEMIC CONTROL: * Basal insulin * Lantus 0-8 units SC x 1 this evening (see EHR for details) * Bolus insulin * NovoLog per scale ACHS or Q6hrs while NPO * Goal Range: Low 120 mg/dL - High 150 mg/dL * Correction Factor: 30 mg/dL/unit * Nutritional / Prandial insulin per carb ratio of 1 unit per 10 grams CHO consumed
[2023-10-05] MEDS ORDERED: LANTUS PER UNIT CHARGE SC SCH ×2 (09:00→17:30)
[2023-10-05] MEDS ORDERED: DEXTROSE 50% 50 ML SYRINGE IV PRN (11:30)
[2023-10-05] MEDS ORDERED: INSULIN ASPART PER UNIT CHARGE SC SCH (12:00)
[2023-10-05] MEDS ORDERED: MIDAZOLAM HCL 1 MG/ML 2ML VIAL ONE (12:01)
[2023-10-05] MEDS ORDERED: DEXAMETHASONE SOD INJ 4 MG/ML VIAL ONE (12:01)
[2023-10-05] MEDS ORDERED: fentaNYL citrate PF 100 MCG/2 ML VIAL ONE ×2 (12:01→13:00)
[2023-10-05] MEDS ORDERED: LIDOCAINE 2% 2 ML VIAL/AMP(20MG/ML) INFIL ONE (12:01)
[2023-10-05] MEDS ORDERED: ONDANSETRON INJ 2 MG/ML 2 ML VIAL ONE ×2 (12:01→13:43)
[2023-10-05] MEDS ORDERED: PROPOFOL IV EMULSION 10 MG/ML 20 ML VIAL IV ONE (12:01)
[2023-10-05] MEDS ORDERED: INDOCYANINE GREEN 25 MG VIAL INJ ONE (12:02)
[2023-10-05] MEDS ORDERED: ATROPINE SULFATE 0.1 MG/ML 10ML SYR IV PRN (12:04)
[2023-10-05] MEDS ORDERED: fentaNYL citrate PF 100 MCG/2 ML VIAL IV PRN (12:04)
[2023-10-05] MEDS ORDERED: PROMETHAZINE HCL 6.25 MG in SODIUM CHLORIDE 0.9% 50 ML IV PRN (12:04)
--- NOTE | 2023-10-05 12:09 | Surgery Progress Note ---
Date of Service October 05, 2023 Assessment & Plan (1) Choledocholithiasis: Plan: choledocholithiasis s/p ercp, robotic cholecystectomy today plan for robotic assisted laparoscopic cholecystectomy risks discussed to include but not limited to bleeding, infection, retained stone, bile leak, open surgery, damage to surrounding structures including bile duct, need for future or more extensive surgery, failure to treat symptoms, and risks of anesthesia. possible d/c tomorrow ICG pre op (2) Acute gallstone pancreatitis: (3) Cholelithiasis: Admission and Anticipated Discharge Date Admission Date: September 30, 2023 Subjective 72 y/o female s/p ercp, bili trending down, no issues over weekend. NPO Physical Exam Constitutional: WD/WN, vitals as above Respiratory: normal respiratory effort, lungs clear to auscultation Cardiovascular: RRR, no murmur, no edema Gastrointestinal (Abdomen): normal bowel sounds, soft, nontender, no hepatosplenomegaly Results & Data Vital Signs (Past 12 Hours) Vital Signs Temp Pulse Pulse Resp BP BP Pulse Ox 10/05/23 11:16 36.8 C 76 17 174/91 H 95 10/05/23 08:00 10/05/23 07:42 36.8 C 73 18 152/81 H 97 10/05/23 07:00 70 10/05/23 03:13 37 C 74 16 161/94 H 95 10/05/23 00:34 72 O2 Del Method 10/05/23 11:16 Room Air 10/05/23 08:00 Room Air 10/05/23 07:42 Room Air 10/05/23 07:00 10/05/23 03:13 Room Air 10/05/23 00:34 Laboratory Results Laboratory Results - last 24 hr 10/04/23 10/04/23 10/04/23 12:20 12:21 12:49 WBC RBC Hgb Hct MCV MCH MCHC RDW Std Deviation RDW Coeff of Laura Plt Count MPV PT INR Sodium Potassium Chloride Carbon Dioxide Anion Gap BUN Creatinine Est Cr Clr Drug Dosing Est GFR ( Amer) Est GFR (Non-Af Amer) BUN/Creatinine Ratio Glucose POC Glucose 69 L* 69 L* 91 Calcium Phosphorus Magnesium Total Bilirubin AST ALT Alkaline Phosphatase Total Protein Albumin Globulin Albumin/Globulin Ratio 10/04/23 10/04/23 10/05/23 16:26 20:35 06:37 WBC 12.27 H RBC 3.31 L Hgb 10.7 L Hct 30.2 L MCV 91.2 MCH 32.3 MCHC 35.4 RDW Std Deviation 42.4 RDW Coeff of Laura 12.7 Plt Count 298 MPV 9.8 PT 11.9 INR 1.1 Sodium 139 Potassium 2.9 L Chloride 107 Carbon Dioxide 25 Anion Gap 7 BUN 4 L Creatinine 0.49 L Est Cr Clr Drug Dosing 105.1 Est GFR ( Amer) 112.8 Est GFR (Non-Af Amer) 97.3 BUN/Creatinine Ratio 8.2 L Glucose 70 POC Glucose 91 81 Calcium 7.5 L Phosphorus 2.2 L Magnesium 1.7 Total Bilirubin 2.4 H AST 44 H ALT 79 H Alkaline Phosphatase 164 H Total Protein 5.7 L Albumin 2.7 L Globulin 3.0 Albumin/Globulin Ratio 0.9 10/05/23 10/05/23 10/05/23 08:16 11:23 11:25 WBC RBC Hgb Hct MCV MCH MCHC RDW Std Deviation RDW Coeff of Laura Plt Count MPV PT INR Sodium Potassium Chloride Carbon Dioxide Anion Gap BUN Creatinine Est Cr Clr Drug Dosing Est GFR ( Amer) Est GFR (Non-Af Amer) BUN/Creatinine Ratio Glucose POC Glucose 71 66 L* 67 L* Calcium Phosphorus Magnesium Total Bilirubin AST ALT Alkaline Phosphatase Total Protein Albumin Globulin Albumin/Globulin Ratio 10/05/23 11:56 WBC RBC Hgb Hct MCV MCH MCHC RDW Std Deviation RDW Coeff of Laura Plt Count MPV PT INR Sodium Potassium Chloride Carbon Dioxide Anion Gap BUN Creatinine Est Cr Clr Drug Dosing Est GFR ( Amer) Est GFR (Non-Af Amer) BUN/Creatinine Ratio Glucose POC Glucose 123 H Calcium Phosphorus Magnesium Total Bilirubin AST ALT Alkaline Phosphatase Total Protein Albumin Globulin Albumin/Globulin Ratio PG Care Time/CCT Total # of Minutes Spent Total Time Spent with Patient: Total time spent is greater than 50% in coordination of care (as documented) at patient's floor/unit and/or counseling patient: Coding Level of Care Code 90618 SUB INP/OBS CARE Diagnoses Choledocholithiasis K80.50 Acute gallstone pancreatitis K85.10 Cholelithiasis K80.20
[2023-10-05] MEDS ORDERED: BUPIVACAINE 0.5 % 5 MG/1 ML MPF 30ML VIAL ONE (12:15)
--- NOTE | 2023-10-05 13:45 | Operative Report ---
PG Post Operative Report Pre & Post Diagnosis Operation Date: 10/05/23 07:00 Pre-Op Diagnosis: Cholecystitis Post-Op Diagnosis: Cholecystitis I identified the patient and participated in the time-out.: Yes Procedure Operation Date: 10/05/23 07:00 Actual Procedures p Robotic Assisted Laparoscopic Cholecystectomy(Not Applicable) - Valentin Ro DO, FACS Surgeon Valentin Ro DO, FACS [employer] Ivana Banegas Estimated Blood Loss 10 Findings Consistent with Post-Op Diagnosis (CBD stone removed, stent placed) Mild chronic cholecystitis, critical view of safety obtained, cystic duct and artery doubly clipped and divided, good hemostasis. Specimens Gallbladder Anesthesia Type General Complications none Disposition Accompanied Patient To Recovery: No Disposition: Recovery Room Indications 72-year-old female with recent history of choledocholithiasis and gallstone pancreatitis status post ERCP, plan for robotic cholecystectomy. The risks of the procedure were discussed, all questions were answered, and the patient agreed to proceed with surgery as planned. Description of Procedure The patient was properly identified, consented, and taken to the operating room where she was placed in the supine position. 2.5 mg of indocyanine green were administered IV approximately 45 min prior to the surgery. General endotracheal anesthesia was induced. SCDs and a safety belt were placed. Preoperative antibiotics were administered. The patient's abdomen was prepped and draped in the standard sterile fashion. A surgical timeout was performed and all parties were in agreement that this was the correct patient and procedure to be performed and we continued as planned. An incision was made just above the umbilicus and to the right of midline. Veress needle was inserted and saline drop test confirmed entry to the abdomen. The abdomen was insufflated with carbon dioxide which the patient tolerated incident. Veress needle was removed and the abdomen is entered using the Optiview technique and a 5 mm camera. The introducer was removed and the abdomen inspected. No damage from initial trocar placement or Veress needle placement was identified. There were no significant abnormalities to the 4 quadrants of the abdomen. 8 mm robotic ports were then placed on the left and right. An additional 5 mm timber management assistant port was placed in the lateral right subcostal position. The patient was placed in reverse Trendelenburg position and rotated towards the left. The robot was then docked and the camera and robotic instruments were inserted. The gallbladder was moderately chronically inflamed. The dome of the gallbladder was grasped by the timber management assistant and retracted towards the left upper quadrant and the infundibulum was retracted toward the right lower quadrant revealing Calot's triangle. Peritoneal attachments were taken down with electrocautery and blunt dissection. The cystic duct and artery were circum ferentially dissected. A window of safety was obtained showing the cystic duct entering the gallbladder with no aberrant structures noted. The cystic duct and artery were doubly clipped and divided. The gallbladder was then lifted off the gallbladder fossa with electrocautery. The right upper quadrant was irrigated and hemostasis was found to be good. The gallbladder was placed in an Endo Cat ch bag and removed through the one of the port sites. The instruments were removed and the robot was undocked. The trochars were removed and the abdomen was allowed to collapse. The skin of all ports was closed with 4-0 Monocryl subcuticular sutures. Dermabond was placed over the wounds. The patient was extubated in the operating room and taken to the PACU where she recovered without apparent incident. All sponge, instrument and needle counts were correct at the conclusion of the procedure. The patient tolerated the procedure well. The physician's timber management assistant was present and scrubbed for the entirety of the case and was essential in positioning the patient, prepping and draping, retraction and exposure, driving the laparoscope, exchange of the robotic instruments removal of the gallbladder, closure of the incisions, and placement of the dressings. I attest to the content of the Intraoperative Record and any orders documented therein. Any exceptions are noted below.
[2023-10-05] MEDS ORDERED: SUGAMMADEX SODIUM 200 MG/2 ML VIAL IV ONE (13:48)
--- NOTE | 2023-10-05 14:40 | Anesthesiology Progress Note ---
Date of Service October 05, 2023 Anesthesia Post Procedure Vital Signs Vital Signs: Temp Pulse Pulse Pulse Resp BP BP 10/05/23 14:35 73 17 136/90 10/05/23 14:25 72 16 165/88 H 10/05/23 14:15 77 24 174/83 H 10/05/23 14:05 36.4 C L 79 16 158/90 H 10/05/23 11:16 36.8 C 76 17 174/91 H 10/05/23 08:00 10/05/23 07:42 36.8 C 73 18 152/81 H 10/05/23 07:00 70 10/05/23 03:13 37 C 74 16 161/94 H 10/05/23 00:34 72 10/04/23 23:15 37 C 84 18 171/90 H 10/04/23 19:39 36.9 C 77 18 175/99 H 10/04/23 16:18 36.9 C 77 18 169/90 H 10/04/23 15:13 77 Pulse Ox O2 Del Method O2 Flow Rate 10/05/23 14:35 97 Oxymask 2 10/05/23 14:25 100 Oxymask 4 10/05/23 14:15 97 Oxymask 5 10/05/23 14:05 99 Oxymask 10/05/23 11:16 95 Room Air 10/05/23 08:00 Room Air 10/05/23 07:42 97 Room Air 10/05/23 07:00 10/05/23 03:13 95 Room Air 10/05/23 00:34 10/04/23 23:15 96 Room Air 10/04/23 19:39 96 Room Air 10/04/23 16:18 97 Room Air 10/04/23 15:13 Pain Intensity Abdomen: Pain Intensity: 0 Throat: Pain Intensity: 0 Transfer of Care Handoff Completed per policy Notes Mental Status: alert / awake / arousable Patient Amnestic to Procedure: Yes Nausea / Vomiting: adequately controlled Pain: adequately controlled Airway Patency, RR, SpO2: stable & adequate BP & HR: stable & adequate Hydration State: stable & adequate Anesthetic Complications: no major complications apparent and Pt Satisfied with anesthetic care
[2023-10-06] MEDS: PIPERACILLIN/TAZOBACTAM 4.5 GM in DEXTROSE 5% MINI-B 100 ML IV SCH ×3 (04:28→20:46)
[2023-10-06] MEDS ORDERED: oxyCODONE HCL IR 5 MG TAB (IMMEDIATE RELEASE) PO STA (06:13)
--- NOTE | 2023-10-06 07:33 | Surgery Progress Note ---
Date of Service October 06, 2023 Assessment & Plan (1) Cholelithiasis: Plan: Patient resting in bed RUQ discomfort 3/10 Denies Cp, SOB, Fever, Chills Diet advanced low fat Labs not drawn yet- will follow Abdomen soft, TTP RUQ, mildly distended, dermabond to port sites, CDI no signs infection noted Passing flatus and had sm bm VSS If labs are wnl pt may be d/c from gen surg stand point. Admission and Anticipated Discharge Date Admission Date: September 30, 2023 Supervising Physician Co-Signing Physician Notes pnt S&E, labs reviewed, agree with above. s/p ercp now POD#1 robotic cholecystectomy. Doing well, pain now better controlled, tolerated breakfast. afvss, abd soft, appropriately ttp, no guarding, incision w/o infection. wbc 15 (12) post op, lfts stable to downtrending. Okay to d/c home from gen surg standpoint. f/u in 2 weeks, wound care instructions, activity restrictions, and return precautions. Subjective Patient resting in bed RUQ discomfort 3/10 Denies Cp, SOB, Fever, Chills Diet advanced low fat Review of Systems Constitutional: no fever and no chills Eyes: + corrective lenses Ear, Nose, Mouth, Throat: no problem reported Respiratory: no cough and no dyspnea Cardiovascular: no chest pain Gastrointestinal: + abdominal pain; no bloating, no nausea and no vomiting Genitourinary: no dysuria Musculoskeletal: no muscle weakness Integumentary: + yellowing of the skin Neurologic: no confusion and no memory loss Physical Exam Physical Exam: alert oriented Constitutional: well developed, cooperative and comfortable; no acute distress ENMT: external ear and nose normal, oropharynx normal Neck: trachea midline, no thyromegaly Respiratory: normal respiratory effort and able to speak in complete sentences; no respiratory distress Cardiovascular: Rate/Rhythm: regular rate Gastrointestinal (Abdomen): Inspection/Auscultation: + abdomen distended Percussion/Palpation: + abdomen tender and abdomen soft; no guarding and abdomen not rigid Musculoskeletal: no cyanosis or clubbing, extremities motor strength 5/5 Skin: + jaundice Neurologic: awake; not confused Psychiatric: Orientation: alert and oriented x 3 Results & Data Vital Signs (Past 12 Hours) Vital Signs Temp Pulse Pulse Resp BP Pulse Ox O2 Del Method 10/06/23 07:00 81 10/06/23 03:00 97.9 F 69 18 144/80 H 96 Room Air 10/05/23 23:40 79 10/05/23 23:01 98.1 F 83 18 157/81 H 95 Room Air PG Care Time/CCT Total # of Minutes Spent Total Time Spent with Patient: Total time spent is greater than 50% in coordination of care (as documented) at patient's floor/unit and/or counseling patient: Coding Level of Care Code 03050 Post Operative Follow-Up Diagnoses Cholelithiasis K80.20
[2023-10-06] MEDS: HYDROmorphone INJ 0.5 MG/0.5 ML SYR IV PRN (07:50)
[2023-10-06] MEDS: SODIUM CHLORIDE 0.9% 1,000 ML IV SCH (07:51)
[2023-10-06] MEDS: POT PHOSPHATE MONOBASIC W/ SOD TAB PO SCH ×4 (07:53→20:46)
[2023-10-06] MEDS: PANTOprazole 40 MG TAB PO SCH ×2 (07:53→20:46)
[2023-10-06 08:07] LABS: Hematocrit (blood only) 33.5 % (37.0-47.0); Hemoglobin 11.6 g/dl (12.0-16.0); Mean Corpuscular Hemoglobin 31.9 pg (25.0-34.0); Mean Corpuscular Hgb Conc 34.6 g/dL (32.0-36.0); Mean Platelet Volume 9.5 fL (9.4-12.4); Platelet Count 344 K/uL (130-400); RDW Coefficient of Variation 12.9 % (11.5-14.5); Red Blood Count 3.64 M/uL (4.20-5.40); White Blood Count 15.12 K/ul (4.8-10.8)
[2023-10-06 08:24] LABS: Albumin Globulin Ratio 0.8 (0.9-2); Albumin Level 2.8 gm/dl (3.4-5.0); BUN Creatinine Ratio 7.8 (10-20); Bilirubin,Total 2.3 mg/dl (0.2-1.0); Calcium 7.9 mg/dl (8.6-10.3); Est GFR (African American) 111.3 ml/min; Est GFR (Non-African American) 96.1 ml/min; Globulin 3.5 gm/dl (2.5-4.0); Magnesium 1.7 mg/dl (1.7-2.4); Phosphorus 2.4 mg/dl (2.5-4.9); Potassium 3.5 mmol/L (3.5-5.1); Total Protein 6.3 gm/dl (6.0-8.3)
[2023-10-06] MEDS: INSULIN ASPART PER UNIT CHARGE SC SCH ×4 (09:35→20:39)
[2023-10-06] MEDS: ACETAMINOPHEN 325 MG TAB PO PRN ×3 (10:17→18:27)
[2023-10-06] MEDS ORDERED: POTASSIUM CHLORIDE CRTAB 20 MEQ TABCR PO STA (10:22)
--- NOTE | 2023-10-06 13:45 | Hospitalist Progress Note ---
Date of Service October 06, 2023 Assessment & Plan (1) Acute gallstone pancreatitis: Plan: 72 yo F with past med history significant for possible hiatal hernia and did not go to doctors for last 20 years comes because of abdominal pain radiating to the back started at 11 AM today. It was 8/10 in severity. Also with nausea. Denies any fevers. Had normal bowel movement prior to admission. Denies any chest pain or shortness of breath. No cough. No headache. No runny nose or sore throat. Otherwise appetite is okay. Otherwise ambulating and climbing steps okay. Patient states last few months she is having on and off abdominal pain after eating food but it is to subside but today it was persistent so she came to the ER. Acute gallstone pancreatitis Choledocholithiasis s/p ERCP Esophagitis (reflux) Presents with abdominal pain Elevated lipase Elevated LFTs. Gallbladder ultrasound and MRCP obtained - no acute cholecystitis, + cholelithiasis GI and gen. surgery consulted GI - pt is s/p EGD/ERCP - + esophagitis, + choledocholithiasis, stone removed and stent placed, plan to repeat ERCP in 3 months and remove the stent, cont. PO PPI bid for 3 months monitor LFTs checked lipid profile Cont. IV fluids, IV Dilaudid as needed, IV antiemetics as needed Closely monitor / bilirubin elevated today, after ERCP yesterday Seen by gen. surgery - plan for cholecystectomy on Thursday Cont. to monitor LFTs 10/03 Bilirubin improved today, cont. to monitor -abd. pain seemed resolved until pt ate breakfast then w/ some discomfort, cont. to monitor 10/04 Bilirubin continues to trend down. lipase down. WBC slightly up. Cont. zosyn, plan for cholecystectomy tmrw 10/05 Bilirubin cont. to trend down, LFTs trended down. Cont. zosyn, plan for surgery today 10/06 S/p cholecystectomy (on 10/05/23) yesterday, has some on and off abd. pain Hyperglycemia New onset diabetes Not been doctor for many years HbA1c level 9.6% placed on Lantus insulin sliding scale Follow blood sugars glycemic pharmacy consulted life educator - 1.) Lifestyle changes. 2.) SMBG 1x/day, change the time checking from day today. 3.) Add Metformin ER 500mg daily x 1 week --> Metformin ER 500mg BID. 4.) New dx/A1c > 9%- follow-up with new primary provider for further discussion and monitoring. Hypokalemia, hypophosphatemia d/t being npo, diet restriction replace and monitor DVT prophylaxis SCDs for now, ambulation encouraged Disposition Med/tele Full code Admission and Anticipated Discharge Date Admission Date: September 30, 2023 Subjective Pt seen in follow up of gallstone pancreatitis, choledocholithiasis Underwent ERCP, and underwent cholecystectomy yesterday Currently sitting up in bed in NAD, reports some post-surg. abd. pain on and off No fever, chills, chest pain, shortness of breath, n/v Review of Systems Review of Systems: All systems reviewed & are unremarkable except as noted in Subjective Physical Exam Physical Exam: General- WD/WN F in NAD Head- atraumatic Eyes- PERRL. no scleral icterus (resolved) ENT- oropharynx clear Neck- supple, no JVD. Lungs- clear to auscultation no wheezing or crackles. Heart- regular rhythm; no murmur, no gallop. Abdomen- normal bowel sounds, soft, + mild tenderness in RUQ and epigastric region (post-surgery - expected) Extremities- Trace pretibial edema, no erythema seen. Neuro- alert, oriented x 3; PERRL,; no facial palsy; no dysarthria; moves extremities. Skin- warm & dry, no jaundice (resolved) Results & Data Results & Data Vital Signs (Past 12 Hours) Vital Signs Temp Pulse Pulse Resp BP Pulse Ox O2 Del Method 10/06/23 11:53 36.6 C 81 16 163/83 H 95 Room Air 10/06/23 08:00 Room Air 10/06/23 07:00 81 10/06/23 03:00 36.6 C 69 18 144/80 H 96 Room Air Laboratory Results 10/06/23 10/06/23 10/06/23 Range/Units 12:09 08:07 07:36 WBC 15.12 H (4.8-10.8) K/ul RBC 3.64 L (4.20-5.40) M/uL Hgb 11.6 L (12.0-16.0) g/dl Hct 33.5 L (37.0-47.0) % MCV 92.0 (80.0-100.0) fL MCH 31.9 (25.0-34.0) pg MCHC 34.6 (32.0-36.0) g/dL RDW Std Deviation 43.0 (36.4-46.3) fL RDW Coeff of Laura 12.9 (11.5-14.5) % Plt Count 344 (130-400) K/uL MPV 9.5 (9.4-12.4) fL Sodium 139 (136-145) mmol/L Potassium 3.5 D (3.5-5.1) mmol/L Chloride 105 (98-107) mmol/L Carbon Dioxide 27 (21-32) mmol/L Anion Gap 7 (3-11) BUN 4 L (6-23) mg/dl Creatinine 0.51 L (0.6-1.2) mg/dl Est Cr Clr Drug Dosing 101.0 ml/min Est GFR ( Amer) 111.3 ml/min Est GFR (Non-Af Amer) 96.1 ml/min BUN/Creatinine Ratio 7.8 L (10-20) Glucose 104 H (70-99(Fasting)) mg/dl POC Glucose 111 H 90 (70-99) mg/dl Calcium 7.9 L (8.6-10.3) mg/dl Phosphorus 2.4 L (2.5-4.9) mg/dl Magnesium 1.7 (1.7-2.4) mg/dl Total Bilirubin 2.3 H (0.2-1.0) mg/dl AST 41 H (13-39) U/L ALT 66 H (7-52) U/L Alkaline Phosphatase 166 H (34-104) U/L Total Protein 6.3 (6.0-8.3) gm/dl Albumin 2.8 L (3.4-5.0) gm/dl Globulin 3.5 (2.5-4.0) gm/dl Albumin/Globulin Ratio 0.8 L (0.9-2) 10/05/23 10/05/23 10/05/23 Range/Units 23:47 20:07 15:06 WBC (4.8-10.8) K/ul RBC (4.20-5.40) M/uL Hgb (12.0-16.0) g/dl Hct (37.0-47.0) % MCV (80.0-100.0) fL MCH (25.0-34.0) pg MCHC (32.0-36.0) g/dL RDW Std Deviation (36.4-46.3) fL RDW Coeff of Laura (11.5-14.5) % Plt Count (130-400) K/uL MPV (9.4-12.4) fL Sodium (136-145) mmol/L Potassium (3.5-5.1) mmol/L Chloride (98-107) mmol/L Carbon Dioxide (21-32) mmol/L Anion Gap (3-11) BUN (6-23) mg/dl Creatinine (0.6-1.2) mg/dl Est Cr Clr Drug Dosing ml/min Est GFR ( Amer) ml/min Est GFR (Non-Af Amer) ml/min BUN/Creatinine Ratio (10-20) Glucose (70-99(Fasting)) mg/dl POC Glucose 146 H 182 H 97 (70-99) mg/dl Calcium (8.6-10.3) mg/dl Phosphorus (2.5-4.9) mg/dl Magnesium (1.7-2.4) mg/dl Total Bilirubin (0.2-1.0) mg/dl AST (13-39) U/L ALT (7-52) U/L Alkaline Phosphatase (34-104) U/L Total Protein (6.0-8.3) gm/dl Albumin (3.4-5.0) gm/dl Globulin (2.5-4.0) gm/dl Albumin/Globulin Ratio (0.9-2) 10/05/23 Range/Units 14:09 WBC (4.8-10.8) K/ul RBC (4.20-5.40) M/uL Hgb (12.0-16.0) g/dl Hct (37.0-47.0) % MCV (80.0-100.0) fL MCH (25.0-34.0) pg MCHC (32.0-36.0) g/dL RDW Std Deviation (36.4-46.3) fL RDW Coeff of Laura (11.5-14.5) % Plt Count (130-400) K/uL MPV (9.4-12.4) fL Sodium (136-145) mmol/L Potassium (3.5-5.1) mmol/L Chloride (98-107) mmol/L Carbon Dioxide (21-32) mmol/L Anion Gap (3-11) BUN (6-23) mg/dl Creatinine (0.6-1.2) mg/dl Est Cr Clr Drug Dosing ml/min Est GFR ( Amer) ml/min Est GFR (Non-Af Amer) ml/min BUN/Creatinine Ratio (10-20) Glucose (70-99(Fasting)) mg/dl POC Glucose 97 (70-99) mg/dl Calcium (8.6-10.3) mg/dl Phosphorus (2.5-4.9) mg/dl Magnesium (1.7-2.4) mg/dl Total Bilirubin (0.2-1.0) mg/dl AST (13-39) U/L ALT (7-52) U/L Alkaline Phosphatase (34-104) U/L Total Protein (6.0-8.3) gm/dl Albumin (3.4-5.0) gm/dl Globulin (2.5-4.0) gm/dl Albumin/Globulin Ratio (0.9-2) Medications Administered Current Inpatient Medications Acetaminophen (Acetaminophen 325 Mg Tab) 650 mg PO Q6H PRN PRN Reason: Mild Pain (1-3) Stop: 11/01/23 12:34 Last Admin: 10/06/23 10:17 Dose: 650 mg Glucagon (Glucagon For Inj 1 Mg Vial) 1 mg SQ UD PRN; Protocol PRN Reason: Hypoglycemia Protocol Stop: 10/31/23 01:00 Glucose (Glucose 10 Tab/Tube) 4 - 8 tab PO UD PRN; Protocol PRN Reason: Hypoglycemia Treatment Stop: 10/31/23 01:00 Glucose (Glucose 40% Gel 15 Gm Tube) 15 - 30 gm PO UD PRN; Protocol PRN Reason: Hypoglycemia Protocol Stop: 10/31/23 01:00 Hydromorphone HCl (Hydromorphone Inj 0.5 Mg/0.5 Ml Syr) 0.5 mg IV Q3H PRN PRN Reason: Pain Stop: 10/15/23 01:00 Last Admin: 10/06/23 07:50 Dose: 0.5 mg Piperacillin Sod/Tazobactam (Sod 4.5 gm/ Dextrose) 100 mls @ 25 mls/hr IV Q8H [facility]; Protocol Stop: 10/11/23 03:59 Last Admin: 10/06/23 12:44 Dose: 25 mls/hr Insulin Aspart (Insulin Aspart Per Unit Charge) 0 units SC ACHS [facility] Stop: 11/04/23 11:59 Last Admin: 10/06/23 09:35 Dose: Not Given Miscellaneous (Carbohydrates For Hypoglycemia ) 15 - 30 gm PO UD PRN PRN Reason: Hypoglycemia Protocol Stop: 10/31/23 01:00 Last Admin: 10/04/23 12:33 Dose: 15 gm Miscellaneous Information (Pharmacy Glycemic Mgmt Consult) 1 each N/A UD PRN PRN Reason: Consult Stop: 10/31/23 01:00 Oxycodone HCl (Oxycodone Hcl Ir 5 Mg Tab (Immediate Release)) 5 mg PO Q4H PRN PRN Reason: Mod-Sev Pain (Scale 4-10) Stop: 10/20/23 07:33 Pantoprazole Sodium (Pantoprazole 40 Mg Tab) 40 mg PO BID [facility] Stop: 10/31/23 12:14 Last Admin: 10/06/23 07:53 Dose: 40 mg Potassium Phosphate (Pot Phosphate Monobasic W/ Sod Tab) 1 tab PO QID [facility] Stop: 11/03/23 12:59 Last Admin: 10/06/23 12:44 Dose: 1 tab
[2023-10-06] MEDS: oxyCODONE HCL IR 5 MG TAB (IMMEDIATE RELEASE) PO PRN ×2 (15:05→20:46)
[2023-10-06] MEDS ORDERED: LANTUS PER UNIT CHARGE SC SCH (21:00)
[2023-10-07] MEDS: ACETAMINOPHEN 325 MG TAB PO PRN ×2 (00:18→07:44)
[2023-10-07] MEDS: oxyCODONE HCL IR 5 MG TAB (IMMEDIATE RELEASE) PO PRN ×2 (04:18→10:20)
[2023-10-07] MEDS: PIPERACILLIN/TAZOBACTAM 4.5 GM in DEXTROSE 5% MINI-B 100 ML IV SCH (04:55)
[2023-10-07 07:33] LABS: Hematocrit (blood only) 31.7 % (37.0-47.0); Hemoglobin 11.1 g/dl (12.0-16.0); Mean Corpuscular Hemoglobin 32.2 pg (25.0-34.0); Mean Corpuscular Volume 91.9 fL (80.0-100.0); Mean Platelet Volume 9.6 fL (9.4-12.4); Platelet Count 344 K/uL (130-400); RDW Coefficient of Variation 13.3 % (11.5-14.5); RDW Standard Deviation 44.4 fL (36.4-46.3); Red Blood Count 3.45 M/uL (4.20-5.40); White Blood Count 15.65 K/ul (4.8-10.8)
[2023-10-07 08:10] LABS: Alanine Aminotransferase 52 U/L (7-52); Albumin Globulin Ratio 0.8 (0.9-2); Albumin Level 2.7 gm/dl (3.4-5.0); Alkaline Phosphatase 161 U/L (34-104); Anion Gap 8 (3-11); BUN Creatinine Ratio 11.4 (10-20); Bilirubin,Total 2.3 mg/dl (0.2-1.0); Blood Urea Nitrogen 5 mg/dl (6-23); Calcium 7.9 mg/dl (8.6-10.3); Carbon Dioxide 26 mmol/L (21-32); Chloride 102 mmol/L (98-107); Creatinine Clr Calc Pharmacy 117.1 ml/min; Est GFR (African American) 116.9 ml/min; Est GFR (Non-African American) 100.8 ml/min; Globulin 3.5 gm/dl (2.5-4.0); Glucose 126 mg/dl (70-99(Fasting)); Magnesium 1.7 mg/dl (1.7-2.4); Phosphorus 2.9 mg/dl (2.5-4.9); Sodium 136 mmol/L (136-145); Total Protein 6.2 gm/dl (6.0-8.3)
--- NOTE | 2023-10-07 08:18 | Surgery Progress Note ---
Date of Service October 07, 2023 Assessment & Plan (1) Cholelithiasis: Plan: POD 2 Denies Cp, SOB, Fever, Chills Diet advanced low fat no n/v Abdomen soft, TTP RUQ, mildly distended, dermabond to port sites, CDI no signs infection noted Passing flatus and bm's VSS LFTs downtrending OK to discharge from a surgical standpoint, F/U in office [address] Ro , call with questions/concerns Admission and Anticipated Discharge Date Admission Date: September 30, 2023 Supervising Physician Co-Signing Physician Notes pnt S&E, labs reviewed, agree with above. s/p ercp now POD#2 robotic cholecystectomy. Doing well. afvss, abd soft, appropriately ttp, no guarding, incision w/o infection. wbc 15 (15) post op, lfts stable to downtrending. Okay to d/c home from gen surg standpoint. f/u in 2 weeks, wound care instructions, activity restrictions, and return precautions. Subjective Pt denies abd pain, N.V, Cp , sob Verbalizes wanting to go home Review of Systems Constitutional: no fever and no chills Eyes: + corrective lenses Ear, Nose, Mouth, Throat: no problem reported Respiratory: no cough and no dyspnea Cardiovascular: no chest pain Gastrointestinal: no bloating, no nausea and no vomiting Genitourinary: no dysuria Musculoskeletal: no muscle weakness Integumentary: no rash Neurologic: no confusion and no memory loss Physical Exam Physical Exam: alert oriented Constitutional: well developed, cooperative and comfortable; no acute distress ENMT: external ear and nose normal, oropharynx normal Neck: trachea midline, no thyromegaly Respiratory: normal respiratory effort and able to speak in complete sentences; no respiratory distress Cardiovascular: Rate/Rhythm: regular rate Gastrointestinal (Abdomen): Inspection/Auscultation: + abdomen distended Percussion/Palpation: + abdomen tender and abdomen soft; no guarding and abdomen not rigid Musculoskeletal: no cyanosis or clubbing, extremities motor strength 5/5 Neurologic: awake; not confused Psychiatric: Orientation: alert and oriented x 3 Results & Data Vital Signs (Past 12 Hours) Vital Signs Temp Pulse Pulse Resp BP BP Pulse Ox 10/07/23 07:32 98.8 F 88 18 173/84 H 92 10/07/23 04:00 97.9 F 80 18 162/82 H 94 10/07/23 00:44 78 10/06/23 22:00 98.2 F 85 18 137/75 94 O2 Del Method 10/07/23 07:32 Room Air 10/07/23 04:00 Room Air 10/07/23 00:44 10/06/23 22:00 Room Air PG Care Time/CCT Total # of Minutes Spent Total Time Spent with Patient: Total time spent is greater than 50% in coordination of care (as documented) at patient's floor/unit and/or counseling patient: Coding Level of Care Code 92447 Post Operative Follow-Up Diagnoses Cholelithiasis K80.20
[2023-10-07] MEDS: POT PHOSPHATE MONOBASIC W/ SOD TAB PO SCH (08:25)
[2023-10-07] MEDS: PANTOprazole 40 MG TAB PO SCH (08:25)
[2023-10-07] MEDS ORDERED: LANTUS PER UNIT CHARGE SC SCH (09:00)
[2023-10-07] MEDS: INSULIN ASPART PER UNIT CHARGE SC SCH (09:05)
[2023-10-07 09:11] LABS: Potassium 3.7 mmol/L (3.5-5.1)
--- NOTE | 2023-10-07 09:50 | Discharge Summary ---
Date of Service October 07, 2023 Admission HPI Per Admitting Provider 72-year-old female with past med history significant for possible hiatal hernia and did not go to doctors for last 20 years comes because of abdominal pain radiating to the back started at 11 AM today. It was 8/10 in severity. Also with nausea. Denies any fevers. Had normal bowel movement today morning. Normal bladder movements. Denies any chest pain or shortness of breath. No cough. No headache. No runny nose or sore throat. Otherwise appetite is okay. Otherwise ambulating and climbing steps okay. Patient states last few months she is having on and off abdominal pain after eating food but it is to subside but today it was persistent so she came to the ER. Currently pain is 2/10 in severity. Resting comfortably. Past medical history. As mentioned above Past surgical history. Denies any surgeries Social history. Social smoking. Alcohol occasional. No drug use. Family history. Mother had skin cancer. Brother had skin cancer. Admission Exam Per Admitting Provider General-Not in distress Head- atraumatic Eyes- PERRL. ENT- oropharynx clear Neck- supple, no JVD. Lungs- clear to auscultation no wheezing or crackles. Heart- regular rhythm; no murmur, no gallop. Abdomen- normal bowel sounds, soft, mild tenderness in RUQ and epigastric region Extremities- Trace pretibial edema, no erythema seen. Neuro- alert, oriented x 3; PERRL,; no facial palsy; no dysarthria; moves extremities. Skin- warm & dry Principal Diagnosis Acute gallstone pancreatitis Choledocholithiasis s/p ERCP Cholelithiasis S/p cholecystectomy Esophagitis Discharge Exam General- WD/WN F in NAD Head- atraumatic Eyes- PERRL. no scleral icterus (resolved) ENT- oropharynx clear Neck- supple, no JVD. Lungs- clear to auscultation no wheezing or crackles. Heart- regular rhythm; no murmur, no gallop. Abdomen- normal bowel sounds, soft, + mild tenderness in RUQ and epigastric region (post-surgery - expected) Extremities- Trace pretibial edema, no erythema seen. Neuro- alert, oriented x 3; PERRL,; no facial palsy; no dysarthria; moves extremities. Skin- warm & dry, no jaundice (resolved) Discharge Data Allergies Allergy/AdvReac Type Severity Reaction Status Date / Time aspirin Allergy ringing Verified 09/30/23 22:08 ears,shakes,diarrhea,upset stomach Tetanus Vaccines and Toxoid Allergy convulsions Verified 09/30/23 22:09 acesulfame AdvReac Migraine Verified 10/01/23 09:59 aspartame AdvReac Migraine Verified 10/01/23 09:59 coconut AdvReac Diarrhea Verified 09/30/23 22:13 diazepam [From Valium] AdvReac doesn't Verified 09/30/23 22:12 work Neotame AdvReac Migraine Verified 10/01/23 09:59 procaine [From Novocain] AdvReac lucero't Verified 09/30/23 22:12 work saccharin AdvReac Migraine Verified 10/01/23 09:59 sucralose AdvReac Migraine Verified 10/01/23 09:59 Consultations 09/30/23 21:09 Consult General Surgery Stat 09/30/23 21:12 ED Decision to Admit Stat Procedures Performed Operation Date: 10/05/23 07:00 Actual Procedures p Robotic Assisted Laparoscopic Cholecystectomy(Not Applicable) - Valentin Ro, DO, FACS Ordered Studies 09/30/23 16:43 CT abd pelvis IV con only Stat FINDINGS: Lung bases: Unremarkable. No mass. No consolidation. ABDOMEN: Liver: Hepatic steatosis. Gallbladder and bile ducts: Cholelithiasis. No ductal dilation. Pancreas: Unremarkable. No mass. No ductal dilation. Spleen: Unremarkable. No splenomegaly. Adrenals: Unremarkable. No mass. Kidneys and ureters: Unremarkable. No hydronephrosis or delayed nephrogram. Stomach and bowel: Unremarkable. No obstruction. No mucosal thickening. PELVIS: Appendix: No findings to suggest acute appendicitis. Bladder: Decompressed urinary bladder. Reproductive: Unremarkable as visualized. ABDOMEN and PELVIS: Intraperitoneal space: Unremarkable. No free air. No significant fluid collection. Bones/joints: No acute fracture. No dislocation. Soft tissues: Unremarkable. Vasculature: Unremarkable. No abdominal aortic aneurysm. Lymph nodes: Unremarkable. No enlarged lymph nodes. IMPRESSION: 1. No hydronephrosis or delayed nephrogram. 2. Hepatic steatosis. 3. Cholelithiasis. 09/30/23 21:31 US GB [US gallbladder] Stat FINDINGS: Gallbladder: Cholelithiasis. No gallbladder wall thickening. Negative Acrson sign. Common bile duct: Unremarkable as visualized. No stones. No dilation. Normal, 5 mm common bile duct. Pancreas: Unremarkable as visualized. IMPRESSION: Cholelithiasis. No gallbladder wall thickening. Negative Carson sign. 10/01/23 00:13 MR MRCP Stat FINDINGS: Lower thorax: Mild to moderate hiatal hernia. Bile ducts: Unremarkable. Normal size of the common bile duct with no evidence of bile duct stones. There is smooth tapering of the common bile duct at the sphincter of Waylon. Gallbladder: Multiple tiny gallstones along the dependent portion of the gallbladder neck. Liver: Unremarkable. Pancreas: Unremarkable. No ductal dilation. Spleen: Unremarkable. No splenomegaly. Adrenals: Unremarkable. No mass. Kidneys and ureters: Mild bilateral perinephric stranding, otherwise normal bilateral kidneys. No hydronephrosis. Stomach and bowel: Unremarkable. No obstruction. IMPRESSION: 1. Multiple tiny gallstones otherwise unremarkable gallbladder with no signs of acute cholecystitis. 2. No biliary distention or biliary duct stone seen. 10/01/23 10:56 US upper EUS PACS images Routine 10/01/23 11:00 FL ERCP biliary ductal Routine Diabetes Follow up Diabetes Follow-up Needed for HgbA1c >9%,Newly Diagnosed Diabetes Hospital Course (1) Acute gallstone pancreatitis: 72 yo F with past med history significant for possible hiatal hernia and did not go to doctors for last 20 years comes because of abdominal pain radiating to the back started at 11 AM today. It was 8/10 in severity. Also with nausea. Denies any fevers. Had normal bowel movement prior to admission. Denies any chest pain or shortness of breath. No cough. No headache. No runny nose or sore throat. Otherwise appetite is okay. Otherwise ambulating and climbing steps okay. Patient states last few months she is having on and off abdominal pain after eating food but it is to subside but today it was persistent so she came to the ER. Acute gallstone pancreatitis Choledocholithiasis s/p ERCP Esophagitis (reflux) Presents with abdominal pain Elevated lipase Elevated LFTs. Gallbladder ultrasound and MRCP obtained - no acute cholecystitis, + cholelithiasis GI and gen. surgery consulted GI - pt is s/p EGD/ERCP - + esophagitis, + choledocholithiasis, stone removed and stent placed, plan to repeat ERCP in 3 months and remove the stent, cont. PO PPI bid for 3 months monitor LFTs checked lipid profile Cont. IV fluids, IV Dilaudid as needed, IV antiemetics as needed Closely monitor 10/02 bilirubin elevated today, after ERCP yesterday Seen by gen. surgery - plan for cholecystectomy on Thursday Cont. to monitor LFTs 10/03 Bilirubin improved today, cont. to monitor -abd. pain seemed resolved until pt ate breakfast then w/ some discomfort, cont. to monitor 10/04 Bilirubin continues to trend down. lipase down. WBC slightly up. Cont. zosyn, plan for cholecystectomy tmrw 10/05 Bilirubin cont. to trend down, LFTs trended down. Cont. zosyn, plan for surgery today 10/06 S/p cholecystectomy (on 10/05/23) yesterday, has some on and off abd. pain 10/07 LFTs stable/ downtrending, ok to discharge per surgery. Pt is feeling well this AM. 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 2.) SMBG 1x/day, change the time checking from day today. 3.) Add Metformin ER 500mg daily x 1 week --> Metformin ER 500mg BID. 4.) New dx/A1c > 9%- follow-up with new primary provider for further discussion and monitoring. Hypokalemia, hypophosphatemia d/t being npo, diet restriction replace and monitor Total Time Total Time Spent Total Time Spent (In Minutes): 40 Discharge Plan Discharge Items Patient Disposition: Home - Self-Care Reason For Visit: ABDOMINAL PAIN,CHOLECYSTITIS,ELEVATED LFT,SEPSIS Discharge Diagnosis: Acute gallstone pancreatitis Choledocholithiasis s/p ERCP Cholelithiasis S/p cholecystectomy Esophagitis Activity: Per Instructions section Lifting: No more than 10 pounds Bathing Comment: may shower; no soaking in tubs/pools x 2 weeks Exercise/Sports: Wait until after follow-up appointment Driving/Machine Use: no driving while taking narcotics for pain Non-emergency contact: Surgeon Call non-emergency contact if: you have any medication questions, your symptoms worsen, your pain is unusual for you, you have a fever, your temperature is above 101.5, your wound has increased redness, your wound has increased drainage and your wound pain has increased Follow-up/Referrals: Valentin Ro DO, FACS [Physician] - (Please call to schedule follow up in clinic within 2 weeks ) Iván Liz MD [Outside Practitioners] - (Date & Time 10/13/2023 9:00 AM Provider Iván Liz MD [facility] ) Juan Craig MD [Physician] - (The GI office will contact you for a follow up procedure/appointment.) Diet: Carb Consistent or DM2 and Low Fat Addtl Attending Provider Instructions: Follow up with your primary care doctor, train crew member, and general surgeon. The appointment with your primary care physician was scheduled for you for October 13. Finish antibiotic treatment with augmentin as prescribed. You were diagnosed with diabetes, it is important that you check your blood sugar levels, as you were instructed in the hospital. Start taking metformin 500 mg daily with a meal. After a week, you can increase metformin to twice a day. It is crucial that you follow-up with your primary care physician regarding this, so that your diabetes is under control. For pain, you can take Tylenol 1000 mg 3 times a day, max daily dose is 3,000 mg. For more severe pain, take oxycodone as prescribed, as needed. You were also diagnosed with reflux esophagitis, take pantoprazole as prescribed. Discuss further with your train crew member when you can stop the medication. For constipation, recommend to take miralax daily as needed. Addtl Pond Tender Provider Instructions: Per surgery : You have skin glue over your incisions called dermabond. you may shower with this on. It will tend to dissolve and fall off within a couple weeks. Do not pick at the skin glue Pending Studies at Discharge: Yes Studies:: surgical pathology Stand-Alone Forms: My [employer], Smoking Cessation Medications and DC Order Prescriptions: New pantoprazole 40 mg Tablet,Delayed Release (Dr/Ec) 40 mg PO BID Qty: 60 0RF metformin 500 mg tablet extended release 24 hr 500 mg PO BID Qty: 60 0RF oxycodone 5 mg Tablet 5 mg PO Q4H PRN (Reason: pain) Qty: 14 0RF amoxicillin-pot clavulanate 875-125 mg tablet 1 tab PO BID 2 Days Qty: 4 0RF Discharge Orders: Discharge Order (Routine); Ordered 10/07/23 Ordered By: Tim Abraham/Other Patient Handouts: Diabetes: Meal Planning, Type 2 Diabetes Admission Data Admit Date/Time: 09/30/23 23:11 Attending Provider: Tim Cruz Admit Provider: Drake Arroyo Primary Care Provider: PCP,NO Other Providers: Valentin Ro; Drake Arroyo
--- NOTE | 2023-10-10 12:13 | Coding Query ---
SEPSIS To promote full compliance with coding requirements relating to patient care, physician participation is requested in all cases of health information coder uncertainty. Please assist us with the question(s) below: In responding to this query, please exercise your independent professional judgement. The fact that a question is asked does not imply that any particular answer is desired or expected. We appreciate your clarification on this issue. The medical record reflects the following clinical findings: Pt admitted with biliary pancreatitis and choledocholithiasis. DS documented under 'Reason for admission" Sepsis. Seeking to determine if this condition was treated/managed during this inpatient stay. Please check below if applicable. Thank you ! CARRIE Archer [facility] ____ ( )Bacteremia (Nonspecific laboratory finding of bacteria in the blood) Specify Organism ( ) Present on Admission ( ) Not present on admission ( ) Unable to clinically determine ( ) Septicemia (Systemic disease associated with the presence of pathogenic microorganisms in the blood): Specify Organism ( ) Present on Admission ( ) Not present on admission ( ) Unable to clinically determine ( ) Sepsis Specify Organism Specify Associated Condition/Diagnosis ( ) Present on Admission ( ) Not present on admission ( ) Unable to clinically determine ( ) Severe Sepsis (Sepsis associated with acute organ dysfunction) Specify Organism Specify Associated Condition/Diagnosis ( ) Present on Admission ( ) Not present on admission ( ) Unable to clinically determine ( ) Septic Shock (Severe sepsis with acute circulatory failure, unexplained by other causes) ( ) Present on Admission ( ) Not present on admission ( ) Unable to clinically determine ( ) Other, patient has: MTDD
== END 2023-10-07 10:58 | disposition home or self-care (01) | DRG 417 ==
LOC: ED 16:32 → EDINP 23:11 → 2W 10-01 15:32